=== PATIENT | male | born 1960 | race African-American/Black ===

== ENCOUNTER 2016-06-08 22:32 | Emergency (ER) | payer OTHER ==
[2016-06-08 22:59] VITALS: BP 108/80; PULSE 50; TEMP 98.1; BMI 22.3
[2016-06-08] MEDS ORDERED: morphine CARPU-JECT 4 MG/1 ML DISP.SYRIN IVPUSH ONE ×2 (23:18→23:58)
[2016-06-08] MEDS ORDERED: morphine CARPU-JECT 4 MG/1 ML DISP.SYRIN ONE (23:25)
[2016-06-09] LABS: BASOPHIL 0.6 % (0-2.0); EOSINOPHIL 2.3 % (0-4.5); MCH 29.4 pg (25.7-33.7); MCHC 33.3 g/dl (32.0-35.9); MEAN CELL VOLUME 88.1 fl (80-96); NEUTROPHILS 71.7 % (42.8-82.8); PLATELET COUNT 336 K/MM3 (134-434); RDW 13.2 % (11.9-15.9); WHITE BLOOD COUNT 9.9 K/mm3 (4.0-10.0)
--- NOTE | 2016-06-09 00:01 | PDOC ---
History of Present Illness - History of Present Illness Initial Comments: 06/09/16 00:04 Patient is a 55 year old male with significant medical hx of pacemaker, CVA x 2 , HTN, HLD, CAD s/p MA and defibrillator, and chronic lower back pain who is presenting to ED with lower back pain for several days that worsened today. The patient underwent an elective laminectomy and posterior fusion at L4-L5 on 05/29, performed by Dr. William Otoole at [facility]. The patient was discharged one week ago after surgery. Since his surgery, the patient complains of persistent lower back pain that has worsened today. Patient notes that his pain worsens with movement and palpation. His pain radiates to his left anterior thigh with some numbness. Denies fever, chills, chest pain, or shortness of breath. <Eloise Lozada - Last Filed: 06/09/16 00:37> - General History Source: Patient, Old Records Exam Limitations: No Limitations <Francisco Verdugo - Last Filed: 06/11/16 12:50> - General Chief Complaint: Back Pain Stated Complaint: CHEST PAIN Time Seen by Provider: 06/08/16 23:06 Past History <Eliose Lozada - Last Filed: 06/09/16 00:37> - Past Medical History Asthma: No Cardiac Disorders: Yes (defibrillator/ PACEMAKER, hx [place]) CVA: Yes (2013 / mild weakness left side ) Dementia: No Diabetes: No GI Disorders: No Disorders: No HTN: Yes Liver Disease: No Seizures: No Thyroid Disease: No - Surgical History Abdominal Surgery: Yes (hernia repair 1983) Cardiac Surgery: Yes (PACEMAKER/DEFIB: 2011) - Immunization History Immunization Up to Date: Yes - Psycho/Social/Smoking Cessation Hx Anxiety: No Suicidal Ideation: No Smoking Status: No Smoking History: Former smoker Have you smoked in the past 12 months: No Number of Cigarettes Smoked Daily: 0 If you are a former smoker, when did you quit?: 20 YEARS AGO Information on smoking cessation initiated: No 'Breaking Loose' booklet given: 09/17/13 Hx Alcohol Use: No Drug/Substance Use Hx: No Substance Use Type: Alcohol, Cocaine Hx Substance Use Treatment: Yes (detox, rehab, 12 steps) <Francisco Verdugo - Last Filed: 06/11/16 12:50> - Past Medical History Allergies/Adverse Reactions: Allergies Allergy/AdvReac Type Severity Reaction Status Date / Time diphenhydramine HCl Allergy Mild hives/blist Verified 06/08/16 22:59 [From [facility]] ers. Home Medications: Ambulatory Orders Carvedilol 12.5 mg PO DAILY 12/09/14 Enoxaparin Sodium 80 mg SQ DAILY 12/09/14 Nitroglycerin [Nitrostat] 0.4 mg SL BID PRN 12/09/14 Omeprazole [Prilosec (RX)] 40 mg PO DAILY 12/09/14 Simvastatin [Zocor -] 20 mg PO HS 12/09/14 Valsartan [Diovan -] 80 mg PO DAILY 12/09/14 Oxycodone HCl/Acetaminophen [Percocet 10-325 mg Tablet] 1 each PO TID PRN #90 tablet MDD 3 05/04/16 Azithromycin [Zithromax 250mg Tablets -] 250 mg PO DAILY #1 pkt 06/09/16 Oxycodone HCl/Acetaminophen [Percocet 5-325 mg Tablet] 1 tab PO Q6H PRN #6 tablet MDD 3 06/09/16 Review of Systems - Review of Systems Comments:: 06/09/16 00:10 GENERAL/CONSTITUTIONAL: No fever or chills. No weakness. HEAD, EYES, EARS, NOSE AND THROAT: No change in vision. No ear pain or discharge. No sore throat. CARDIOVASCULAR: No chest pain or shortness of breath. RESPIRATORY: No cough, wheezing, or hemoptysis. GASTROINTESTINAL: No nausea, vomiting, diarrhea or constipation. GENITOURINARY: No dysuria, frequency, or change in urination. MUSCULOSKELETAL: Lower back pain. No joint or muscle swelling or pain. No neck pain. SKIN: No rash NEUROLOGIC: No headache, vertigo, loss of consciousness, or change in strength/ sensation. <Eloise Lozada - Last Filed: 06/09/16 00:37> *Physical Exam - Vital Signs Last Vital Signs Temp Pulse Resp BP Pulse Ox 98.1 F 50 L 18 108/80 99 06/08/16 22:46 06/08/16 22:46 06/08/16 22:46 06/08/16 22:46 06/08/16 22:46 - Physical Exam Comments: 06/09/16 00:10 GENERAL: Awake, alert, and fully oriented, in no acute distress HEAD: No signs of trauma EYES: PERRLA, EOMI, sclera anicteric, conjunctiva clear ENT: Auricles normal inspection, hearing grossly normal, nares patent, oropharynx clear without exudates. Moist mucosa NECK: Normal ROM, supple, no lymphadenopathy, JVD, or masses LUNGS: Breath sounds equal, clear to auscultation bilaterally. No wheezes, and no crackles HEART: Pacemaker on left side of the chest. Regular rate and rhythm, normal S1 and S2, no murmurs, rubs or gallops ABDOMEN: Soft, nontender, normoactive bowel sounds. No guarding, no rebound. No masses EXTREMITIES: Normal range of motion, no edema. No clubbing or cyanosis. No cords, erythema, or tenderness BACK: Straight leg raise positive test LLE at 30. Lower back post operative vertical incision approximately 12 cm that is clean, dry, and intact with no erythema or drainage. Tender to palpation. NEUROLOGICAL: Cranial nerves II through XII grossly intact. Normal speech, normal gait SKIN: Warm, Dry, normal turgor, no rashes or lesions noted. ENDOCRINE: No increased thirst. No abnormal weight change. HEMATOLOGIC/LYMPHATIC: No anemia, easy bleeding, or history of blood clots. ALLERGIC/IMMUNOLOGIC: No hives or skin allergy. <Eloise Lozada - Last Filed: 06/09/16 00:37> - Vital Signs Last Vital Signs Temp Pulse Resp BP Pulse Ox 98.1 F 50 L 18 108/80 99 06/08/16 22:46 06/08/16 22:46 06/08/16 22:46 06/08/16 22:46 06/08/16 22:46 <Francisco Verdugo - Last Filed: 06/11/16 12:50> ED Treatment Course - LABORATORY CBC & Chemistry Diagram: 06/08/16 23:46 06/08/16 23:46 - Medications Given in the ED: ED Medications Discontinued Medications Generic Name Dose Route Start Last Admin Trade Name Freq PRN Reason Stop Dose Admin Morphine Sulfate 4 mg 06/08/16 23:18 06/08/16 23:53 Morphine Injection - IVPUSH 06/08/16 23:19 4 mg ONCE ONE Administration <Eloise Lozada - Last Filed: 06/09/16 00:37> - LABORATORY CBC & Chemistry Diagram: 06/08/16 23:46 06/08/16 23:46 - RADIOLOGY Radiology Studies Ordered: Category Date Time Status LUMBAR SPINE CT W/WO CONTRAST [CT] Stat CT Scan 06/08/16 23:18 Ordered CHEST X-RAY PORTABLE* [RAD] Stat Radiology 06/08/16 23:18 Taken - Medications Given in the ED: ED Medications Discontinued Medications Generic Name Dose Route Start Last Admin Trade Name Coby PRN Reason Stop Dose Admin Morphine Sulfate 4 mg 06/08/16 23:18 06/08/16 23:53 Morphine Injection - IVPUSH 06/08/16 23:19 4 mg ONCE ONE Administration <Francisco Verdugo - Last Filed: 06/11/16 12:50> Medical Decision Making - Medical Decision Making 06/09/16 00:01 A portion of this note was documented by scribe services under my direction. I have reviewed the details of the note, within reason, and agree with the documentation with the following case summary and management plan written by me. Patient treated in the ED. Nursing notes are reviewed and incorporated into the medical decision-making. Vital signs reviewed. Peripheral IV access obtained by the nurse, laboratory studies are drawn and sent, reviewed and interpreted by myself. Vital Signs Temp Pulse Resp BP Pulse Ox 98.1 F 50 L 18 108/80 99 06/08/16 22:46 06/08/16 22:46 06/08/16 22:46 06/08/16 22:46 06/08/16 22:46 55 year old male with Past medical history of hypertension, hyperlipidemia, coronary artery disease, chronic lower back pain presents to the [facility] department for acute lower back pain. On May 29, the patient had an elective laminectomy and posterior fusion at L4-L5 with bilateral transpedicular screws coupled intervening short vertical rods by Dr. William Otoole at [facility]. Patient had stayed inpatient in the hospital and was discharged one week ago to home. He has been having persistent postoperative lower back pain since his surgery. However, the last several days, patient noted acute worsening lower back pain. Noted today, without trauma, patient was experiencing severe lower back pain with flexion and movement and palpation creating shooting numbing sensations to the anterior left thigh. The patient does not have chest pain or shortness of breath. He has no thoracic complaints at this time. I suspect that this may potentially be postoperative pain. However, we'll obtain a cervical spine CT to look for postoperative competitions. Patient is also complaining about mild chest congestion and cough for 2 weeks. We'll get a chest x-ray rule out pneumonia given that the patient is postoperative. However , patient denies any fevers or chills. He is nontoxic appearing. If negative, will likely start empiric azithromycin. 06/09/16 01:46 CBC, BMP 06/08/16 23:46 06/08/16 23:46 CMP Sodium 141 mmol/L (136-145) 06/08/16 23:46 Potassium 4.1 mmol/L (3.5-5.1) 06/08/16 23:46 Chloride 105 mmol/L (98-107) 06/08/16 23:46 Carbon Dioxide 25 mmol/L (21-32) 06/08/16 23:46 Anion Gap 11 (8-16) 06/08/16 23:46 BUN 10 mg/dL (7-18) 06/08/16 23:46 Creatinine 1.1 mg/dL (0.7-1.3) 06/08/16 23:46 Creat Clearance w eGFR > 60 (>60) 06/08/16 23:46 Random Glucose 110 mg/dL (74-106) H D 06/08/16 23:46 Calcium 8.8 mg/dL (8.5-10.1) 06/08/16 23:46 Total Bilirubin 0.2 mg/dL (0.2-1.0) D 06/08/16 23:46 AST 20 U/L (15-37) D 06/08/16 23:46 ALT 28 U/L (12-78) D 06/08/16 23:46 Alkaline Phosphatase 120 U/L (45-117) H D 06/08/16 23:46 Total Protein 7.0 g/dl (6.4-8.2) 06/08/16 23:46 Albumin 3.6 g/dl (3.4-5.0) D 06/08/16 23:46 CT scan pending. Case signed out to Dr. Stovall for further management and disposition. <Francisco Verdugo - Last Filed: 06/11/16 12:50> *DC/Admit/Observation/Transfer - Attestations Scribe Attestion: 06/09/16 00:15 Documentation prepared by Eloise Lozada, acting as medical sociologist for Francisco Verdugo MD. <Eloise Lozada - Last Filed: 06/09/16 00:37> <Francisco Verdugo - Last Filed: 06/11/16 12:50> Diagnosis at time of Disposition: Back pain, Cough - Discharge Dispostion Disposition: HOME Condition at time of disposition: Good - Prescriptions Prescriptions: Oxycodone HCl/Acetaminophen [Percocet 5-325 mg Tablet] 1 tab PO Q6H PRN #6 tablet MDD 3 PRN Reason: Pain Azithromycin [Zithromax 250mg Tablets -] 250 mg PO DAILY #1 pkt - Referrals Referrals: Blanquita Vu MD [Primary Care Provider] -
[2016-06-09] MEDS ORDERED: morphine CARPU-JECT 4 MG/1 ML DISP.SYRIN ONE (00:35)
[2016-06-09 01:18] LABS: ALBUMIN 3.6 g/dl (3.4-5.0); ANION GAP 11 (8-16); BILIRUBIN,TOTAL 0.2 mg/dL (0.2-1.0); CALCIUM 8.8 mg/dL (8.5-10.1); CO2 25 mmol/L (21-32); CREATININE 1.1 mg/dL (0.7-1.3); GLUCOSE,RANDOM 110 mg/dL (74-106); SGOT/AST 20 U/L (15-37); SGPT/ALT 28 U/L (12-78)
[2016-06-09 01:20] LABS: ALK PHOS 120 U/L (45-117)
[2016-06-09] MEDS ORDERED: HYDROmorphone HCL CARPU-JECT 1 MG/1 ML DISP.SYRIN IVPB ONE (01:45)
[2016-06-09] MEDS ORDERED: HYDROmorphone HCL CARPU-JECT 1 MG/1 ML DISP.SYRIN ONE (02:39)
--- NOTE | 2016-06-09 05:20 | PDOC ---
*Physical Exam - Vital Signs Last Vital Signs Temp Pulse Resp BP Pulse Ox 98.1 F 50 L 18 108/80 99 06/08/16 22:46 06/08/16 22:46 06/08/16 22:46 06/08/16 22:46 06/08/16 22:46 ED Treatment Course - LABORATORY CBC & Chemistry Diagram: 06/08/16 23:46 06/08/16 23:46 - ADDITIONAL ORDERS Additional order review: Laboratory Results 06/08/16 23:46 Sodium 141 Potassium 4.1 Chloride 105 Carbon Dioxide 25 Anion Gap 11 BUN 10 Creatinine 1.1 Creat Clearance w eGFR > 60 Random Glucose 110 H D Calcium 8.8 Total Bilirubin 0.2 D AST 20 D ALT 28 D Alkaline Phosphatase 120 H D Total Protein 7.0 Albumin 3.6 D 06/08/16 23:46 RBC 3.87 L D MCV 88.1 MCHC 33.3 RDW 13.2 MPV 8.0 D Neutrophils % 71.7 Lymphocytes % 20.8 D Monocytes % 4.6 Eosinophils % 2.3 Basophils % 0.6 - Medications Given in the ED: ED Medications Discontinued Medications Generic Name Dose Route Start Last Admin Trade Name Freq PRN Reason Stop Dose Admin Hydromorphone HCl 1 mg 06/09/16 01:45 06/09/16 02:44 Dilaudid Injection - IVPB 06/09/16 01:46 1 mg ONCE ONE Administration Morphine Sulfate 4 mg 06/08/16 23:18 06/08/16 23:53 Morphine Injection - IVPUSH 06/08/16 23:19 4 mg ONCE ONE Administration Morphine Sulfate 4 mg 06/08/16 23:58 06/09/16 00:43 Morphine Injection - IVPUSH 06/08/16 23:59 4 mg ONCE ONE Administration Medical Decision Making - Medical Decision Making 06/09/16 05:20 Pt received on sign out, comfortable; he has negative evaluation including CT images. He has been given Azithromycin pack for antibiotic coverage and analgesia with percocet. He is encouraged to follow up with the PMD within the next 24 hours and return if there is any change otherwise in symptoms. *DC/Admit/Observation/Transfer Diagnosis at time of Disposition: Cough Back pain Qualifiers: Back pain location: low back pain Chronicity: unspecified Back pain laterality : unspecified Sciatica presence: with sciatica Sciatica laterality: bilateral sciatica Qualified Code(s): M54.42 - Lumbago with sciatica, left side; M54.41 - Lumbago with sciatica, right side - Discharge Dispostion Disposition: HOME Condition at time of disposition: Good Admit: No Decision to Admit order Date/Time: 06/09/16 05:15 - Prescriptions Prescriptions: Oxycodone HCl/Acetaminophen [Percocet 5-325 mg Tablet] 1 tab PO Q6H PRN #6 tablet MDD 3 PRN Reason: Pain Azithromycin [Zithromax 250mg Tablets -] 250 mg PO DAILY #1 pkt - Referrals Referrals: Blanquita Vu MD [Primary Care Provider] - - Patient Instructions - Post Discharge Activity
--- NOTE | 2016-06-12 17:19 | EKG ---
Test Reason : Blood Pressure : / mmHG Vent. Rate : 072 BPM Atrial Rate : 072 BPM P-R Int : 000 ms QRS Dur : 130 ms QT Int : 458 ms P-R-T Axes : 054 -46 036 degrees QTc Int : 501 ms Ventricular-paced rhythm ABNORMAL ECG WHEN COMPARED WITH ECG OF 08-JUN-2016 22:52, NO SIGNIFICANT CHANGE WAS FOUND Confirmed by NORY HURST MD ([id number]) on 06/12/2016 5:19:18 PM Referred By: Confirmed By:NORY HURST MD
--- NOTE | 2016-06-12 17:21 | EKG ---
Test Reason : Blood Pressure : / mmHG Vent. Rate : 079 BPM Atrial Rate : 079 BPM P-R Int : 126 ms QRS Dur : 136 ms QT Int : 418 ms P-R-T Axes : 072 -61 058 degrees QTc Int : 479 ms Atrial-sensed ventricular-paced rhythm ABNORMAL ECG WHEN COMPARED WITH ECG OF 20-JUN-2015 06:50, VENT. RATE HAS INCREASED BY 29 BPM Confirmed by NORY HURST MD ([id number]) on 06/12/2016 5:21:10 PM Referred By: Confirmed By:NORY HURST MD
== END 2016-06-09 05:38 | disposition home or self-care (01) ==
LOC: JER 22:32
PROC: 3E033NZ Introduction of Analgesics, Hypnotics, Sedatives into Peripheral Vein, Percutaneous Approach (ICD-10-PCS; principal; 2016-06-08)
DX: M54.42 Lumbago with sciatica, left side (principal); M54.41 Lumbago with sciatica, right side; R05 Cough; Z86.73 Personal history of transient ischemic attack (TIA), and cerebral infarction without residual deficits; I10 Essential (primary) hypertension; E78.5 Hyperlipidemia, unspecified; I25.2 Old myocardial infarction; Z95.810 Presence of automatic (implantable) cardiac defibrillator; Z98.890 Other specified postprocedural states; Z87.891 Personal history of nicotine dependence
CPT/HCPCS: 36415; 71010-TC; 72133-TC; 80053; 85025; 93005; 93010; 96374; 96375; 96376; 99282-25

== ENCOUNTER 2016-10-11 16:58 | Emergency (ER) | payer OTHER ==
[2016-10-11 17:02] VITALS: BP 114/81; PULSE 65; TEMP 98.3; BMI 22.8
--- NOTE | 2016-10-11 17:54 | PDOC ---
History of Present Illness - General Chief Complaint: Pain Stated Complaint: BACK PAIN/SWOLLEN LT ARM Time Seen by Provider: 10/11/16 17:26 History Source: Patient Exam Limitations: No Limitations - History of Present Illness Initial Comments: 10/11/16 17:49 56 yr male with history of CVA, HTN, DVT left arm, left leg, back surgery 2 months ago presents to ER with swelling and pain to the left elbow since last night. Pt also with pain to the back mid back at the surgical site. Pt believes he may have "bumped" the elbow against a door a few days ago. no urine or bowel dysfunction. 10/11/16 21:03 Upper Extremity Pain Location: left: elbow (lateraly swelling, tender to touch, no redness no warmth ) Past History - Past Medical History Allergies/Adverse Reactions: Allergies Allergy/AdvReac Type Severity Reaction Status Date / Time diphenhydramine HCl Allergy Mild hives/blist Verified 06/08/16 22:59 [From [facility]] ers. Home Medications: Ambulatory Orders Carvedilol 12.5 mg PO DAILY 12/09/14 Enoxaparin Sodium 80 mg SQ DAILY 12/09/14 Nitroglycerin [Nitrostat] 0.4 mg SL BID PRN 12/09/14 Omeprazole [Prilosec (RX)] 40 mg PO DAILY 12/09/14 Simvastatin [Zocor -] 20 mg PO HS 12/09/14 Valsartan [Diovan -] 80 mg PO DAILY 12/09/14 Gabapentin [Neurontin -] 300 mg PO Q8H 07/12/16 Oxycodone HCl/Acetaminophen [Percocet 10-325 mg Tablet] 1 each PO QID PRN #120 tablet MDD 4 07/12/16 Trazodone HCl [Desyrel -] 100 mg PO HS 07/12/16 Cyclobenzaprine HCl [Flexeril -] 10 mg PO TID 10/11/16 Oxycodone HCl/Acetaminophen [Percocet 5-325 mg Tablet] 1 - 2 tab PO Q6H PRN #12 tab MDD 6 10/11/16 Tamsulosin HCl 0.4 mg PO ASDIR 10/11/16 Asthma: No Cardiac Disorders: Yes (defibrillator/ PACEMAKER, hx [facility]) CVA: Yes (2013 / mild weakness left side ) Dementia: No Diabetes: No GI Disorders: No Disorders: No HTN: Yes Hypercholesterolemia: Yes Liver Disease: No Seizures: No Thyroid Disease: No Other medical history: enlarged prostaste - Surgical History Abdominal Surgery: Yes (hernia repair 1983) Cardiac Surgery: Yes (PACEMAKER/DEFIB: 2012) - Immunization History Immunization Up to Date: Yes - Psycho/Social/Smoking Cessation Hx Anxiety: No Suicidal Ideation: No Smoking Status: No Smoking History: Never smoked Have you smoked in the past 12 months: No Number of Cigarettes Smoked Daily: 0 If you are a former smoker, when did you quit?: 20 YEARS AGO Information on smoking cessation initiated: No 'Breaking Loose' booklet given: 09/17/13 Hx Alcohol Use: No Drug/Substance Use Hx: No Substance Use Type: None Hx Substance Use Treatment: Yes (detox, rehab, 12 steps) Review of Systems - Review of Systems Able to Perform ROS?: Yes Is the patient limited Mosotho proficient: No Constitutional: No: Symptoms Reported HEENTM: No: Symptoms Reported Respiratory: No: Symptoms reported Cardiac (ROS): No: Symptoms Reported ABD/GI: No: Symptoms Reported Musculoskeletal: Yes: Symptoms Reported *Physical Exam - Vital Signs Last Vital Signs Temp Pulse Resp BP Pulse Ox 98.3 F 65 18 114/81 98 10/11/16 17:00 10/11/16 17:00 10/11/16 17:00 10/11/16 17:00 10/11/16 17:00 - Physical Exam General Appearance: Yes: Nourished, Appropriately Dressed HEENT: positive: EOMI, SELENE Neck: positive: Supple. negative: Tender Respiratory/Chest: positive: Lungs Clear, Normal Breath Sounds Cardiovascular: positive: Regular Rhythm, Regular Rate Gastrointestinal/Abdominal: positive: Normal Bowel Sounds, Soft Musculoskeletal: positive: Normal Inspection. negative: CVA Tenderness, CVA Tenderness (R), CVA Tenderness (L) Extremity: positive: Normal Capillary Refill, Tender, Swelling (left elbow , FROM with pain with extension, nv intact, lateraly) Integumentary: positive: Normal Color, Dry, Warm Neurologic: positive: heart coordinator II-XII NML intact, Fully Oriented, Alert, Normal Mood/ Affect, Normal Response, Motor Strength 5/5 ED Treatment Course - LABORATORY CBC & Chemistry Diagram: 10/11/16 18:05 10/11/16 18:05 - RADIOLOGY Radiology Studies Ordered: Category Date Time Status ELBOW-LEFT [RAD] Stat Radiology 10/11/16 17:42 Ordered SPINE-LUMBAR ONLY [RAD] Stat Radiology 10/11/16 17:44 Ordered DUPLEX ART. UPPER COMPL US [US] Stat Ultrasound 10/11/16 17:48 Ordered Medical Decision Making - Medical Decision Making 10/11/16 17:53 cc: chronic back pain worse the past 3 days pt with left sided elbow pain denies trauma, history of DVT to left arm and left leg per pt. pt self administers lovenox. stable vital no fever or chills will get labs, xray r/o gout r/o tendonitis, DVT 10/11/16 19:24 sling to left elbow apply frequent warm compresses to the area every 3-4hrs take tylenol as needed for pain follow with the orthopedist tomorrow sling applied to the left elbow. 10/11/16 21:06 *DC/Admit/Observation/Transfer Diagnosis at time of Disposition: Back pain of thoracolumbar region Bursitis Qualifiers: Bursitis location: elbow Elbow bursitis location: unspecified Laterality: left Qualified Code(s): M70.32 - Other bursitis of elbow, left elbow - Discharge Dispostion Disposition: HOME Condition at time of disposition: Fair - Prescriptions Prescriptions: Oxycodone HCl/Acetaminophen [Percocet 5-325 mg Tablet] 1 - 2 tab PO Q6H PRN #12 tab MDD 6 PRN Reason: Severe Pain - Referrals Referrals: Blanquita Vu MD [Primary Care Provider] - - Patient Instructions Additional Instructions: follow with tomorrow for follow up or with the orthopedist call tomorrow to make appointment frequent warm moist compresses to the area of pain every 3-4hrs take the pain medication as prescribed return to ER for any fever, chills , worsening pain or any other concerns
[2016-10-11 18:35] LABS: URINE APPEARANCE CLEAR; URINE BILIRUBIN NEGATIVE (NEGATIVE); URINE BLOOD NEGATIVE (NEGATIVE); URINE COLOR YELLOW; URINE GLUCOSE (UA) NEGATIVE (NEGATIVE); URINE KETONE TRACE (NEGATIVE); URINE LEUK ESTERASE NEGATIVE (NEGATIVE); URINE NITRITE NEGATIVE (NEGATIVE); URINE UROBILINOGEN NEGATIVE mg/dL (0.2-1.0)
[2016-10-11 18:45] LABS: BASOPHIL 0.4 % (0-2.0); EOSINOPHIL 1.8 % (0-4.5); MCH 26.5 pg (25.7-33.7); MCHC 31.9 g/dl (32.0-35.9); MEAN PLT VOLUME 9.4 fl (7.5-11.1); NEUTROPHILS 61.7 % (42.8-82.8); PLATELET COUNT 184 K/MM3 (134-434); WHITE BLOOD COUNT 6.7 K/mm3 (4.0-10.0)
[2016-10-11 18:51] LABS: INR 1.13 (0.82-1.09); PROTHROMBIN TIME (PATIENT) 12.5 SEC (9.98-11.88)
[2016-10-11 19:08] LABS: URINE PROTEIN 1+ (NEGATIVE)
[2016-10-11 19:10] LABS: ALBUMIN 4.2 g/dl (3.4-5.0); ANION GAP 7 (8-16); CALCIUM 9.1 mg/dL (8.5-10.1); CO2 25 mmol/L (21-32); CREATININE 1.1 mg/dL (0.7-1.3); GLUCOSE,RANDOM 87 mg/dL (74-106); SGOT/AST 17 U/L (15-37); SGPT/ALT 16 U/L (12-78)
[2016-10-11 19:12] LABS: ALK PHOS 77 U/L (45-117); BILIRUBIN,TOTAL 1.1 mg/dL (0.2-1.0); TOT PROT 7.9 g/dl (6.4-8.2)
[2016-10-11] MEDS ORDERED: ACETAMINOPHEN 325 MG TABLET (FP) PO ONE (19:23)
[2016-10-11] MEDS ORDERED: ACETAMINOPHEN 325 MG TABLET (FP) ONE (19:57)
[2016-10-11 23:09] LABS: URINE HYALINE CAST 1 /lpf; URINE MUCUS MODERATE; URINE RBC 2 /hpf (0-3); URINE WBC 1 /hpf (3-5)
== END 2016-10-11 20:00 | disposition home or self-care (01) ==
LOC: JERFT 16:58
DX: M70.32 Other bursitis of elbow, left elbow (principal); I10 Essential (primary) hypertension; N40.0 Benign prostatic hyperplasia without lower urinary tract symptoms; Z86.718 Personal history of other venous thrombosis and embolism; Z86.711 Personal history of pulmonary embolism; Z79.01 Long term (current) use of anticoagulants; I69.854 Hemiplegia and hemiparesis following other cerebrovascular disease affecting left non-dominant side
CPT/HCPCS: 36415; 72100-TC; 73070-TC-LT; 80053; 81003; 81015; 84550; 85025; 85610; 93971; 99281-25

== ENCOUNTER 2017-06-12 08:36 | Observation (INO) | payer OTHER ==
[2017-06-12 08:46] VITALS: BMI 24.4
--- NOTE | 2017-06-12 09:04 | PDOC ---
History of Present Illness - General Chief Complaint: Chest Pain Stated Complaint: THROAT PAIN Time Seen by Provider: 06/12/17 09:03 History Source: Patient Exam Limitations: No Limitations - History of Present Illness Initial Comments: 06/12/17 09:20 HPI: This 56 yr old male presents to ER with c/o 2days chest pain, sore throat, diff swallowing, that continues and some SOB last evening now resolved. He denies any fever, cough, chills, nausea, vomiting, abd pain, wheezing, sob currently. Chief Compliant: chest pain, sore throat, diff swallowing Pain location: mid sternal cp, sore throat Duration:2 days Modifying factors:took a nitro this AM Quality:sharp intermittent Radiating:to right shoulder Severity:6-10 Time:intermittent PMH: CVA, hypertension, left upper extremity DVT, back surgery one year ago with a laminectomy, AICD/dual pacer chamber, ID, spinal stenosis FH: Pt has not recently traveled outside the country in the last 30 days. Pt has not been in contact with people who have traveled out of the country, in contact with people who have been ill with fever, n, v, d. SH: smoking use: Former use of smoking 20 years ago illicit drug use: Former use of cocaine 24 years ago alcohol use: Former use of alcohol 22 years ago employment/educational status: sexual history: PSH: PPM placement, lumbar laminectomy 2017 Home med use noted on MAY Allergies:flexeril and benadryl Immunizations: did not get flu shot this year PCP: Sy mcnamara Past History - Past Medical History Allergies/Adverse Reactions: Allergies Allergy/AdvReac Type Severity Reaction Status Date / Time diphenhydramine HCl Allergy Intermediate hives/blist Verified 06/12/17 08:41 [From Benadryl] ers. cyclobenzaprine HCl AdvReac Intermediate drowsy, Verified 06/12/17 08:41 [From Flexeril] sedation Home Medications: Ambulatory Orders Apixaban [Eliquis] 10 mg PO DAILY 06/12/17 Carvedilol 12.5 mg PO DAILY 06/12/17 Gabapentin 300 mg PO DAILY 06/12/17 Omeprazole 40 mg PO DAILY 06/12/17 Oxycodone HCl/Acetaminophen [Percocet 10-325 mg Tablet] 1 each PO PRN 06/12/17 Simvastatin 20 mg PO DAILY 06/12/17 Tamsulosin HCl [Flomax] 0.4 mg PO DAILY 06/12/17 Trazodone HCl 100 mg PO DAILY 06/12/17 Valsartan [Diovan] 80 mg PO DAILY 06/12/17 Asthma: No Cardiac Disorders: Yes (defibrillator/ PACEMAKER, hx ID) CVA: Yes (2013 / mild weakness left side ) COPD: No Dementia: No Diabetes: No GI Disorders: No Disorders: No HTN: Yes Hypercholesterolemia: Yes Liver Disease: No Seizures: No Thyroid Disease: No - Surgical History Abdominal Surgery: Yes (hernia repair 1983) Cardiac Surgery: Yes (PACEMAKER/DEFIB: 2011) Orthopedic Surgery: Yes (05/29/16 lumbar fusion) - Immunization History Immunization Up to Date: Yes - Suicide/Smoking/Psychosocial Hx Smoking Status: No Smoking History: Former smoker Have you smoked in the past 12 months: No Number of Cigarettes Smoked Daily: 0 If you are a former smoker, when did you quit?: 20 YEARS AGO Information on smoking cessation initiated: No 'Breaking Loose' booklet given: 09/17/13 Hx Alcohol Use: Yes (none x 20 years) Drug/Substance Use Hx: Yes (none x 20 years) Substance Use Type: Alcohol, Cocaine Hx Substance Use Treatment: Yes (detox, rehab, 12 steps) Review of Systems - Review of Systems Comments:: 06/12/17 12:16 General statement: Normally doing well but now complaints of chest pain as well as a sore throat Hematology: Positive history of bleeding/blood thinners on eloquent requested 10 mg twice a day Skin: Neg for lesions, rash, bruising. HEENT: Neg symptoms Respiratory: Neg SOB or difficulty in breathing Cardiac: Positive midsternal chest pain GI: Neg pain, n/v : Neg problems on voiding MS: Neg for joint pain/stiffness, no edema Neuro: Neg for LOC, weakness, Endocrine: Neg for excess thirst/hunger, cold/heat intolerance, excess sweating Allergies: Positive for allergies *Physical Exam - Vital Signs Last Vital Signs Temp Pulse Resp BP Pulse Ox 98.6 F 79 19 145/88 100 06/12/17 08:42 06/12/17 08:42 06/12/17 08:42 06/12/17 08:42 06/12/17 08:42 - Physical Exam Comments: 06/12/17 12:17 General Appearance: This well appearing 56-year-old male V/S: hemodynamically stable, afebrile Skin: WNL of pt's skin color, no signs of pallor, mottling, cyanosis Head:symmetrical Eyes: EOM's intact, PERRLA Ears: denies pain Nose: patent Throat: lips, teeth, gums, tongue, buccal mucos pink and moist Lungs: Chest symmetry equal. Cap refill <3 seconds. Lung sounds clear Cardiac: PMI at R 4MCL space, pos S1 and S2, regular rate. Abdomen: Soft, round, nontender : Not observed Muscularskeletal: Gait steady, ambulated in to ER, no edema +PMS Neuro: AAOx3, cognitively intact, speech clear and appropriate. ED Treatment Course - LABORATORY CBC & Chemistry Diagram: 06/12/17 09:18 06/12/17 09:18 Medical Decision Making - Medical Decision Making 06/12/17 12:18 This 56-year-old male was seen and examined. He is stating he has some chest pain and took some nitroglycerin at home earlier today. He does have an extensive cardiac history. He is also complaining of a severe sore throat and difficulty in swallowing. He does not recall being in close contact with anyone that was ill. He denies any fever, chills, nausea or vomiting. With patient's multiple complaints I have planned for the following -labs -cardiac labs -bag machine tender /EKG -Flu and strep cx -UA -CXR Pt with the following results. -neg UA -Flu neg - + Strep cx started on Azithromycin 500 mg today -EKG with + V demand spikes consistant on EKG -+ troponins with a 0.09 -will restart his eliquest today, give ASA *DC/Admit/Observation/Transfer Diagnosis at time of Disposition: Strep pharyngitis Chest pain Qualifiers: Chest pain type: other chest pain Qualified Code(s): R07.89 - Other chest pain - Discharge Dispostion Condition at time of disposition: Guarded Admit: Yes - Referrals Referrals: Blanquita Vu MD [Primary Care Provider] - - Patient Instructions - Post Discharge Activity
[2017-06-12] MEDS ORDERED: ACETAMINOPHEN 500 MG TABLET (FP) PO ONE (09:21)
[2017-06-12] MEDS ORDERED: ACETAMINOPHEN 325 MG TABLET (FP) ONE (10:18)
[2017-06-12 10:40] LABS: BASO % 0.4 % (0-2.0); EOS % 0.7 % (0-4.5); HEMATOCRIT 42.1 % (35.4-49); HEMOGLOBIN 13.7 GM/dL (11.7-16.9); LYMPH % 8.8 % (8-40); MCH 27.9 pg (25.7-33.7); MCHC 32.7 g/dl (32.0-35.9); MEAN CELL VOLUME 85.4 fl (80-96); MEAN PLT VOLUME 9.2 fl (7.5-11.1); MONO % 5.4 % (3.8-10.2); NEUT % 84.7 % (42.8-82.8); PLATELET COUNT 151 K/MM3 (134-434); RBC 4.93 M/mm3 (4.00-5.60); RDW 16.8 % (11.9-15.9); WHITE BLOOD COUNT 10.7 K/mm3 (4.0-10.0)
[2017-06-12 10:43] LABS: URINE APPEARANCE CLEAR; URINE BILIRUBIN NEGATIVE (NEGATIVE); URINE BLOOD NEGATIVE (NEGATIVE); URINE COLOR LTYELLOW; URINE GLUCOSE (UA) NEGATIVE (NEGATIVE); URINE KETONE NEGATIVE (NEGATIVE); URINE LEUK ESTERASE NEGATIVE (NEGATIVE); URINE NITRITE NEGATIVE (NEGATIVE); URINE PROTEIN NEGATIVE (NEGATIVE); URINE UROBILINOGEN NEGATIVE mg/dL (0.2-1.0)
[2017-06-12 11:02] LABS: ALBUMIN 4.3 g/dl (3.4-5.0); ANION GAP 10 (8-16); BILIRUBIN,TOTAL 0.7 mg/dL (0.2-1.0); BLOOD UREA NITROGEN 8 mg/dL (7-18); CALCIUM 9.3 mg/dL (8.5-10.1); CHLORIDE 103 mmol/L (98-107); CO2 26 mmol/L (21-32); GLUCOSE,RANDOM 96 mg/dL (74-106); POTASSIUM 4.5 mmol/L (3.5-5.1); SGOT/AST 19 U/L (15-37); SGPT/ALT 21 U/L (12-78); SODIUM 139 mmol/L (136-145); TOT PROT 7.9 g/dl (6.4-8.2)
[2017-06-12 11:05] LABS: ALK PHOS 78 U/L (45-117)
[2017-06-12] MEDS ORDERED: AZITHROMYCIN 250 MG TABLET PO ONE (11:53)
--- NOTE | 2017-06-12 11:56 | EKG ---
Test Reason : Blood Pressure : / mmHG Vent. Rate : 076 BPM Atrial Rate : 076 BPM P-R Int : 136 ms QRS Dur : 144 ms QT Int : 414 ms P-R-T Axes : 068 -53 061 degrees QTc Int : 465 ms Atrial-sensed ventricular-paced rhythm ABNORMAL ECG WHEN COMPARED WITH ECG OF 09-JUN-2016 02:50, VENT. RATE HAS INCREASED BY 4 BPM Confirmed by NIKKI JIMÉNEZ, KELLY ([id number]) on 06/12/2017 11:56:00 AM Referred By: Confirmed By:KELLY JORDAN MD
[2017-06-12] MEDS ORDERED: VALSARTAN 80 MG TABLET (UD) PO ONE (12:27)
[2017-06-12] MEDS ORDERED: TAMSULOSIN HCL 0.4 MG CAP.ER.24H (FP) PO ONE (12:27)
[2017-06-12] MEDS ORDERED: CARVEDILOL 12.5 MG TABLET (FP) PO ONE (12:27)
[2017-06-12] MEDS ORDERED: ASPIRIN 325 MG TABLET PO ONE (12:27)
[2017-06-12] MEDS ORDERED: ATORVASTATIN CA 40 MG TABLET (FP) PO ONE (12:27)
--- NOTE | 2017-06-12 12:56 | HP ---
CHIEF COMPLAINT: "my throat and chest hurts." Cardiology: Dr Jovan Oropeza from [facility] [phone] HISTORY OF PRESENT ILLNESS: This 56 yo M with PMH of CVA (8 yrs ago and 5 yrs ago w residual LLE, LUE weakness), CAD s/p WA (10 yrs ago, 4 yrs ago), Medtronic AICD/dual pacer chamber , history if arrythmia, LUE DVT provoked by AICD procedure, on eliqis, HTN, spinal stenosis s/p laminectomy last year, who presents with sever throat pain with malaise x 1 day and CP since this morning. patient denies rhinorrhea, f/c or cough but box have pain with swallowing and neck tenderness; he reports having visited a doctors office 3 days ago but denies other sick contacts. He reports diffuse body aches and dizziness. This morning he woke up with severe 10 /10 sharp L sided CP radiating to R shoulder and R jaw, exacerbated by arm movement, deep inspiration and pressing on chest wall. It is located over his AICD. He has had similar pain last time he has an WA. He reports mild sob due to pain with inspiration but denies palpitations or diaphoresis. hes last TTE and stress test were 2 yra ago that showed "bad" heart function and he follows with mica paster regularly. he denies abd pain, n/v/d, dysuria. In Ed foudn to have troponemia. Reports atht his mica paster told him 3 mo ago that his heart numbers were a bit elevated. ER course was notable for: (1)labs (2)cxr (3)azithromycn, tylenol Recent Travel: denies PAST MEDICAL HISTORY: as above PAST SURGICAL HISTORY: PPM placement, lumbar laminectomy 2016 Social History: lives with Smoking:quit smoking 20 years ago Alcohol:quit alcohol 22 years ago Drugs:quit cocaine 24 years ago Family History: cad Allergies diphenhydramine HCl [From Benadryl] Allergy (Intermediate, Verified 06/12/17 08: 41) hives/blisters. cyclobenzaprine HCl [From Flexeril] Adverse Reaction (Intermediate, Verified 08:41) drowsy, sedation HOME MEDICATIONS: Home Medications Medication Instructions Recorded Apixaban [Eliquis] 10 mg PO DAILY 06/12/17 Carvedilol 12.5 mg PO DAILY 06/12/17 Gabapentin 300 mg PO DAILY 06/12/17 Omeprazole 40 mg PO DAILY 06/12/17 Oxycodone HCl/Acetaminophen 1 each PO PRN 06/12/17 [Percocet 10-325 mg Tablet] Simvastatin 20 mg PO DAILY 06/12/17 Tamsulosin HCl [Flomax] 0.4 mg PO DAILY 06/12/17 Trazodone HCl 100 mg PO DAILY 06/12/17 Valsartan [Diovan] 80 mg PO DAILY 06/12/17 REVIEW OF SYSTEMS CONSTITUTIONAL: Absent: fever, chills, diaphoresis, weight change HEENT: Absent: rhinorrhea, nasal congestion CARDIOVASCULAR: Absent: syncope, palpitations, irregular heart rate, peripheral edema RESPIRATORY: Absent: cough, shortness of breath GASTROINTESTINAL: Absent: abdominal pain, abdominal distension, nausea, vomiting, diarrhea, constipation GENITOURINARY: Absent: dysuria MUSCULOSKELETAL: Absent: back pain SKIN: Absent: rash, itching, pallor HEMATOLOGIC/IMMUNOLOGIC: Absent: frequent infections ENDOCRINE: Absent: unexplained weight gain, unexplained weight loss, heat intolerance, cold intolerance NEUROLOGIC: Absent: headache, focal weakness or paresthesias PSYCHIATRIC: Absent: anxiety, depression PHYSICAL EXAMINATION Vital Signs - 24 hr 06/12/17 06/12/17 08:42 12:10 Temperature 98.6 F Pulse Rate 79 Pulse Rate [ 84 Right Radial] Respiratory 19 18 Rate Blood Pressure 145/88 Blood Pressure 112/74 [Left Arm] O2 Sat by Pulse 100 100 Oximetry (%) GENERAL: Awake, alert, and fully oriented, in no acute distress. HEAD: Normal with no signs of trauma. EYES: Pupils equal, round and reactive to light, extraocular movements intact, sclera anicteric, conjunctiva clear. No lid lag. EARS, NOSE, THROAT: Ears normal, nares patent, oropharynx erythematous with faint white exudates. Moist mucous membranes. NECK: supple, tender tonsils, mild cervical adenopathy LUNGS: Breath sounds equal, clear to auscultation bilaterally. HEART: Regular rate and rhythm, normal S1 and S2 grade 2 systolic murmur ABDOMEN: Soft, nontender, not distended, normoactive bowel sounds, no guarding, no rebound, no masses. MUSCULOSKELETAL: No CVA tenderness. UPPER EXTREMITIES: 2+ pulses, warm, well-perfused. No cyanosis. No clubbing. No peripheral edema. LOWER EXTREMITIES: 2+ pulses, warm, well-perfused. No calf tenderness. No peripheral edema. NEUROLOGICAL: Cranial nerves II-XII intact. Normal speech. LUE 4-/5 strength, LLE 4/5 strength, RUE/RLE 5/5 strength, sensation intact b/l, 1+ patellar reflexes b/l. PSYCHIATRIC: Cooperative. Good eye contact. Appropriate mood and affect. SKIN: Warm, dry Laboratory Results - last 24 hr 06/12/17 06/12/17 06/12/17 09:18 09:18 09:18 WBC 10.7 H D RBC 4.93 Hgb 13.7 Hct 42.1 MCV 85.4 MCH 27.9 MCHC 32.7 RDW 16.8 H Plt Count 151 MPV 9.2 Neutrophils % 84.7 H D Lymphocytes % 8.8 D Monocytes % 5.4 Eosinophils % 0.7 Basophils % 0.4 Sodium 139 Potassium 4.5 Chloride 103 Carbon Dioxide 26 Anion Gap 10 BUN 8 Creatinine 1.0 Creat Clearance w eGFR > 60 Random Glucose 96 D Calcium 9.3 Total Bilirubin 0.7 D AST 19 D ALT 21 D Alkaline Phosphatase 78 Creatine Kinase 200 Creatine Kinase Index 1.0 CK-MB (CK-2) 2.053 Troponin I 0.09 H D Total Protein 7.9 Albumin 4.3 Urine Color Ltyellow Urine Appearance Clear Urine pH 5.0 Ur Specific [place] 1.013 Urine Protein Negative Urine Glucose (UA) Negative Urine Ketones Negative Urine Blood Negative Urine Nitrite Negative Urine Bilirubin Negative Urine Urobilinogen Negative Ur Leukocyte Esterase Negative ASSESSMENT/PLAN: This 56 yo M with PMH of CVA (8 yrs ago and 5 yrs ago w residual LLE, LUE weakness), CAD s/p WA (10 yrs ago, 4 yrs ago), Medtronic AICD/dual pacer chamber , LUE DVT provoked by AICD procedure, on eliqis, HTN, spinal stenosis s/p laminectomy last year, who presents with sever throat pain with malaise x 1 day and CP since this morning. Strep A Orpharyngeal infection -PO amoxicillin 500 bid -oral cepacol for symptomatic relief Atypical chest pain with troponemia -trop 0.09, above baseline -may be a stress reaction to infection or a primary cardiac cause -severe anterior chest tenderness suspicions for defibrillator shock overnight -EKG new t wave inversions in v5-6 -trend trop -tele monitoring -resume home coreg, eliquis, plavix, statin -TTE -pacemaker interrogation HTN -resume diovan Chronic back pain -on percocet at home -order tylenol, patient requests ultram instread of percocet FEN No IVF monitor mag/phos/k cardiac diet eliquis Dispo: obs tele Problem List - Problem (1) Atypical chest pain Code(s): R07.89 - OTHER CHEST PAIN (2) Strep pharyngitis Code(s): J02.0 - STREPTOCOCCAL PHARYNGITIS (3) Chest pain Code(s): R07.9 - CHEST PAIN, UNSPECIFIED Qualifiers: Chest pain type: other chest pain Qualified Code(s): R07.89 - Other chest pain; R07.8 - Other chest pain (4) Back spasm Code(s): M62.830 - MUSCLE SPASM OF BACK (5) Bipolar disorder Code(s): F31.9 - BIPOLAR DISORDER, UNSPECIFIED (6) Chronic back pain Code(s): M54.9 - DORSALGIA, UNSPECIFIED; G89.29 - OTHER CHRONIC PAIN (7) Coronary arteriosclerosis Code(s): I25.10 - ATHSCL HEART DISEASE OF [place] CORONARY ARTERY W/O ANG PCTRS (8) DVT (deep venous thrombosis) Code(s): I82.409 - ACUTE EMBOLISM AND THOMBOS UNSP DEEP VN UNSP LOWER EXTREMITY (9) Depression Code(s): F32.9 - MAJOR DEPRESSIVE DISORDER, SINGLE EPISODE, UNSPECIFIED (10) H/O cardiac arrest Code(s): Z86.74 - PERSONAL HISTORY OF SUDDEN CARDIAC ARREST (11) History of CVA with residual deficit Code(s): I69.30 - UNSPECIFIED SEQUELAE OF CEREBRAL INFARCTION (12) Hyperlipemia Code(s): E78.5 - HYPERLIPIDEMIA, UNSPECIFIED (13) Hypertension Code(s): I10 - ESSENTIAL (PRIMARY) HYPERTENSION (14) Spinal stenosis at L4-L5 level Code(s): M48.06 - SPINAL STENOSIS, LUMBAR REGION * DO NOT USE * Visit type - Emergency Visit Emergency Visit: Yes ED Registration Date: 06/12/17 Care time: The patient presented to the Emergency Department on the above date and was hospitalized for further evaluation of their emergent condition. - New Patient This patient is new to me today: Yes Date on this admission: 06/12/17 - Critical Care Critical Care patient: No
--- NOTE | 2017-06-12 13:37 | HP ---
CHIEF COMPLAINT: Chest pain, sore throat PCP: Dr. Blanquita Hassan HISTORY OF PRESENT ILLNESS: 56 yo man w/ pmh of CVA x2 (most recently 5 yrs, residual L sided hemiparesis), CAD, VT x2 (10 and 4 years ago), AICD PPM (no prior interrogation, [employer]) complicated by LUE DVT, HTN and spinal stenosis, who presented to ED w/ one day of throat pain and new CP this morning. Pt with extensive cardiac hx, independent in all ADLs. Pt states he noted throat pain, pain with swallowing, chills last night; denies fevers, cough, SOB, diarrhea, dysuria, myalgias. This AM, noted 6/10 substernal chest pain and tightness with radiation to R neck and jaw, exacerbated by arm movement and deep inspiration. Took 2 nitro tabs with no resolution. States the sensation was similar to prior VT 4 years ago. No CLARKE, vision changes, dizziness, LE swelling, ab pain, LE edema. No sick contacts, travel, recent exercise, trauma to chest wall. Endorse sob and chest tightness this AM as well, in addition to pain with deep inspiration, no palpitations. Prior Echo and stress test 2 years ago, showed poor cardiac function per patient. Pt follows w/ Dr. Russ from [facility], states he was noted to have elevated trops a few months ago. 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 cyclobenzaprine HCl [From Flexeril] Adverse Reaction (Intermediate, Verified 08:41) drowsy, sedation HOME MEDICATIONS: Home Medications Medication Instructions Recorded Apixaban [Eliquis] 10 mg PO DAILY 06/12/17 Carvedilol 12.5 mg PO DAILY 06/12/17 Gabapentin 300 mg PO DAILY 06/12/17 Omeprazole 40 mg PO DAILY 06/12/17 Oxycodone HCl/Acetaminophen 1 each PO PRN 06/12/17 [Percocet 10-325 mg Tablet] Simvastatin 20 mg PO DAILY 06/12/17 Tamsulosin HCl [Flomax] 0.4 mg PO DAILY 06/12/17 Trazodone HCl 100 mg PO DAILY 06/12/17 Valsartan [Diovan] 80 mg PO DAILY 06/12/17 REVIEW OF SYSTEMS CONSTITUTIONAL: +chills, +malaise Absent: fever, diaphoresis, generalized weakness, loss of appetite, weight change HEENT: +throat pain, + throat swelling Absent: rhinorrhea, nasal congestion, difficulty swallowing, mouth swelling, ear pain, eye pain, visual changes CARDIOVASCULAR: +chest pain Absent: syncope, palpitations, irregular heart rate, lightheadedness, peripheral edema RESPIRATORY: Absent: cough, shortness of breath, dyspnea with exertion, orthopnea, wheezing, stridor, hemoptysis GASTROINTESTINAL: Absent: abdominal pain, abdominal distension, nausea, vomiting, diarrhea, constipation, melena, hematochezia GENITOURINARY: Absent: dysuria, frequency, urgency, hesitancy, hematuria, flank pain, genital pain MUSCULOSKELETAL: Absent: myalgia, arthralgia, joint swelling, back pain, neck pain SKIN: Absent: rash, itching, pallor HEMATOLOGIC/IMMUNOLOGIC: Absent: easy bleeding, easy bruising, lymphadenopathy, frequent infections ENDOCRINE: Absent: unexplained weight gain, unexplained weight loss, heat intolerance, cold intolerance NEUROLOGIC: Absent: headache, focal weakness or paresthesias, dizziness, unsteady gait, seizure, mental status changes, bladder or bowel incontinence PSYCHIATRIC: Absent: anxiety, depression, suicidal or homicidal ideation, hallucinations. PHYSICAL EXAMINATION Vital Signs - 24 hr 06/12/17 06/12/17 08:42 12:10 Temperature 98.6 F Pulse Rate 79 Pulse Rate [ 84 Right Radial] Respiratory 19 18 Rate Blood Pressure 145/88 Blood Pressure 112/74 [Left Arm] O2 Sat by Pulse 100 100 Oximetry (%) GENERAL: Awake, alert, and fully oriented, in no acute distress. HEAD: Normal with no signs of trauma. EYES: Pupils equal, round and reactive to light, extraocular movements intact, sclera anicteric, conjunctiva clear. No lid lag. EARS, NOSE, THROAT: Posterior oropharynx with erythema, trace exudates. Ears normal, nares patent, Moist mucous membranes. NECK: BL cervical lymphadenopathy. Normal range of motion, supple without lymphadenopathy, JVD, or masses. LUNGS: Breath sounds equal, clear to auscultation bilaterally. No wheezes, and no crackles. No accessory muscle use. HEART: Anterior PPM noted on L anterior chest wall. Exquistely tender to palpation. Regular rate and rhythm, normal S1 and S2, 2/6 systolic murmur ABDOMEN: Mild discomfort to palpation in epigastric region. Soft, not distended , normoactive bowel sounds, no guarding, no rebound, no masses. No hepatomegaly or splenomegaly. MUSCULOSKELETAL: Normal range of motion at all joints. No bony deformities or tenderness. No CVA tenderness. UPPER EXTREMITIES: 2+ pulses, warm, well-perfused. No cyanosis. No clubbing. No peripheral edema. 5/5 strength in RUE, 4/5 in LUE. LOWER EXTREMITIES: 2+ pulses, warm, well-perfused. No calf tenderness. No peripheral edema. 5/5 in RLE, 4/5 in LLE. 1+ patellar reflexes BL NEUROLOGICAL: Cranial nerves II-XII intact. Normal speech. Normal gait. PSYCHIATRIC: Cooperative. Good eye contact. Appropriate mood and affect. SKIN: Warm, dry, normal turgor, no rashes or lesions noted, normal capillary refill. Laboratory Results - last 24 hr CBC, BMP 06/12/17 09:18 06/12/17 09:18 06/12/17 06/12/17 06/12/17 09:18 09:18 09:18 WBC 10.7 H D RBC 4.93 Hgb 13.7 Hct 42.1 MCV 85.4 MCH 27.9 MCHC 32.7 RDW 16.8 H Plt Count 151 MPV 9.2 Neutrophils % 84.7 H D Lymphocytes % 8.8 D Monocytes % 5.4 Eosinophils % 0.7 Basophils % 0.4 Sodium 139 Potassium 4.5 Chloride 103 Carbon Dioxide 26 Anion Gap 10 BUN 8 Creatinine 1.0 Creat Clearance w eGFR > 60 Random Glucose 96 D Calcium 9.3 Total Bilirubin 0.7 D AST 19 D ALT 21 D Alkaline Phosphatase 78 Creatine Kinase 200 Creatine Kinase Index 1.0 CK-MB (CK-2) 2.053 Troponin I 0.09 H D Total Protein 7.9 Albumin 4.3 Urine Color Ltyellow Urine Appearance Clear Urine pH 5.0 Ur Specific [place] 1.013 Urine Protein Negative Urine Glucose (UA) Negative Urine Ketones Negative Urine Blood Negative Urine Nitrite Negative Urine Bilirubin Negative Urine Urobilinogen Negative Ur Leukocyte Esterase Negative Microbiology 06/12/17 09:18 Nasopharyngeal Swab Influenza Types A,B Antigen (SON) - Final 06/12/17 09:18 Nasopharyngeal Swab - Final 06/12/17 09:18 Throat Group A Strep Rapid Antigen - Final 06/12 CXR - No acute pathology 06/12 EKG - Rate 76, QTC 465, RAD, atrial-sensed, vpaced, No ST/TW ASSESSMENT/PLAN: 56 yo man w/ pmh of CVA x2 (most recently 5 yrs, residual L sided hemiparesis), CAD, VT x2 (10 and 4 years ago), AICD PPM (last interrogated 2-3 years ago, [employer]) complicated by LUE DVT, HTN and spinal stenosis, who presented to ED w/ one day of throat pain and new CP this morning. #Strep Pharyngitis - Rapid strep +; CXR negative - trend WBC, fever - Amoxicillin 500mg BID #Atypical chest pain - initial trop 0.09; possible cardiac vs. infection; likely MSK - Trend trops - EKG noted above; serial ekgs - cardiology consulted, recs appreciated - Dr. Edmonds - Will call BS in morning for PPM interrogation - Tele monitoring - f/u echo results - Restart BB, eliquis, plavix, statin - anterior CP to palpation over PPM site #HTN - c/w home diovan - monitor #Back Pain - Home percocet for pain control - Tylenol prn for pain control - Pt requests Ultram; ordered #HLD - c/w home lipitor - f/u lipid panel #FEN PO hydration Monitor lytes Cardiac diet PPX Eliquis PPI Dispo - Tele Obs Plan discussed with attending, Dr. Zelda Blackman, PGY1 Visit type - Emergency Visit Emergency Visit: Yes ED Registration Date: 06/12/17 Care time: The patient presented to the Emergency Department on the above date and was hospitalized for further evaluation of their emergent condition. - New Patient This patient is new to me today: Yes Date on this admission: 06/13/17 - Critical Care Critical Care patient: No Hospitalist Screening - Colonoscopy Questionnaire Colonoscopy Questionnaire: Colonoscopy Questionnaire - Patient: 50 - 75 years old and never had a screening colonoscopy: Unknown History of colon or rectal polyps, or CA: Unknown History of IBD, Crohn's disease or UC: Unknown History of abdominal radiation therapy as a child: Unknown - Relative: 1 with colon or rectal CA, or polyps at age 60 or younger: Unknown Colon or rectal CA diagnosed at age 45 or younger: Unknown Multiple relatives with colon or rectal CA: Unknown - Outcome: Screening Result: Negative Screen
[2017-06-12] MEDS ORDERED: ACETAMINOPHEN 325 MG TABLET (FP) PO PRN (16:00)
[2017-06-12] MEDS ORDERED: traMADol HCL 50 MG TABLET ONE (16:20)
[2017-06-12] MEDS: traMADol HCL 50 MG TABLET PO PRN ×2 (16:23→21:18)
[2017-06-12 17:03] LABS: PHOSPHOROUS 2.4 mg/dL (2.5-4.9)
--- NOTE | 2017-06-12 17:07 | PN ---
Teaching Attending Note Name of Resident: Jose Blackman ATTENDING PHYSICIAN STATEMENT I saw and evaluated the patient. I reviewed the resident's note and discussed the case with the resident. I agree with the resident's findings and plan as documented. SUBJECTIVE:56yo M with PMH extensive cardiac hx with AICD, multiple DVT on eliquis presenting with Sore throat since last night. assoc iwth subjective fever and chills. This AM woke up with severe CP, radiating throughout his chest. persisting for the past 10+hours. exacerbated by movement and leaning forward. no alleviating factors. states CP is similar in nature to when he was diagnosed with [place] 4 years ago. last stress test was 2-3years ago and reports as negative. never had his AICD interrogated since it was implanted 4 years ago. denies receiving a shock from his AICD but does sleep alone so no one else can confirm was told by PMD recently that his troponin is elevated at baseline OBJECTIVE: Last Vital Signs Temp Pulse Resp BP Pulse Ox 98.6 F 62 18 118/63 98 06/12/17 08:42 06/12/17 16:31 06/12/17 16:31 06/12/17 16:31 06/12/17 16:31 General NAD HEENT +erythematous pharynx. +exudate on L pharynx CV S1 S2 RRR. +diffuse chest wall tenderness +L sided AICD present, no swelling or erythema noted around device Lungs CTA B/L no wheezing/rales/rhonchi ASSESSMENT AND PLAN: 56 yo M with PMH of CVA (8 yrs ago and 5 yrs ago w residual LLE, LUE weakness) , CAD s/p [place] (10 yrs ago, 4 yrs ago), Medtronic AICD/dual pacer chamber, history if arrythmia, LUE DVT provoked by AICD procedure, on eliqis, HTN, spinal stenosis s/p laminectomy last year presenting with throat and chest pain 1. CP- tele observation. likely muskuloskeletal. concern may have received shock from AICD. mild troponin elevation. EKG showing T wave inversions in V4- V5. place on continuous cardiac monitoring. trend cardiac enzymes Q6H, echo. cardio consult. cont coreg/zocor/ARB 2. Group A strep- received azithro in the ER. will switch to amoxicillin 500mg BID x7 days. CXR negative for infiltrate. UA negative 3. DVT on eliquis- last DVT was 3 years ago but was informed he needed lifelong treatment. cont eliquis, 4. Back pain- confirm percocet dose. and continue 5. DVT ppx- eliquis
[2017-06-12] MEDS ORDERED: PT OWN MED DRAWER 7, Y5N ONE (18:44)
[2017-06-12] MEDS ORDERED: traZODone HCL 50 MG TABLET (FP) ONE (20:57)
[2017-06-12] MEDS: APIXABAN 5 MG TABLET PO SCH (21:18)
[2017-06-12] MEDS ORDERED: traZODone HCL 100 MG TABLET (FP) PO SCH (22:00)
[2017-06-12] MEDS: AMOXICILLIN 500 MG CAPSULE (FP) PO SCH (22:03)
--- NOTE | 2017-06-13 06:13 | PN ---
Physical Exam: SUBJECTIVE: Patient seen and examined - chest pain/tightness overnight, CLARKE; resolved in AM OBJECTIVE: Vital Signs Intake & Output 06/10/17 06/11/17 06/12/17 06/13/17 23:59 23:59 23:59 23:59 Intake Total 210 Balance 210 Weight 79.379 kg Period Temp Pulse Resp BP Sys/Rowe Pulse Ox Last 24 Hr 98.4 F-99.5 F 62-88 17-20 100-145/53-88 94-100 GENERAL: Awake, alert, and fully oriented, in no acute distress. HEAD: Normal with no signs of trauma. EYES: Pupils equal, round and reactive to light, extraocular movements intact, sclera anicteric, conjunctiva clear. No lid lag. EARS, NOSE, THROAT: Posterior oropharynx with erythema, trace exudates. Ears normal, nares patent, Moist mucous membranes. NECK: BL cervical lymphadenopathy. Normal range of motion, supple without lymphadenopathy, JVD, or masses. LUNGS: Breath sounds equal, clear to auscultation bilaterally. No wheezes, and no crackles. No accessory muscle use. HEART: Anterior PPM noted on L anterior chest wall. Exquistely tender to palpation. Regular rate and rhythm, normal S1 and S2, 2/6 systolic murmur ABDOMEN: Mild discomfort to palpation in epigastric region. Soft, not distended , normoactive bowel sounds, no guarding, no rebound, no masses. No hepatomegaly or splenomegaly. MUSCULOSKELETAL: Normal range of motion at all joints. No bony deformities or tenderness. No CVA tenderness. UPPER EXTREMITIES: 2+ pulses, warm, well-perfused. No cyanosis. No clubbing. No peripheral edema. 5/5 strength in RUE, 4/5 in LUE. LOWER EXTREMITIES: 2+ pulses, warm, well-perfused. No calf tenderness. No peripheral edema. 5/5 in RLE, 4/5 in LLE. 1+ patellar reflexes BL NEUROLOGICAL: Cranial nerves II-XII intact. Normal speech. Normal gait. PSYCHIATRIC: Cooperative. Good eye contact. Appropriate mood and affect. SKIN: Warm, dry, normal turgor, no rashes or lesions noted, normal capillary refill. Laboratory Results - last 24 hr CBC, BMP CBC, BMP 06/13/17 07:30 06/13/17 07:30 06/12/17 09:18 06/12/17 09:18 06/12/17 06/12/17 06/12/17 09:18 09:18 09:18 WBC 10.7 H D RBC 4.93 Hgb 13.7 Hct 42.1 MCV 85.4 MCH 27.9 MCHC 32.7 RDW 16.8 H Plt Count 151 MPV 9.2 Neutrophils % 84.7 H D Lymphocytes % 8.8 D Monocytes % 5.4 Eosinophils % 0.7 Basophils % 0.4 Sodium 139 Potassium 4.5 Chloride 103 Carbon Dioxide 26 Anion Gap 10 BUN 8 Creatinine 1.0 Creat Clearance w eGFR > 60 Random Glucose 96 D Calcium 9.3 Phosphorus Magnesium Total Bilirubin 0.7 D AST 19 D ALT 21 D Alkaline Phosphatase 78 Creatine Kinase 200 Creatine Kinase Index 1.0 CK-MB (CK-2) 2.053 Troponin I 0.09 H D Total Protein 7.9 Albumin 4.3 TSH Urine Color Ltyellow Urine Appearance Clear Urine pH 5.0 Ur Specific [place] 1.013 Urine Protein Negative Urine Glucose (UA) Negative Urine Ketones Negative Urine Blood Negative Urine Nitrite Negative Urine Bilirubin Negative Urine Urobilinogen Negative Ur Leukocyte Esterase Negative 06/12/17 06/12/17 06/12/17 16:12 16:30 21:45 WBC RBC Hgb Hct MCV MCH MCHC RDW Plt Count MPV Neutrophils % Lymphocytes % Monocytes % Eosinophils % Basophils % Sodium Potassium Chloride Carbon Dioxide Anion Gap BUN Creatinine Creat Clearance w eGFR Random Glucose Calcium Phosphorus 2.4 L Cancelled Magnesium 2.0 Cancelled Total Bilirubin AST ALT Alkaline Phosphatase Creatine Kinase 159 Creatine Kinase Index 0.9 CK-MB (CK-2) 1.498 Troponin I 0.08 H 0.07 H Total Protein Albumin TSH 0.93 Cancelled Urine Color Urine Appearance Urine pH Ur Specific [place] Urine Protein Urine Glucose (UA) Urine Ketones Urine Blood Urine Nitrite Urine Bilirubin Urine Urobilinogen Ur Leukocyte Esterase Active Medications Generic Name Dose Route Start Last Admin Trade Name Freq PRN Reason Stop Dose Admin Acetaminophen 650 mg 06/12/17 16:00 Tylenol - PO Q4H PRN PAIN LEVEL 1-5 Amoxicillin 500 mg 06/12/17 22:00 06/12/17 22:03 Amoxicillin - PO 500 mg BID [facility] Administration Apixaban 5 mg 06/12/17 22:00 06/12/17 21:18 Eliquis - PO 5 mg BID [facility] Administration Apixaban 10 mg 06/13/17 10:00 Eliquis - PO DAILY [facility] Atorvastatin Calcium 20 mg 06/13/17 22:00 Lipitor - PO HS [facility] Carvedilol 12.5 mg 06/13/17 10:00 Coreg - PO DAILY [facility] Gabapentin 300 mg 06/13/17 10:00 Neurontin - PO DAILY [facility] Pantoprazole Sodium 20 mg 06/13/17 10:00 Protonix - PO DAILY [facility] Tamsulosin HCl 0.4 mg 06/13/17 10:00 Flomax - PO DAILY@0830 [facility] Tramadol HCl 50 mg 06/12/17 13:41 06/12/17 21:18 Ultram - PO 50 mg Q4H PRN Administration PAIN LEVEL 6-10 Trazodone HCl 100 mg 06/12/17 22:00 06/12/17 21:18 Desyrel - PO 100 mg HS [facility] Administration Valsartan 80 mg 06/13/17 10:00 Diovan - PO DAILY [facility] Microbiology 06/12/17 09:18 Nasopharyngeal Swab Influenza Types A,B Antigen (SON) - Final 06/12/17 09:18 Nasopharyngeal Swab - Final 06/12/17 09:18 Throat Group A Strep Rapid Antigen - Final 06/12 CXR - No acute pathology 06/12 EKG - Rate 76, QTC 465, RAD, atrial-sensed, vpaced, No ST/TW ASSESSMENT/PLAN: 56 yo man w/ pmh of CVA x2 (most recently 5 yrs, residual L sided hemiparesis), CAD, ID x2 (10 and 4 years ago), AICD PPM (last interrogated 2-3 years ago, [employer]) complicated by LUE DVT, HTN and spinal stenosis, who presented to ED w/ one day of throat pain and new CP this morning. #Strep Pharyngitis - Rapid strep +; CXR negative - trend WBC, fever - Amoxicillin 500mg BID #Atypical chest pain - initial trop 0.09; possible cardiac vs. infection; likely MSK - Trend trops - EKG noted above; serial ekgs - cardiology consulted, recs appreciated - Dr. Edmonds - Will call BS in morning for PPM interrogation - Tele monitoring - f/u echo results - Restart BB, eliquis, plavix, statin - anterior CP to palpation over PPM site #HTN - c/w home diovan - monitor #Back Pain - Home percocet for pain control - Tylenol prn for pain control - Pt requests Ultram; ordered #HLD - c/w home lipitor - f/u lipid panel #FEN PO hydration Monitor lytes Cardiac diet PPX Eliquis PPI Dispo - Tele Obs Plan discussed with attending, Dr. Zelda Blackman, PGY1
[2017-06-13] MEDS: traMADol HCL 50 MG TABLET PO PRN (06:45)
--- NOTE | 2017-06-13 07:35 | MSN ---
Progress Note (SOAP) - Subjective Chief Complaint: Chest pain, sore throat and headache History of Present Illness: Mr. Ruiz is a 56 year old male with past medical history of [place] x2 (most recent incident 4 years ago and then 10 years ago), stroke x2 (most recent one 5 years ago), CAD, AICD pacemaker, LUE DVT and spinal stenosis (lumbar fusion 1 year ago ) who presents with two day history of throat pain and one day history of chest pain and headache. Patient first noticed the throat pain along with chills on the night of 06/11. On the morning of 06/12 patient noticed chest pain with tightness and radiation to right side of the neck and jar. The pain is exacerbated by movement and deep inspiration. The patient took two nitro tablets but it did not alleviate the pain. He states that the pain and tightness if similar to his past MIs. Patient also notes increased musculoskeletal pain all along his left side. Patient denies fevers, cough, nausea or vomiting. He has had no recent travel or sick contacts. Patient denies any trauma to the chest. Patient's last pacemaker interrogation was 2-3 years ago and cardiac stress test was around the same time. ED course was significant for elevated troponin at 0.09. - Current Medications Current Medications: Active Medications Acetaminophen (Tylenol -) 650 mg PO Q4H PRN PRN Reason: PAIN LEVEL 1-5 Amoxicillin (Amoxicillin -) 500 mg PO BID [facility] Last Admin: 06/12/17 22:03 Dose: 500 mg Apixaban (Eliquis -) 5 mg PO BID [facility] Last Admin: 06/12/17 21:18 Dose: 5 mg Apixaban (Eliquis -) 10 mg PO DAILY [facility] Atorvastatin Calcium (Lipitor -) 20 mg PO HS [facility] Carvedilol (Coreg -) 12.5 mg PO DAILY [facility] Gabapentin (Neurontin -) 300 mg PO DAILY [facility] Pantoprazole Sodium (Protonix -) 20 mg PO DAILY [facility] Tamsulosin HCl (Flomax -) 0.4 mg PO DAILY@0830 [facility] Tramadol HCl (Ultram -) 50 mg PO Q4H PRN PRN Reason: PAIN LEVEL 6-10 Last Admin: 06/13/17 06:45 Dose: 50 mg Trazodone HCl (Desyrel -) 100 mg PO [facility] Last Admin: 06/12/17 21:18 Dose: 100 mg Valsartan (Diovan -) 80 mg PO DAILY [facility] - Objective Vital Signs: Vital Signs Temperature 99.5 F 06/13/17 02:00 Pulse Rate 82 06/13/17 02:00 Respiratory Rate 20 06/13/17 02:00 Blood Pressure 100/53 06/13/17 02:00 O2 Sat by Pulse Oximetry (%) 94 L 06/12/17 21:00 Constitutional: Yes: No Distress, Calm HENT: Yes: Atraumatic, Normocephalic Cardiovascular: Yes: Regular Rate and Rhythm Respiratory: Yes: Regular, CTA Bilaterally Gastrointestinal: Yes: Normal Bowel Sounds, Soft Extremities: Yes: WNL Peripheral Pulses WNL: Yes Neurological: Yes: Alert, Oriented, Other (Frontal headache) Psychiatric: Yes: Alert, Oriented Labs Lab Results: CBC, BMP 06/12/17 09:18 06/12/17 09:18 Assessment/Plan 1) Chest pain/rule out ACS * Trops downtrending * Cardiology consulted - Dr. Edmonds * Interrogate AICD Pacemaker - [employer] * Follow up on echo * Restart beta nader, eliquis, plavix and statin * Discharge and follow up as outpatient if pt was not shocked and does not have a arrhythmia per cardiology recommendation 2) Strep Pharyngitis * Rapid strep was positive in ED * Started on oral amoxicillin 500mg BID 3) Hypertension * continue diovan and monitor blood pressure 4) Back Pain * Continue percocet for pain 5) Intractable tension headache * Orthostatic blood pressures * Percocet
[2017-06-13 07:50] LABS: BASO % 0.2 % (0-2.0); EOS % 0.5 % (0-4.5); HEMATOCRIT 40.1 % (35.4-49); LYMPH % 10.4 % (8-40); MCH 27.6 pg (25.7-33.7); MCHC 32.4 g/dl (32.0-35.9); MEAN PLT VOLUME 9.6 fl (7.5-11.1); MONO % 6.5 % (3.8-10.2); NEUT % 82.4 % (42.8-82.8); PLATELET COUNT 131 K/MM3 (134-434); RBC 4.71 M/mm3 (4.00-5.60); RDW 16.8 % (11.9-15.9); WHITE BLOOD COUNT 11.8 K/mm3 (4.0-10.0)
[2017-06-13 08:09] LABS: INR 1.34 (0.82-1.09); PROTHROMBIN TIME (PATIENT) 15.1 SEC (9.98-11.88)
[2017-06-13 08:13] LABS: ALBUMIN 3.8 g/dl (3.4-5.0); ANION GAP 11 (8-16); CHLORIDE 101 mmol/L (98-107); CO2 24 mmol/L (21-32); CREATININE 1.2 mg/dL (0.7-1.3); MAGNESIUM 2.2 mg/dL (1.8-2.4); POTASSIUM 3.8 mmol/L (3.5-5.1); SGOT/AST 23 U/L (15-37); SGPT/ALT 22 U/L (12-78); SODIUM 136 mmol/L (136-145)
[2017-06-13 08:20] LABS: ALK PHOS 83 U/L (45-117); BLOOD UREA NITROGEN 11 mg/dL (7-18); CALCIUM 8.7 mg/dL (8.5-10.1); CHOLESTEROL 176 mg/dL (50-200); GLUCOSE,RANDOM 111 mg/dL (74-106); PHOSPHOROUS 2.9 mg/dL (2.5-4.9); TOT PROT 7.3 g/dl (6.4-8.2); TRIGLYCERIDES 100 mg/dL (35-160)
[2017-06-13 08:50] LABS: HDL CHOLESTEROL 60 mg/dL (40-60); LDL CHOLESTEROL (ONLY SJRH) 101 mg/dL (5-100)
[2017-06-13] MEDS ORDERED: TAMSULOSIN HCL 0.4 MG CAP.ER.24H (FP) PO SCH (10:00)
[2017-06-13] MEDS ORDERED: PANTOPRAZOLE 20 MG TABLET (FP) PO SCH (10:00)
[2017-06-13] MEDS ORDERED: GABAPENTIN 300 MG CAPSULE (FP) PO SCH (10:00)
[2017-06-13] MEDS ORDERED: CARVEDILOL 12.5 MG TABLET (FP) PO SCH (10:00)
[2017-06-13] MEDS ORDERED: APIXABAN 5 MG TABLET PO SCH (10:00)
[2017-06-13] MEDS ORDERED: VALSARTAN 80 MG TABLET (UD) PO SCH (10:00)
[2017-06-13] MEDS: APIXABAN 5 MG TABLET PO SCH (10:22)
[2017-06-13] MEDS: AMOXICILLIN 500 MG CAPSULE (FP) PO SCH (10:29)
--- NOTE | 2017-06-13 13:04 | CON.CARD ---
Consult Consult Specialty:: Cardiology Referred by:: Hospitalist Reason for Consultation:: Chest pain, possible ICD shock - History of Present Illness Chief Complaint: Strep throat, chest pain History of Present Illness: Pt follows with fabrication and assembly supervisor Dr. Russ at [facility], last seen by our group when admitted here in 2013. 56 year old man with a history of HTN, HLD, bradycardia s/p PPM 1998, reported "IA" 2011 at time when PPM reached EOL and "HR dropped to 30bpm" admitted to [facility] where he was found to have severe LV systolic dysfunction and an ICD was eventually implanted after a difficult PPM lead extraction. He then was diagnosed with a DVT in the LUE up to the LIJ which was tx with fragmin injections at home for some time followed by oral AC. In addition pt had a CVA approximately 2012 with residual left sided deficits.. Admitted here 08/2013 with an episode of palpitations, severe head throbbing, followed by chest discomfort. He also states that he thinks he had a cardiac cath in 1998 at [facility] which he believes was normal. 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 Now admitted with strep throat and substernal chest pain, concern raised for possible ICD shock. Pt seen and examined today. He states his chest pain has completely resolved. He states he has been shocked by his ICD in the past and was well aware of that episode, his current symptoms due not feel the same. Denies palpitations. No lightheadedness, dizziness, SOB. No PND, orthopnea, LE edema. 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 Cardio/Vascular: Yes: CAD, CHF, HTN, IA ENT: Yes: Sinusitis - Past Surgical History Past Surgical History: Yes: AICD - Alcohol/Substance Use Hx Alcohol Use: Yes (none x 20 years) - Smoking History Smoking history: Former smoker Have you smoked in the past 12 months: No Aproximately how many cigarettes per day: 0 If you are a former smoker, when did you quit?: 20 YEARS AGO - Social History Usual Living Arrangement: With Significant Other ADL: Independent History of Recent Travel: No Home Medications - Allergies Allergies/Adverse Reactions: Allergies Allergy/AdvReac Type Severity Reaction Status Date / Time diphenhydramine HCl Allergy Intermediate hives/blist Verified 06/12/17 08:41 [From Benadryl] ers. cyclobenzaprine HCl AdvReac Intermediate drowsy, Verified 06/12/17 08:41 [From Flexeril] sedation - Home Medications Home Medications: Ambulatory Orders Apixaban [Eliquis] 10 mg PO BID 06/12/17 Carvedilol 12.5 mg PO DAILY 06/12/17 Gabapentin 300 mg PO TID 06/12/17 Omeprazole 40 mg PO DAILY 06/12/17 Oxycodone HCl/Acetaminophen [Percocet 10-325 mg Tablet] 1 each PO PRN 06/12/17 Simvastatin 20 mg PO HS 06/12/17 Tamsulosin HCl [Flomax] 0.4 mg PO DAILY 06/12/17 Trazodone HCl 100 mg PO HS 06/12/17 Valsartan [Diovan] 80 mg PO DAILY 06/12/17 Family Disease History - Family Disease History Family Disease History: Heart Disease: Grandparent (htn, ), CA: Mother ( cancer, ), Sister () Review of Systems - Review of Systems Constitutional: denies: No Symptoms, Chills, Diaphoresis, Fever, Lethargy, Loss of Appetite, Malaise, Night Sweats, Unintentional Wgt. Loss, Weakness, Other Eyes: denies: No Symptoms, Blind Spots, Blurred Vision, Double Vision, Eye Pain , Floaters, Photophobia, Recent Change in Vision, Other HENT: reports: Throat Pain. denies: No Symptoms, Difficult Swallowing, Ear Discharge, Ear Pain, Epistaxis, Gingival Bleeding, Hearing Loss, Mouth Swelling , Nasal Congestion, Ocular Prosthesis, Toothache, Ringing in Ears, Other Neck: denies: No Symptoms, Decreased ROM, Lumps, Pain on Movement, Stiffness, Swollen Glands, Tenderness, Other Cardiovascular: reports: Chest Pain. denies: No Symptoms, Edema, Palpitations, Shortness of Breath, Other Respiratory: denies: No Symptoms, Cough, Exercise Intolerance, Hemoptysis, Orthopnea, PND, Snoring, SOB, SOB on Exertion, Wheezing, Other Gastrointestinal: denies: No Symptoms, Abdominal Pain, Bloating, Constipation, Diarrhea, Dysphagia, Indigestion, Melena, Nausea, Rectal Bleeding, Vomiting, Vomiting Blood, Other Genitourinary: denies: No Symptoms, Burning, Discharge, Dysuria, Flank Pain, Frequency, Hematuria, Incontinence, Lesions, Menses, Pain, Testicular Mass, Testicular Pain, Testicular Swelling, Urgency, Vaginal Bleeding, Other Musculoskeletal: denies: No Symptoms, Back Pain, Crepitus, Decreased ROM, Extremity Pain, Joint Pain, Joint Swelling, Muscle Pain, Muscle Cramps, Muscle Weakness, Other Integumentary: denies: No Symptoms, Blister, Bruising, Change in Color, Eczema, Erythema, Incision, Lesions, Lump, Pallor, Pruritis, Rash, Wound, Other Neurological: denies: No Symptoms, Change in LOC, Change in Speech, Confusion, Dizziness, Headache, Incoordination, Numbness, Parasthesia, Pre-Existing Deficit , Seizure, Syncope, Tremors, Unsteady Gait, Weakness, Other Endocrine: denies: No Symptoms, Excessive Sweating, Flushing, Increased Hunger, Increased Thirst, Intolerance to Cold, Intolerance to Heat, Unexplained Weight Gain, Unexplained Weight Loss, Other Hematology/Lymphatic: denies: No Symptoms, Easily Bruised, Excessive Bleeding, Swollen Glands, Other Psychiatric: denies: No Symptoms, Altered Sleep Pattern, Anxiety, Depression, Hallucinations, Panic, Paranoia, Suicidal, Other - Risk Factors Known Risk Factors: Yes: Hypercholesterolemia, Hypertension, Prior IA /Emb Stroke Vital Signs: Vital Signs Temperature 98.3 F 06/13/17 06:00 Pulse Rate 70 06/13/17 06:00 Respiratory Rate 16 06/13/17 06:00 Blood Pressure 101/55 06/13/17 06:00 O2 Sat by Pulse Oximetry (%) 94 L 06/12/17 21:00 Constitutional: Yes: Well Nourished, No Distress, Calm Eyes: Yes: WNL, Conjunctiva Clear, EOM Intact, PERRL HENT: Yes: WNL, Atraumatic, Normocephalic, Pharyngeal Erythema Neck: Yes: WNL, Supple, Trachea Midline Respiratory: Yes: WNL, Regular, CTA Bilaterally. No: Rales, Rhonchi, Wheezes Gastrointestinal: Yes: WNL, Normal Bowel Sounds, Soft. No: Distention, Tenderness Renal/: Yes: WNL Cardiovascular: Yes: Regular Rate and Rhythm. No: Bradycardia, Tachycardia, Pulse Irregular, Gallop, Rub, Varicosities JVD: No Carotid Bruit: No PMI: Non-Displaced Heart Sounds: Yes: S1, S2. No: Split S2, S3, S4, Clicks, Gallop, Rub, Bruit Murmur: No: Systolic Murmur, Diastolic Murmur Musculoskeletal: Yes: Muscle Weakness Extremities: Yes: WNL Edema: No Peripheral Pulses WNL: Yes Peripheral Pulses: 2+ Left Doralis Pedis, 2+ Right Dorsalis Pedis Neurological: Yes: Alert, Oriented Psychiatric: Yes: Alert, Oriented - Other Data Labs, Other Data: CBC, BMP 06/13/17 07:30 06/13/17 07:30 INR, PTT INR 1.34 (0.82-1.09) H 06/13/17 07:30 Troponin, BNP 06/12/17 06/12/17 16:12 21:45 Troponin I 0.08 H 0.07 H Troponin, BNP 06/12/17 06/12/17 16:12 21:45 Troponin I 0.08 H 0.07 H EKG-NSR Vpaced 81bpm Echo: Report Reviewed Imaging - Results Chest X-ray: Report Reviewed, Image Reviewed EKG: Report Reviewed, Image Reviewed Other: Report Reviewed, Image Reviewed (tele-NSR, Vpaced, PVCs) Assessment/Plan Pt follows with fabrication and assembly supervisor Dr. Russ at [facility], last seen by our group when admitted here in 2013. 56 year old man with a history of HTN, HLD, bradycardia s/p PPM 1998, reported "IA" 2011 at time when PPM reached EOL and "HR dropped to 30bpm" admitted to [facility] where he was found to have severe LV systolic dysfunction and an ICD was eventually implanted after a difficult PPM lead extraction. He then was diagnosed with a DVT in the LUE up to the LIJ which was tx with fragmin injections at home for some time followed by oral AC. In addition pt had a CVA approximately 2012 with residual left sided deficits.. Admitted here 08/2013 with an episode of palpitations, severe head throbbing, followed by chest discomfort. He also states that he thinks he had a cardiac cath in 1998 at [facility] which he believes was normal. 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 Now admitted with strep throat and substernal chest pain, concern raised for possible ICD shock. Pt seen and examined today. He states his chest pain has completely resolved. He states he has been shocked by his ICD in the past and was well aware of that episode, his current symptoms due not feel the same. Denies palpitations. No lightheadedness, dizziness, SOB. No PND, orthopnea, LE edema. Chest pain-atypical, resolved -troponin minimally elevated but did not trend up and with normal CK level -pt states he has been told his troponin is always minimally elevated -last cardiac cath approx 2013, as per chart showed mild non-obs CAD, believe this was done at [facility] -Echo here showed normal LV function -Need to interrogate his ICD (Alfie Sci) to see if any shocks or significant arrhythmias -If no shocks or arrhythmias pt can likely be discharged from a cardiac standpoint with a plan for close outpatient f/up with his fabrication and assembly supervisor Dr. Russ within 1 week -if shocked or VT/VF will need an ischemic work up and can start with nuclear stress test tomorrow Cardiomyopathy-presumed NICM given prior cath showing nonobs CAD -s/p BIV ICD -euvolemic -does not require diuresis at this time -cont coreg and diovan HTN-controlled -cont home medications DVT LUE -on eliquis, confirm dosage
--- NOTE | 2017-06-13 13:20 | PN ---
Teaching Attending Note Name of Resident: Jose Blackman ATTENDING PHYSICIAN STATEMENT I saw and evaluated the patient. I reviewed the resident's note and discussed the case with the resident. I agree with the resident's findings and plan as documented. SUBJECTIVE:sates CP has resolved. but feeling dizzy this AM when he got out of bed. continues to have CLARKE. deneis CP, SOB, fever, chills, N/V/C/D, palpitations OBJECTIVE: Last Vital Signs Temp Pulse Resp BP Pulse Ox 98.3 F 70 16 101/55 94 L 06/13/17 06:00 06/13/17 06:00 06/13/17 06:00 06/13/17 06:00 06/12/17 21:00 General NAD HEENT +erythematous pharynx. tender to palpation CV S1 S2 RRR. no chest wall tenderness Lungs CTA B/L no wheezing/rales/rhonchi ASSESSMENT AND PLAN: 56 yo M with PMH of CVA (8 yrs ago and 5 yrs ago w residual LLE, LUE weakness) , CAD s/p [place] (10 yrs ago, 4 yrs ago), Medtronic AICD/dual pacer chamber, history if arrythmia, LUE DVT provoked by AICD procedure, on eliqis, HTN, spinal stenosis s/p laminectomy last year presenting with throat and chest pain 1. CP-resolved. concern pt may have had shock. no events on monitor. flat trend of troponins. awaiting ICD interrogation and echo report. need to determine if has iscehmic cardiomyopathy. if negative can f/u with own fire safety manager. spoke with cardio here. 2. Group A strep-cont amox day 2. 3. DVT on eliquis- last DVT was 3 years ago but was informed he needed lifelong treatment. cont eliquis, 4. Back pain- confirm percocet dose. and continue 5. DVT ppx- eliquis
[2017-06-13] MEDS ORDERED: oxyCODONE HCL 5 MG TABLET PO ONE (14:15)
[2017-06-13] MEDS ORDERED: ACETAMINOPHEN 325 MG TABLET (FP) PO ONE (14:15)
[2017-06-13] MEDS ORDERED: SODIUM CHLORIDE 1,000 ML IV STA (15:24)
--- NOTE | 2017-06-13 17:19 | DS ---
Physical Exam: SUBJECTIVE: Patient seen and examined by me this AM - No major overnight events; Complaining of bandlike CLARKE this AM starting in the AM; endorses lightheadness this morning when walking to bathroom around 4AM; pt CP resolved; Denies sob, ab pain, back pain, f/c/n/v/d, neuro symptoms; - PPM interrogated by nursing, no events noted; orthostatics performed, 90/45 supine, 105/68 sitting, 107/60 standing - Pt ordered for bolus of 1L NS; lightheadness improved after bolus, repeat BP 117/68; pt CLARKE improved with percocet in PM; discharged home this PM OBJECTIVE: Vital Signs Intake & Output 06/10/17 06/11/17 06/12/17 06/13/17 23:59 23:59 23:59 23:59 Intake Total 210 340 Balance 210 340 Weight 79.379 kg Period Temp Pulse Resp BP Sys/Rowe Pulse Ox Last 24 Hr 97.8 F-99.5 F 70-88 16-20 100-126/53-76 94-99 PHYSICAL EXAM ENERAL: Awake, alert, and fully oriented, A&Ox3, mild distress HEAD: Normal with no signs of trauma. EYES: Pupils equal, round and reactive to light, extraocular movements intact, sclera anicteric, conjunctiva clear. No lid lag. EARS, NOSE, THROAT: Posterior oropharynx still with erythema. Ears normal, nares patent, Moist mucous membranes. NECK: BL cervical lymphadenopathy, tender to palpation. Normal range of motion, supple without lymphadenopathy, JVD, or masses. LUNGS: Breath sounds equal, clear to auscultation bilaterally. No wheezes, and no crackles. No accessory muscle use. HEART: Anterior PPM noted on L anterior chest wall. Nontender to palpation. Regular rate and rhythm, normal S1 and S2, 2/6 systolic murmur ABDOMEN: Soft, not distended, normoactive bowel sounds, no guarding, no rebound , no masses. No hepatomegaly or splenomegaly. MUSCULOSKELETAL: Normal range of motion at all joints. No bony deformities or tenderness. No CVA tenderness. UPPER EXTREMITIES: 2+ pulses, warm, well-perfused. No cyanosis. No clubbing. No peripheral edema. 5/5 strength in RUE, 4/5 in LUE. LOWER EXTREMITIES: 2+ pulses, warm, well-perfused. No calf tenderness. No peripheral edema. 5/5 in RLE, 4/5 in LLE. 1+ patellar reflexes BL NEUROLOGICAL: Cranial nerves II-XII intact. Normal speech. Normal gait. PSYCHIATRIC: Cooperative. Good eye contact. Appropriate mood and affect. SKIN: Warm, dry, normal turgor, no rashes or lesions noted, normal capillary refill. LABS Laboratory Results - last 24 hr CBC, BMP 06/13/17 07:30 06/13/17 07:30 06/12/17 06/12/17 06/13/17 16:12 21:45 07:30 WBC 11.8 H RBC 4.71 Hgb 13.0 Hct 40.1 MCV 85.0 MCH 27.6 MCHC 32.4 RDW 16.8 H Plt Count 131 L MPV 9.6 Neutrophils % 82.4 Lymphocytes % 10.4 Monocytes % 6.5 Eosinophils % 0.5 Basophils % 0.2 PT with INR INR Sodium Potassium Chloride Carbon Dioxide Anion Gap BUN Creatinine Creat Clearance w eGFR Random Glucose Calcium Phosphorus Magnesium Total Bilirubin AST ALT Alkaline Phosphatase Creatine Kinase Index 0.9 CK-MB (CK-2) 1.498 Troponin I 0.07 H Total Protein Albumin Triglycerides Cholesterol Total LDL Cholesterol HDL Cholesterol TSH 0.93 06/13/17 06/13/17 07:30 07:30 WBC RBC Hgb Hct MCV MCH MCHC RDW Plt Count MPV Neutrophils % Lymphocytes % Monocytes % Eosinophils % Basophils % PT with INR 15.10 H INR 1.34 H Sodium 136 Potassium 3.8 Chloride 101 Carbon Dioxide 24 Anion Gap 11 BUN 11 D Creatinine 1.2 Creat Clearance w eGFR > 60 Random Glucose 111 H Calcium 8.7 Phosphorus 2.9 D Magnesium 2.2 Total Bilirubin 1.0 D AST 23 D ALT 22 Alkaline Phosphatase 83 Creatine Kinase Index CK-MB (CK-2) Troponin I Total Protein 7.3 Albumin 3.8 Triglycerides 100 Cholesterol 176 Total LDL Cholesterol 101 H HDL Cholesterol 60 TSH Microbiology 06/12/17 09:18 Nasopharyngeal Swab Influenza Types A,B Antigen (SON) - Final 06/12/17 09:18 Nasopharyngeal Swab - Final 06/12/17 09:18 Throat Group A Strep Rapid Antigen - Final 06/12 CXR - No acute pathology 06/12 EKG - Rate 76, QTC 465, RAD, atrial-sensed, vpaced, No ST/TW 06/13 ECHO - Normal RV/LV size and function; EF 54%; Mild TR; trace MR Consults: Cardiology - Seen by Dr. Edmonds HOSPITAL COURSE: Prehospital: 56 yo man w/ pmh of CVA x2 (most recently 5 yrs, residual L sided hemiparesis), CAD, WI x2 (10 and 4 years ago), AICD PPM (no prior interrogation, [employer] complicated by LUE DVT, HTN and spinal stenosis, who presented to ED w/ one day of throat pain and new CP this morning. Pt with extensive cardiac hx, independent in all ADLs. Pt states he noted throat pain, pain with swallowing, chills last night; denies fevers, cough, SOB, diarrhea, dysuria, myalgias. This AM, noted 6/10 substernal chest pain and tightness with radiation to R neck and jaw, exacerbated by arm movement and deep inspiration. Took 2 nitro tabs with no resolution. States the sensation was similar to prior WI 4 years ago. No CLARKE, vision changes, dizziness, LE swelling, ab pain, LE edema. No sick contacts, travel, recent exercise, trauma to chest wall. Endorse sob and chest tightness this AM as well, in addition to pain with deep inspiration, no palpitations. Prior Echo and stress test 2 years ago, showed poor cardiac function per patient. Pt follows w/ Dr. Russ from [facility], states he was noted to have elevated trops a few months ago. Hospital: In ED, pt received ASA and EKG was noted as above. Labs notable for no wbc elevation and trop of 0.09. Repeat trop 0.08. CXR with no pathology. UA sent and was negative. Cardiology was consulted. Rapid strep + in ed. Pt started on PO amoxicillin 500mg BID. Echo ordered, results listed above. Pt admitted for r/ o acs as obs tele. In AM, pt with resolution of chest pain, however complaining of dizziness and CLARKE. Ordered for percocet and orthostatics, which were negative. However, BP was noted to be in 90s-100s systolic overnight and in morning. Pt PPM interrogate, no events noted. Seen by Dr. edmonds, who recommended interrogation, outpt stress test, further clarification of cardiac hx and states elevated trops not likely acute WI. Final trop in AM 0.07. Pt bolused one liter, with improvement in BP and dizziness, resolution of CLARKE w/ percocet. Pt discharged home with outpt cardiology f/u w/ Dr. Russ for stress test and instructed to hold diovan for 48 hours until BP normalized and dizziness symptoms completely abated. Pt w/ no further CP on discharge. Date of Admission:06/12/17 Date of Discharge: 06/13/17 Pt medically stable and cleared for discharge, with outpt f/u with manufacturing test technician Dr. Russ and PCP Dr. Vu. Pt recommended to undergo cardiac stress test. Minutes to complete discharge: 35 Discharge Summary Reason For Visit: CHEST PAIN Current Active Problems Atypical chest pain (Acute) Chest pain (Acute) Strep pharyngitis (Acute) Condition: Guarded - Instructions Diet, Activity, Other Instructions: During your stay at [facility], you were treated for chest pain and strep throat. You were prescribed Amoxicillin for your strep throat and you were evaluated for a possible cardiac cause of your chest. All cardiac tests up until this point have been negative. Medications: The following medications were added to your regimen. Please take them as described below: Amoxicillin 500mg, one pill by mouth twice a day, tonight one tablet and continue for the next eight days (end 06/21) for your strep throat. Please stop taking your diovan for the next two days in order to let your blood pressure recover. Please continue to take all other home medications as previously directed. Follow-ups: Please follow-up with your primary care physician, Dr. Vu, in one week for further management of your medications. Please call their office to schedule an appointment. Please follow-up with your cardiology, Dr. Russ, in one week for further management of your cardiac medication. His contact number has been provided in this packet. Please call his office to make an appointment. You may require further testing. During your stay, your pacemaker was interrogated and no abnormalities were identified. Diet/exercise: Please adhere to a low fat, low salt diet. You are cleared for moderate exercise as tolerated. Please return to the hospital if you experience any of the following symptoms: - Worsening throat pain, inability to swallow - Persistent chest pain radiating to you back, arm, jaw or neck - Persistent fevers/chills - Worsening chest pain, shortness of breath - Any new or concerning symptoms Referrals: Jovan Russ [Non Staff, Medical] - 1 Week Blanquita Vu MD [Primary Care Provider] - 1 Week Disposition: HOME - Home Medications Comprehensive Discharge Medication List: Ambulatory Orders Apixaban [Eliquis] 10 mg PO BID 06/12/17 Carvedilol 12.5 mg PO DAILY 06/12/17 Gabapentin 300 mg PO TID 06/12/17 Omeprazole 40 mg PO DAILY 06/12/17 Oxycodone HCl/Acetaminophen [Percocet 10-325 mg Tablet] 1 each PO PRN 06/12/17 Simvastatin 20 mg PO HS 06/12/17 Tamsulosin HCl [Flomax -] 0.4 mg PO DAILY 06/12/17 Trazodone HCl 100 mg PO HS 06/12/17 Valsartan [Diovan] 80 mg PO DAILY 06/12/17 Amoxicillin - [Amoxicillin 500mg Capsule -] 500 mg PO BID #17 capsule 06/13/17 This patient is new to me today: No Emergency Visit: Yes ED Registration Date: 06/12/17 Care time: The patient presented to the Emergency Department on the above date and was hospitalized for further evaluation of their emergent condition. Critical Care patient: No - Discharge Referral Referred to [facility] No
[2017-06-13 18:42] VITALS: BP 117/68; PULSE 62; TEMP 97.4
[2017-06-13] MEDS ORDERED: ATORVASTATIN CA 20 MG TABLET (FP) PO SCH (22:00)
--- NOTE | 2017-06-14 09:57 | EKG ---
Test Reason : Blood Pressure : / mmHG Vent. Rate : 078 BPM Atrial Rate : 078 BPM P-R Int : 160 ms QRS Dur : 126 ms QT Int : 416 ms P-R-T Axes : 000 239 113 degrees QTc Int : 474 ms POOR DATA QUALITY, INTERPRETATION MAY BE ADVERSELY AFFECTED Atrial-sensed ventricular-paced rhythm ABNORMAL ECG WHEN COMPARED WITH ECG OF 12-JUN-2017 08:55, VENT. RATE HAS INCREASED BY 2 BPM Confirmed by THEODORE RETANA MD ([id number]) on 06/14/2017 9:57:01 AM Referred By: Confirmed By:THEODORE RETANA MD
== END 2017-06-13 19:21 | disposition home or self-care (01) ==
LOC: JER 08:36 → JERBED 13:08 → UNDOADMOB 13:08 → INTOOBSV 13:08 → J4W 17:16 → JERBED 17:30 → J4W 17:30
PROVIDERS: ADMIT Internal Medicine; ATTEND Internal Medicine
DX: J02.0 Streptococcal pharyngitis (principal); R07.89 Other chest pain; I10 Essential (primary) hypertension; I25.10 Atherosclerotic heart disease of native coronary artery without angina pectoris; I25.2 Old myocardial infarction; I50.9 Heart failure, unspecified; I42.9 Cardiomyopathy, unspecified; M48.00 Spinal stenosis, site unspecified; E78.5 Hyperlipidemia, unspecified; I69.354 Hemiplegia and hemiparesis following cerebral infarction affecting left non-dominant side; I82.409 Acute embolism and thrombosis of unspecified deep veins of unspecified lower extremity; M54.9 Dorsalgia, unspecified; Z79.01 Long term (current) use of anticoagulants; Z95.810 Presence of automatic (implantable) cardiac defibrillator; Z87.891 Personal history of nicotine dependence; Z88.8 Allergy status to other drugs, medicaments and biological substances; Z98.1 Arthrodesis status
CPT/HCPCS: 36415; 71046-TC-FY; 80053; 80061; 81003; 82550; 82553; 83721; 83735; 84100; 84443; 84484; 85025; 85610; 87070; 87430; 87804; 93005; 93010; 93306-TC; 99285-25; G0378

== ENCOUNTER 2017-11-13 12:33 | Observation (INO) | payer OTHER ==
[2017-11-13 12:46] VITALS: BMI 23.7
--- NOTE | 2017-11-13 13:18 | PDOC ---
History of Present Illness - General Chief Complaint: Chest Pain Stated Complaint: BACK PAIN CHEST PAIN/PACEMAKER Time Seen by Provider: 11/13/17 13:07 History Source: Patient - History of Present Illness Initial Comments: 11/13/17 13:22 57 year old male with a PMH of CHF, CAD (s/p NV, cardiac cath and PM placement) , CVA (s/p residual L sided weakness), spinal stenosis (s/p laminectomy), DVT ( on Eliquis) presents to the ED c/o acute onset of chest pain. Patient states he was sitting today around 10:30 a.m. speaking to his [facility] when he felt acute onset of chest pain. Pain is across his anterior chest wall, sharp, 10/10, constant and non-pleuritic. No associated associated dyspnea, lightheadedness, palpitations, nausea, diaphoresis. States similar episode of chest pain 3 months previous which resolved with SL nitro however patient has run out of his nitro pills. Has recently seen a cutting supervisor @ [employer] [place] but cannot recall the name. ROS positive for lower back pain which is chronic. Patient denies abdominal pain, diarrhea/constipation, nausea/vomiting, dysuria/ hematuria, recent travel or sick contacts. Allergy: Benadryl, Cyclobenzaprine Surgical: Cardiac Cath, PM placement Social: denies toxic habits PMD: Dr. Jovan Kramer MD Software Applications Architect: Dr. Lindsey Germain Past History - Past Medical History Allergies/Adverse Reactions: Allergies Allergy/AdvReac Type Severity Reaction Status Date / Time diphenhydramine HCl Allergy Intermediate hives/blist Verified 06/12/17 08:41 [From Benadryl] ers. cyclobenzaprine HCl AdvReac Intermediate drowsy, Verified 06/12/17 08:41 [From Flexeril] sedation Home Medications: Ambulatory Orders Apixaban [Eliquis] 10 mg PO BID 06/12/17 Carvedilol 12.5 mg PO DAILY 06/12/17 Gabapentin 300 mg PO TID 06/12/17 Omeprazole 40 mg PO DAILY 06/12/17 Simvastatin 20 mg PO HS 06/12/17 Tamsulosin HCl [Flomax -] 0.4 mg PO DAILY 06/12/17 traZODone HCL [Trazodone HCl] 100 mg PO HS 06/12/17 Ergocalciferol [Vitamin D2] 50,000 unit PO Q7D 08/08/17 Acetaminophen 325 mg PO TID PRN #90 tablet 09/06/17 Diclofenac Sodium [Voltaren] 2 gm TP TID PRN #3 tube 09/06/17 Oxycodone HCl/Acetaminophen [Percocet 10-325 mg Tablet] 1 each PO TID PRN Asthma: No Cardiac Disorders: Yes (defibrillator/ PACEMAKER, hx NV) CVA: Yes (2013 / mild weakness left side ) COPD: No Dementia: No Diabetes: No GI Disorders: No Disorders: No HTN: Yes Hypercholesterolemia: Yes Liver Disease: No Seizures: No Thyroid Disease: No - Surgical History Abdominal Surgery: Yes (hernia repair 1983) Cardiac Surgery: Yes (PACEMAKER/DEFIB: 2011) Orthopedic Surgery: Yes (05/29/16 lumbar fusion) - Immunization History Immunization Up to Date: Yes - Suicide/Smoking/Psychosocial Hx Smoking Status: No Smoking History: Never smoked Have you smoked in the past 12 months: No Number of Cigarettes Smoked Daily: 0 If you are a former smoker, when did you quit?: 20 YEARS AGO Information on smoking cessation initiated: No 'Breaking Loose' booklet given: 09/17/13 Hx Alcohol Use: No Drug/Substance Use Hx: No Substance Use Type: Alcohol, Cocaine Hx Substance Use Treatment: Yes (detox, rehab, 12 steps) Review of Systems - Review of Systems Constitutional: No: Chills, Fever HEENTM: No: Blurred Vision, Double Vision Respiratory: No: Cough, Shortness of Breath, SOB with Exertion, SOB at Rest, Hemoptysis Cardiac (ROS): Yes: Chest Pain. No: Lightheadedness, Palpitations, Syncope ABD/GI: No: Constipated, Diarrhea, Nausea, Vomiting : No: Dysuria, Hematuria Musculoskeletal: Yes: Back Pain *Physical Exam - Vital Signs Last Vital Signs Temp Pulse Resp BP Pulse Ox 98.0 F 57 L 20 129/79 99 11/13/17 12:43 11/13/17 12:43 11/13/17 12:43 11/13/17 12:43 11/13/17 12:43 - Physical Exam General Appearance: Yes: Nourished, Appropriately Dressed HEENT: positive: Normal Voice, Hearing Grossly Normal Neck: positive: Trachea midline, Supple Respiratory/Chest: positive: Lungs Clear, Normal Breath Sounds. negative: Respiratory Distress, Accessory Muscle Use, Crackles, Rales, Rhonchi, Stridor, Wheezing Cardiovascular: positive: S1, S2, Other. negative: JVD Vascular Pulses: Dorsalis-Pedis (R): 2+, Doralis-Pedis (L): 2+ Gastrointestinal/Abdominal: positive: Normal Bowel Sounds, Soft Musculoskeletal: negative: CVA Tenderness (R), CVA Tenderness (L) Extremity: positive: Normal Capillary Refill, Normal Inspection Integumentary: positive: Normal Color, Dry, Warm Neurologic: positive: Fully Oriented, Alert ED Treatment Course - LABORATORY CBC & Chemistry Diagram: 11/13/17 13:21 11/13/17 13:21 Medical Decision Making - Medical Decision Making 11/13/17 13:37 Patient 57 year old male presents with chest pain. VS: HR 57, BP 138/100, SpO2 100%; anterior chest wall tenderness on PE DDx: r/o ACS, PM dysfunction, PNA, muskoskeletal, costochondritis W/u: CBC, CMP, EKG, CXR Troponin x1, ECG shows HR 62, normal intervals, no deviations, no MARGO/STD/TWI; pacer spike before QRS complex 11/13/17 14:53 S/p Morphine and SL nitro Repeat BP 131/94 CBC unremarkable, Troponin pending 11/13/17 15:11 Troponin (-) x1 11/13/17 16:23 Pacemaker interrogation normal 11/13/17 17:19 Repeat Troponin pending Persistently bradycardic 40's-50's; patient will likely require further cardiac evaluation. Case d/w patient, amenable to admission. 11/13/17 17:53 Case d/w Dr. Nj. Accepts for OBS Tele. 11/13/17 20:42 Repeat Troponin (-); patient resting comfortably, remains bradycardic. BALANCE SCREWHEAD POLISHER @ bedside. *DC/Admit/Observation/Transfer Diagnosis at time of Disposition: Chest pain - Referrals - Patient Instructions - Post Discharge Activity
[2017-11-13] MEDS ORDERED: NITROGLYCERIN SUBLINGUAL 1/150 0.4 MG TAB SL ONE (13:19)
[2017-11-13] MEDS ORDERED: morphine CARPU-JECT 4 MG/1 ML DISP.SYRIN IVPUSH ONE ×3 (13:21→21:08)
[2017-11-13] MEDS ORDERED: morphine SULFATE 4 MG/ML VIAL ONE ×3 (13:25→21:23)
[2017-11-13] MEDS ORDERED: NITROGLYCERIN SUBLINGUAL 1/150 0.4 MG TAB ONE (13:26)
[2017-11-13 14:03] LABS: BASO % 0.5 % (0-2.0); EOS % 3.4 % (0-4.5); HEMATOCRIT 39.2 % (35.4-49); HEMOGLOBIN 13.1 GM/dL (11.7-16.9); LYMPH % 31.1 % (8-40); MCH 28.5 pg (25.7-33.7); MCHC 33.4 g/dl (32.0-35.9); MEAN CELL VOLUME 85.3 fl (80-96); MEAN PLT VOLUME 9.5 fl (7.5-11.1); MONO % 5.1 % (3.8-10.2); NEUT % 59.9 % (42.8-82.8); PLATELET COUNT 133 K/MM3 (134-434); RDW 14.2 % (11.9-15.9); WHITE BLOOD COUNT 4.8 K/mm3 (4.0-10.0)
--- NOTE | 2017-11-13 14:14 | PDOC ---
Attending Attestation - Resident Resident Name: Teresita Hatch - ED Attending Attestation I have performed the following: I have examined & evaluated the patient, The case was reviewed & discussed with the resident, I agree w/resident's findings & plan, Exceptions are as noted - HPI HPI: 11/13/17 14:13 The patient is a 57 year old male with a significant PMH of cva left sided residual weakness, cad sp cath, dvt on eliquis, spinal stenosis presenting with chest pain and back pain since 10:30AM today. The patient states he ocassionally has chest and back pain and takes percocets and nitro for it, but ran out of it. Patient reports he was lifting his granddaughter prior to the onset of his acute chest and back pain. Patient describes his chest and back pain as sharp and constant. Pt ntoes this pain is similar to episodes he has had in the past (last one was 2 days ago) that usually resolves with his medications. Patient denies any recent travel or sick contact. Pt notes he had a neg stress test 3 months ago with his tractor trailer technician The patient denies diaphoresis, palpitations, and headache. Denies fever, chills, nausea, vomit, diarrhea and constipation. Denies dysuria, frequency, urgency and hematuria. Allergy: Benadryl, Cyclobenzaprine Polystyrene Bead Molder: Dr. Field [phone] Surgical: Cardiac Cath, PM placement Social: denies toxic habits PMD: Dr. Jovan Kramer MD. GENERAL: The patient is awake, alert, and fully oriented, Nontoxic - in no acute distress. HEAD: Normocephalic, atraumatic. EYES: extraocular movements intact, sclera anicteric, conjunctiva clear. ENT: Normal voice, Moist mucous membranes. NECK: Normal range of motion, supple LUNGS: Breath sounds equal, clear to auscultation bilaterally. No wheezes, no rhonchi, no rales. HEART: Regular rate and rhythm, normal S1 and S2 without murmur, rub or gallop. ABDOMEN: Soft, nontender No guarding, no rebound. No CVA tenderness BACK: mild reproducible tenderness in the lumbar back over his surgical site EXTREMITIES: Normal range of motion, no edema. pulses symetric NEUROLOGICAL: No facial assymetry, Normal speech, PSYCH: Normal mood, normal affect. SKIN: Warm, Dry, normal turgor, ddx: chronic pain due to spinal stenosis, consider acs will ck trops, cxr will give pt pain meds will reassess - Medical Decision Making 11/13/17 16:23 trop neg x 1 will discuss with his cardioligist regarding disposition Heart Score/ECG Review - ECG Impressions Comment:: 11/13/17 15:48 Twelve-lead EKG was performed and reviewed by me. paced ekg rate of [address] changes suggestive of acute ischemia
[2017-11-13 14:44] LABS: ALBUMIN 3.8 g/dl (3.4-5.0); ANION GAP 9 MMOL/L (8-16); BLOOD UREA NITROGEN 9 mg/dL (7-18); CALCIUM 8.5 mg/dL (8.5-10.1); CHLORIDE 108 mmol/L (98-107); CO2 24 mmol/L (21-32); GLUCOSE,RANDOM 78 mg/dL (74-106); SGPT/ALT 18 U/L (12-78); SODIUM 141 mmol/L (136-145)
[2017-11-13 14:50] LABS: ALK PHOS 61 U/L (45-117); BILIRUBIN,TOTAL 0.4 mg/dL (0.2-1.0); CREATININE 1.1 mg/dL (0.7-1.3); N-TERMINAL BNP 110.55 pg/ml (5-125); TOT PROT 7.1 g/dl (6.4-8.2)
[2017-11-13 14:56] LABS: POTASSIUM 4.2 mmol/L (3.5-5.1); SGOT/AST 21 U/L (15-37)
[2017-11-13] MEDS ORDERED: ERGOCALCIFEROL (VITAMIN D2) 50,000 UNIT CAPSULE (FP) PO SCH (17:45)
[2017-11-13] MEDS ORDERED: ACETAMINOPHEN 325 MG TABLET (FP) PO PRN (17:48)
--- NOTE | 2017-11-13 20:10 | EKG ---
Test Reason : Blood Pressure : / mmHG Vent. Rate : 062 BPM Atrial Rate : 062 BPM P-R Int : 132 ms QRS Dur : 144 ms QT Int : 448 ms P-R-T Axes : 073 -62 061 degrees QTc Int : 454 ms Suspect unspecified pacemaker failure Atrial-sensed ventricular-paced rhythm ABNORMAL ECG WHEN COMPARED WITH ECG OF 12-JUN-2017 21:51, VENT. RATE HAS DECREASED BY 16 BPM Confirmed by PRANAV KRAMER MD ([id number]) on 11/13/2017 8:10:35 PM Referred By: Confirmed By:PRANAV KRAMER MD
--- NOTE | 2017-11-13 21:27 | HP ---
Admitting History and Physical - Primary Care Physician PCP: Jovan Kramer - Admission Chief Complaint: Chest Pain, Back Pain History of Present Illness: 57 y/o man with a significant medical history of CAD s/p Stent, [place], AICD x2, HTN , HLD, CHF, L- CVA with weakness, Chronic Back Pain s/p Rods. Who presents to the ED chest pain, back pain radiating to L- arm x am. Patient reports after picking up his grandchild then pain started and its constant. Patient reports having fatigue and dizziness as well. Patient denies fever, chills, SOB, AP, N/V /D, constipation, dysuria. 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 Cardiovascular: Yes: CAD, CHF, HTN, Hyperlipdemia, [place] Heme/Onc: Yes: Other (DVT) ENT: Yes: Sinusitis - Past Surgical History Past Surgical History: Yes: AICD - Smoking History Smoking history: Never smoked Have you smoked in the past 12 months: No Aproximately how many cigarettes per day: 0 If you are a former smoker, when did you quit?: 20 YEARS AGO - Alcohol/Substance Use Hx Alcohol Use: No - Social History Usual Living Arrangement: Yes: With Spouse ADL: Independent Occupation: Disabled History of Recent Travel: No Home Medications - Allergies Allergies/Adverse Reactions: Allergies Allergy/AdvReac Type Severity Reaction Status Date / Time diphenhydramine HCl Allergy Intermediate hives/blist Verified 06/12/17 08:41 [From Benadryl] ers. cyclobenzaprine HCl AdvReac Intermediate drowsy, Verified 06/12/17 08:41 [From Flexeril] sedation - Home Medications Home Medications: Ambulatory Orders Apixaban [Eliquis] 10 mg PO BID 06/12/17 Carvedilol 12.5 mg PO DAILY 06/12/17 Gabapentin 300 mg PO TID 06/12/17 Omeprazole 40 mg PO DAILY 06/12/17 Simvastatin 20 mg PO HS 06/12/17 Tamsulosin HCl [Flomax -] 0.4 mg PO DAILY 06/12/17 traZODone HCL [Trazodone HCl] 100 mg PO HS 06/12/17 Ergocalciferol [Vitamin D2] 50,000 unit PO Q7D 08/08/17 Acetaminophen 325 mg PO TID PRN #90 tablet 09/06/17 Diclofenac Sodium [Voltaren] 2 gm TP TID PRN #3 tube 09/06/17 Oxycodone HCl/Acetaminophen [Percocet 10-325 mg Tablet] 1 each PO TID PRN Family Disease History - Family Disease History Family Disease History: Heart Disease: Grandparent (htn, ), CA: Mother ( cancer, ), Sister (, 2nd sister in remission) Other Family History: Aunt- DM Review of Systems - Review of Systems Constitutional: reports: No Symptoms Eyes: reports: No Symptoms HENT: reports: No Symptoms Neck: reports: No Symptoms Cardiovascular: reports: Chest Pain Respiratory: reports: Cough Gastrointestinal: reports: No Symptoms Genitourinary: reports: No Symptoms Breasts: reports: No Symptoms Reported Musculoskeletal: reports: Back Pain Integumentary: reports: No Symptoms Neurological: reports: Numbness (L-arm) Endocrine: reports: No Symptoms Hematology/Lymphatic: reports: No Symptoms Psychiatric: reports: No Symptoms Pain Intensity: 7 Physical Examination Vital Signs: Vital Signs Temperature 97.7 F 11/13/17 17:56 Pulse Rate 50 L 11/13/17 17:56 Respiratory Rate 17 11/13/17 17:56 Blood Pressure 164/85 11/13/17 17:56 O2 Sat by Pulse Oximetry (%) 100 11/13/17 17:56 Constitutional: Yes: No Distress, Calm Eyes: Yes: WNL, Conjunctiva Clear, EOM Intact, PERRL HENT: Yes: WNL, Atraumatic, Normocephalic Neck: Yes: WNL, Supple, Trachea Midline Cardiovascular: Yes: Bradycardia, Pulse Irregular, S1 Respiratory: Yes: WNL, Regular, CTA Bilaterally, On Nasal O2 Gastrointestinal: Yes: Normal Bowel Sounds, Soft, Hyperactive Bowel Sounds ...Rectal Exam: Yes: WNL Renal/: Yes: Other (ESRD hx- make some urine) Breast(s): Yes: WNL Musculoskeletal: Yes: Back Pain Edema: LLE: Trace, RLE: Trace Peripheral Pulses WNL: Yes Neurological: Yes: WNL, Alert, Oriented, Cran Nerves II-XII Intact ...Motor Strength: WNL Psychiatric: Yes: WNL, Alert, Oriented Labs: CBC, BMP 11/13/17 13:21 11/13/17 13:21 Imaging - Results Chest X-ray: Report Reviewed (No acute pathology), Image Reviewed EKG: Report Reviewed (Atrial Sensed ventricularpace rhythm, vent rate decreased by 16bpm), Image Reviewed Problem List - Problems (1) Atypical chest pain Assessment/Plan: - r/o ACS - Heart Score 5 - Cardiac monitoring - Serial Enzymes - Chest xray- no acute pathology - EKG- reviewed - Per pt. AICD was interrogated today - Appreciate Cardiology consult - Asa given in ED will continue - Pt reports having a recent Echo Code(s): R07.89 - OTHER CHEST PAIN (2) Spinal stenosis at L4-L5 level Assessment/Plan: - s/p DJD replaced with rods - Poin medication prn Code(s): M48.06 - SPINAL STENOSIS, LUMBAR REGION * DO NOT USE * (3) Depression Assessment/Plan: - stable - Continue home meds Code(s): F32.9 - MAJOR DEPRESSIVE DISORDER, SINGLE EPISODE, UNSPECIFIED (4) H/O cardiac arrest Code(s): Z86.74 - PERSONAL HISTORY OF SUDDEN CARDIAC ARREST (5) History of CVA with residual deficit Assessment/Plan: - Continue current meds Code(s): I69.30 - UNSPECIFIED SEQUELAE OF CEREBRAL INFARCTION (6) Vitamin D deficiency Assessment/Plan: - Continue home med Code(s): E55.9 - VITAMIN D DEFICIENCY, UNSPECIFIED Assessment/Plan This is a 57 y/o man Placed in Tele Observation for Atypical Chest Pain, Acute Bradycardia, Acute on Chronic pain secondary to advance process. Plan: FEN - PO fluids as tolerated - Replete lytes prn - Na, Low Cholesterol Diet DVT ppx - OOB - SCDs - Continue Eliquis Code Status: Full Code Dispo: Tele Observation Visit type - Emergency Visit Emergency Visit: Yes ED Registration Date: 11/13/17 Care time: The patient presented to the Emergency Department on the above date and was hospitalized for further evaluation of their emergent condition. - New Patient This patient is new to me today: Yes Date on this admission: 11/13/17 - Critical Care Critical Care patient: No Hospitalist Screening - Colonoscopy Questionnaire Colonoscopy Questionnaire: Colonoscopy Questionnaire - Patient: 50 - 75 years old and never had a screening colonoscopy: No History of colon or rectal polyps, or CA: No History of IBD, Crohn's disease or UC: No History of abdominal radiation therapy as a child: No - Relative: 1 with colon or rectal CA, or polyps at age 60 or younger: No Colon or rectal CA diagnosed at age 45 or younger: No Multiple relatives with colon or rectal CA: No - Outcome: Screening Result: Negative Screen
[2017-11-13] MEDS ORDERED: APIXABAN 5 MG TABLET PO SCH (22:00)
[2017-11-13] MEDS: GABAPENTIN 300 MG CAPSULE (FP) PO SCH (22:47)
[2017-11-13] MEDS: traZODone HCL 50 MG TABLET (FP) PO SCH (22:47)
[2017-11-13] MEDS: ATORVASTATIN CA 10 MG TABLET (FP) PO SCH (22:47)
[2017-11-13] MEDS: APIXABAN 5 MG TABLET PO SCH (22:48)
[2017-11-14] MEDS: oxyCODONE HCL 5 MG TABLET PO PRN ×2 (05:28→12:13)
[2017-11-14] MEDS: GABAPENTIN 300 MG CAPSULE (FP) PO SCH ×3 (05:28→21:55)
--- NOTE | 2017-11-14 08:14 | PN ---
Progress Note, Physician - Current Medication List Current Medications: Active Medications Acetaminophen (Tylenol -) 650 mg PO Q4H PRN PRN Reason: PAIN LEVEL 1-5 Acetaminophen (Tylenol -) 325 mg PO Q8H PRN PRN Reason: PAIN LEVEL 7 - 10 Last Admin: 11/14/17 05:29 Dose: 325 mg Apixaban (Eliquis -) 5 mg PO BID [facility] Last Admin: 11/13/17 22:48 Dose: 5 mg Atorvastatin Calcium (Lipitor -) 10 mg PO HS [facility] Last Admin: 11/13/17 22:47 Dose: 10 mg Carvedilol (Coreg -) 12.5 mg PO DAILY [facility] Ergocalciferol (Drisdol -) 50,000 unit PO Fr@1000 [facility] Gabapentin (Neurontin -) 300 mg PO TID [facility] Last Admin: 11/14/17 05:28 Dose: 300 mg Oxycodone HCl (Roxicodone -) 10 mg PO Q8H PRN PRN Reason: PAIN LEVEL 7 - 10 Last Admin: 11/14/17 05:28 Dose: 10 mg Pantoprazole Sodium (Protonix -) 40 mg PO DAILY [facility] Tamsulosin HCl (Flomax -) 0.4 mg PO DAILY@0830 [facility] Trazodone HCl (Desyrel -) 100 mg PO [facility] Last Admin: 11/13/17 22:47 Dose: 100 mg - Objective Vital Signs: Vital Signs Temperature 97.7 F 11/14/17 05:00 Pulse Rate 55 L 11/14/17 05:00 Respiratory Rate 18 11/14/17 05:00 Blood Pressure 118/80 11/14/17 05:00 O2 Sat by Pulse Oximetry (%) 99 11/13/17 21:40 Labs: CBC, BMP 11/13/17 13:21 11/13/17 13:21 Problem List - Problems (1) Atypical chest pain Assessment/Plan: - r/o ACS - Heart Score 5 - Cardiac monitoring - Serial Enzymes - Chest xray- no acute pathology - EKG- reviewed - Per pt. AICD was interrogated today - Cardiology consult - Asa given in ED will continue - Pt reports having a recent Echo and stress test Code(s): R07.89 - OTHER CHEST PAIN (2) Post laminectomy syndrome Assessment/Plan: - s/p DJD replaced with rods - Poin medication prn Code(s): M96.1 - POSTLAMINECTOMY SYNDROME, NOT ELSEWHERE CLASSIFIED (3) Chronic back pain Code(s): M54.9 - DORSALGIA, UNSPECIFIED; G89.29 - OTHER CHRONIC PAIN (4) Coronary arteriosclerosis Code(s): I25.10 - ATHSCL HEART DISEASE OF [place] CORONARY ARTERY W/O ANG PCTRS (5) History of CVA with residual deficit Assessment/Plan: - Continue current meds Code(s): I69.30 - UNSPECIFIED SEQUELAE OF CEREBRAL INFARCTION (6) DVT (deep venous thrombosis) Assessment/Plan: on eliquis Code(s): I82.409 - ACUTE EMBOLISM AND THOMBOS UNSP DEEP VN UNSP LOWER EXTREMITY
[2017-11-14] MEDS: TAMSULOSIN HCL 0.4 MG CAP.ER.24H (FP) PO SCH (08:30)
[2017-11-14] MEDS: APIXABAN 5 MG TABLET PO SCH ×2 (09:42→21:55)
[2017-11-14] MEDS: PANTOPRAZOLE 40 MG TABLET (FP) PO SCH (09:43)
[2017-11-14] MEDS: CARVEDILOL 12.5 MG TABLET (FP) PO SCH (09:43)
[2017-11-14] MEDS: ACETAMINOPHEN 325 MG TABLET (FP) PO PRN (12:11)
--- NOTE | 2017-11-14 15:06 | CON.CARD ---
Consult Consult Specialty:: Cardiology f/u for Dr. Hannah Referred by:: Roxanne Mcintosh MD Reason for Consultation:: Atypical chest pain - History of Present Illness Chief Complaint: Chest pain History of Present Illness: Pt follows with clinical trial manager Dr. Lindsey Holt 57 year old man with a history of HTN, HLD, bradycardia s/p PPM 1998, reported "OK" 2012 at time when PPM reached EOL and "HR dropped to 30bpm" admitted to [facility] where he was found to have severe LV systolic dysfunction and an ICD was eventually implanted after a difficult PPM lead extraction. He then was diagnosed with a DVT in the LUE up to the LIJ which was tx with fragmin injections at home for some time followed by oral AC. In addition pt had a CVA approximately 2012 with residual left sided deficits and Chronic Back Pain s/p Rods who presents to the ED chest pain, back pain radiating to L- arm x am. Patient reports after picking up his grandchild then pain started and exacerbated with certain movements. Patient denies fever, chills, SOB, AP, N/V/D , constipation, dysuria. He states his chest pain has completely resolved. He states he has been shocked by his ICD in the past and was well aware of that episode, his current symptoms due not feel the same. He denies palpitations. No lightheadedness, dizziness, SOB. No PND, orthopnea, LE edema. He also states that he thinks he had a cardiac cath in 1998 at [facility] which he believes was normal. Currently has a card for a [employer]ER [employer]VOCATE-D device. 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 Cardio/Vascular: Yes: CAD, CHF, HTN, Hyperlipdemia, [place] ENT: Yes: Sinusitis - Past Surgical History Past Surgical History: Yes: AICD - Alcohol/Substance Use Hx Alcohol Use: No - Smoking History Smoking history: Never smoked Have you smoked in the past 12 months: No Aproximately how many cigarettes per day: 0 If you are a former smoker, when did you quit?: 20 YEARS AGO - Social History Usual Living Arrangement: With Significant Other ADL: Independent Occupation: Disabled History of Recent Travel: No Home Medications - Allergies Allergies/Adverse Reactions: Allergies Allergy/AdvReac Type Severity Reaction Status Date / Time diphenhydramine HCl Allergy Intermediate hives/blist Verified 06/12/17 08:41 [From Benadryl] ers. cyclobenzaprine HCl AdvReac Intermediate drowsy, Verified 06/12/17 08:41 [From Flexeril] sedation - Home Medications Home Medications: Ambulatory Orders Carvedilol 12.5 mg PO BID 06/12/17 Gabapentin 300 mg PO TID 06/12/17 Omeprazole 40 mg PO DAILY 06/12/17 Simvastatin 20 mg PO HS 06/12/17 Tamsulosin HCl [Flomax -] 0.4 mg PO DAILY 06/12/17 traZODone HCL [Trazodone HCl] 100 mg PO HS 06/12/17 Diclofenac Sodium [Voltaren] 2 gm TP TID PRN #3 tube 09/06/17 Oxycodone HCl/Acetaminophen [Percocet 10-325 mg Tablet] 1 each PO TID PRN Apixaban [Eliquis -] 5 mg PO BID tablet 11/15/17 Family Disease History - Family Disease History Family Disease History: Heart Disease: Grandparent (htn, ), CA: Mother ( cancer, ), Sister (, 2nd sister in remission) Other Family History: Aunt- DM Review of Systems - Review of Systems Cardiovascular: reports: Chest Pain Vital Signs: Vital Signs Temperature 97.9 F 11/14/17 13:00 Pulse Rate 47 L 11/14/17 13:00 Respiratory Rate 18 11/14/17 13:00 Blood Pressure 143/74 11/14/17 13:00 O2 Sat by Pulse Oximetry (%) 99 11/14/17 08:21 Constitutional: Yes: No Distress, Calm Neck: Yes: Supple Respiratory: Yes: Regular, CTA Bilaterally Gastrointestinal: Yes: Normal Bowel Sounds, Soft Cardiovascular: Yes: Regular Rate and Rhythm JVD: No Carotid Bruit: No Heart Sounds: Yes: S1, S2 Edema: No - Other Data Labs, Other Data: CBC, BMP 11/13/17 13:21 11/13/17 13:21 Troponin, BNP 11/13/17 11/14/17 16:16 00:00 Troponin I < 0.02 0.02 Troponin, BNP 11/13/17 11/14/17 16:16 00:00 Troponin I < 0.02 0.02 A-sensed v-paced @ 62 Imaging - Results Chest X-ray: Report Reviewed (NAD) Cat Scan: Report Reviewed (Chest CTA-No PE) Problem List - Problems (1) Atypical chest pain Code(s): R07.89 - OTHER CHEST PAIN (2) Coronary arteriosclerosis Code(s): I25.10 - ATHSCL HEART DISEASE OF [place] CORONARY ARTERY W/O ANG PCTRS (3) DVT (deep venous thrombosis) Code(s): I82.409 - ACUTE EMBOLISM AND THOMBOS UNSP DEEP VN UNSP LOWER EXTREMITY Qualifiers: DVT location: upper extremity Chronicity: chronic Laterality: left (4) History of CVA with residual deficit Code(s): I69.30 - UNSPECIFIED SEQUELAE OF CEREBRAL INFARCTION (5) Hyperlipemia Code(s): E78.5 - HYPERLIPIDEMIA, UNSPECIFIED Qualifiers: Hyperlipidemia type: pure hypercholesterolemia Qualified Code(s): E78.00 - Pure hypercholesterolemia, unspecified; E78.0 - Pure hypercholesterolemia (6) Hypertension Code(s): I10 - ESSENTIAL (PRIMARY) HYPERTENSION Qualifiers: Hypertension type: essential hypertension Qualified Code(s): I10 - Essential (primary) hypertension (7) Biventricular ICD (implantable cardioverter-defibrillator) in place Code(s): Z95.810 - PRESENCE OF AUTOMATIC (IMPLANTABLE) CARDIAC DEFIBRILLATOR Assessment/Plan 11/14/2017 Echo: Normal LV size and fxn, LVEF 55-60%, normal RV size and fxn, mild-mod TR, mild GA 1. Atypical chest pain of musculoskeletal etiology 2. Systolic dysfunction s/p C[employer]ER [employer]OCATE-D with improved contractile fxn 3. DVT LUE on NOAC 4. Non-obstructive CAD by cath at [facility] 2013 5. HTN/HCVD 6. Hyperlipidemia P:1. Ruled out for [place] 2. Decrease Eliquis 5 bid, continue cavedilol, zocor 3. May d/c home with f/u with Dr. Field in office 4. Thank you for consultative opportunity
--- NOTE | 2017-11-14 15:26 | ECHO ---
Name: DELANEY CASAS Exam:Adult Echocardiogram Study Date: 11/14/2017 12:07 PM Age: 57 yrs Reason For Study: Chest pain Height: 71 in Weight: 170 lb BSA: 2.0 m2 MMode/2D Measurements & Calculations IVSd: 1.7 cm Ao root diam: 3.1 cm LVIDd: 3.8 cm LA dimension: 3.4 cm LVIDs: 3.4 cm LVPWd: 1.5 cm EDV(Teich): 63.1 ml ESV(Teich): 46.1 ml Doppler Measurements & Calculations MV E max steven: 60.1 cm/sec TR max steven: 201.2 cm/sec MV A max steven: 55.8 cm/sec TR max P.2 mmHg MV E/A: 1.1 MV dec time: 0.51 sec PI Vmax: 188.7 cm/sec Procedure The study was technically adequate with some images being suboptimal in quality. Left Ventricle The left ventricle is normal in size. Ejection Fraction = 55-60%. No regional wall motion abnormaliti es noted. Right Ventricle There is a pacemaker lead in the right ventricle. The right ventricle is normal in size and function. Atria The left atrial size is normal. There is a catheter/pacemaker lead seen in the right atrium. Mitral Valve The mitral valve leaflets appear normal. There is no evidence of stenosis, fluttering, or prolapse. T here is mild mitral regurgitation. Tricuspid Valve The tricuspid valve is not well visualized, but is grossly normal. There is mild to moderate tricuspi d regurgitation. There was insufficient TR detected to calculate RV systolic pressure. Aortic Valve The aortic valve is trileaflet. No hemodynamically significant valvular aortic stenosis. No aortic regurgitation is present. Pulmonic Valve The pulmonic valve is not well visualized. Mild pulmonic valvular regurgitation. Great Vessels The aortic root is normal size. Pericardium/Pleura There is no pericardial effusion. Interpretation Summary The study was technically adequate with some images being suboptimal in quality. The left ventricle is normal in size. Ejection Fraction = 55-60%. No regional wall motion abnormalities noted. The right ventricle is normal in size and function. There is a pacemaker lead in the right ventricle. There is a catheter/pacemaker lead seen in the right atrium. The left atrial size is normal. There is mild to moderate tricuspid regurgitation. MD Bipin Lemos 11/14/2017 03:26 PM
[2017-11-14] MEDS: traZODone HCL 50 MG TABLET (FP) PO SCH ×2 (21:54→21:58)
[2017-11-14] MEDS: ATORVASTATIN CA 10 MG TABLET (FP) PO SCH (21:55)
[2017-11-15 05:43] VITALS: BP 144/86; PULSE 55; TEMP 98.5
[2017-11-15] MEDS: GABAPENTIN 300 MG CAPSULE (FP) PO SCH (06:02)
[2017-11-15] MEDS: TAMSULOSIN HCL 0.4 MG CAP.ER.24H (FP) PO SCH (08:30)
[2017-11-15] MEDS: CARVEDILOL 12.5 MG TABLET (FP) PO SCH (09:03)
[2017-11-15] MEDS: PANTOPRAZOLE 40 MG TABLET (FP) PO SCH (09:03)
[2017-11-15] MEDS: APIXABAN 5 MG TABLET PO SCH (09:03)
[2017-11-15] MEDS: ACETAMINOPHEN 325 MG TABLET (FP) PO PRN (09:09)
--- NOTE | 2017-11-15 09:22 | DS ---
Physical Examination Vital Signs: Vital Signs Temperature 98.5 F 11/15/17 05:42 Pulse Rate 55 L 11/15/17 05:42 Respiratory Rate 20 11/15/17 05:42 Blood Pressure 144/86 11/15/17 05:42 O2 Sat by Pulse Oximetry (%) 98 11/15/17 08:38 Labs: CBC, BMP 11/13/17 13:21 11/13/17 13:21 Discharge Summary Reason For Visit: CHEST PAIN Current Active Problems Chest pain (Acute) Hospital Course: - Problems (1) Atypical chest pain Assessment/Plan: - r/o ACS - Heart Score 5 - Cardiac monitoring - Serial Enzymes - Chest xray- no acute pathology - EKG- reviewed - Per pt. AICD was interrogated - Cardiology consult - Asa given in ED will continue - Pt reports having a recent Echo and stress test -Cta neg for pe -cleared for dc by cardio Code(s): R07.89 - OTHER CHEST PAIN (2) Post laminectomy syndrome Assessment/Plan: - s/p DJD replaced with rods - Poin medication prn Code(s): M96.1 - POSTLAMINECTOMY SYNDROME, NOT ELSEWHERE CLASSIFIED (3) Chronic back pain Code(s): M54.9 - DORSALGIA, UNSPECIFIED; G89.29 - OTHER CHRONIC PAIN (4) Coronary arteriosclerosis -same meds -cardio follow up as outpatient Code(s): I25.10 - ATHSCL HEART DISEASE OF [place] CORONARY ARTERY W/O ANG PCTRS (5) History of CVA with residual deficit Assessment/Plan: - Continue current meds Code(s): I69.30 - UNSPECIFIED SEQUELAE OF CEREBRAL INFARCTION (6) DVT (deep venous thrombosis) Assessment/Plan: on eliquis 5 bid Code(s): I82.409 - ACUTE EMBOLISM AND THOMBOS UNSP DEEP VN UNSP LOWER EXTREMITY Condition: Improved - Instructions Diet, Activity, Other Instructions: - Resume ravin daily activities - Avoid strenuous exercises - Follow-up with primary MD as scheduled - Follow-up with architect internship as scheduled Referrals: Jovan Kramer [Primary Care Provider] - 1 Week Disposition: HOME - Home Medications Comprehensive Discharge Medication List: Ambulatory Orders Carvedilol 12.5 mg PO BID 06/12/17 Gabapentin 300 mg PO TID 06/12/17 Omeprazole 40 mg PO DAILY 06/12/17 Simvastatin 20 mg PO HS 06/12/17 Tamsulosin HCl [Flomax -] 0.4 mg PO DAILY 06/12/17 traZODone HCL [Trazodone HCl] 100 mg PO HS 06/12/17 Diclofenac Sodium [Voltaren] 2 gm TP TID PRN #3 tube 09/06/17 Oxycodone HCl/Acetaminophen [Percocet 10-325 mg Tablet] 1 each PO TID PRN Apixaban [Eliquis -] 5 mg PO BID tablet 11/15/17
--- NOTE | 2017-11-15 09:25 | PN ---
Progress Note, Physician History of Present Illness: Pt follows with blackjack dealer Dr. Russ at [facility], last seen by Dr. Edmonds when admitted here earlier in 2018 57 year old man with a history of HTN, HLD, bradycardia s/p PPM 1998, reported "AK" 2011 at time when PPM reached EOL and "HR dropped to 30bpm" admitted to [facility] where he was found to have severe LV systolic dysfunction and an ICD was eventually implanted after a difficult PPM lead extraction. He then was diagnosed with a DVT in the LUE up to the LIJ which was tx with fragmin injections at home for some time followed by oral AC. In addition pt had a CVA approximately 2012 with residual left sided deficits and Chronic Back Pain s/p Rods who presents to the ED chest pain, back pain radiating to L- arm x am. Patient reports after picking up his grandchild then pain started and its constant. Patient reports having fatigue and dizziness as well. Patient denies fever, chills, SOB, AP, N/V/D, constipation, dysuria. He states his chest pain has completely resolved. He states he has been shocked by his ICD in the past and was well aware of that episode, his current symptoms due not feel the same. He denies palpitations. No lightheadedness, dizziness, SOB. No PND, orthopnea, LE edema. . He also states that he thinks he had a cardiac cath in 1998 at [facility] which he believes was normal. Currently has a card for a [employer] STORES CLERK-D device. - Current Medication List Current Medications: Active Medications Acetaminophen (Tylenol -) 650 mg PO Q4H PRN PRN Reason: PAIN LEVEL 1-5 Last Admin: 11/15/17 09:09 Dose: 650 mg Acetaminophen (Tylenol -) 325 mg PO Q8H PRN PRN Reason: PAIN LEVEL 7 - 10 Last Admin: 11/14/17 05:29 Dose: 325 mg Apixaban (Eliquis -) 5 mg PO BID [facility] Last Admin: 11/15/17 09:03 Dose: 5 mg Atorvastatin Calcium (Lipitor -) 10 mg PO HS [facility] Last Admin: 11/14/17 21:55 Dose: 10 mg Carvedilol (Coreg -) 12.5 mg PO DAILY [facility] Last Admin: 11/15/17 09:03 Dose: 12.5 mg Ergocalciferol (Drisdol -) 50,000 unit PO Fr@1000 [facility] Gabapentin (Neurontin -) 300 mg PO TID [facility] Last Admin: 11/15/17 06:02 Dose: 300 mg Oxycodone HCl (Roxicodone -) 10 mg PO Q8H PRN PRN Reason: PAIN LEVEL 7 - 10 Last Admin: 11/14/17 12:13 Dose: 10 mg Pantoprazole Sodium (Protonix -) 40 mg PO DAILY [facility] Last Admin: 11/15/17 09:03 Dose: 40 mg Tamsulosin HCl (Flomax -) 0.4 mg PO DAILY@0830 [facility] Last Admin: 11/15/17 08:30 Dose: 0.4 mg Trazodone HCl (Desyrel -) 100 mg PO HS [facility] Last Admin: 11/14/17 21:58 Dose: Not Given - Objective Vital Signs: Vital Signs Temperature 98.5 F 11/15/17 05:42 Pulse Rate 55 L 11/15/17 05:42 Respiratory Rate 20 11/15/17 05:42 Blood Pressure 144/86 11/15/17 05:42 O2 Sat by Pulse Oximetry (%) 98 11/15/17 08:38 Labs: CBC, BMP 11/13/17 13:21 11/13/17 13:21 Assessment/Plan Pt follows with blackjack dealer Dr. Russ at [facility], last seen by our group when admitted here in 2013. 56 year old man with a history of HTN, HLD, bradycardia s/p PPM 1998, reported "AK" 2011 at time when PPM reached EOL and "HR dropped to 30bpm" admitted to [facility] where he was found to have severe LV systolic dysfunction and an ICD was eventually implanted after a difficult PPM lead extraction. He then was diagnosed with a DVT in the LUE up to the LIJ which was tx with fragmin injections at home for some time followed by oral AC. In addition pt had a CVA approximately 2012 with residual left sided deficits.. Admitted here 08/2013 with an episode of palpitations, severe head throbbing, followed by chest discomfort. He also states that he thinks he had a cardiac cath in 1998 at [facility] which he believes was normal. Currently has a card for a [employer] STORES CLERK-D device. Now admitted with strep throat and substernal chest pain, concern raised for possible ICD shock. Pt seen and examined today. He states his chest pain has completely resolved. He states he has been shocked by his ICD in the past and was well aware of that episode, his current symptoms due not feel the same. Denies palpitations. No lightheadedness, dizziness, SOB. No PND, orthopnea, LE edema. Chest pain-atypical, resolved -troponin minimally elevated but did not trend up and with normal CK level -pt states he has been told his troponin is always minimally elevated -last cardiac cath approx 2013, as per chart showed mild non-obs CAD, believe this was done at [facility] -Echo here showed normal LV function -Need to interrogate his ICD ([employer]) to see if any shocks or significant arrhythmias -If no shocks or arrhythmias pt can likely be discharged from a cardiac standpoint with a plan for close outpatient f/up with his blackjack dealer Dr. Russ within 1 week -if shocked or VT/VF will need an ischemic work up and can start with nuclear stress test tomorrow Cardiomyopathy-presumed NICM given prior cath showing nonobs CAD -s/p BIV ICD -euvolemic -does not require diuresis at this time -cont coreg and diovan HTN-controlled -cont home medications DVT LUE -on eliquis, confirm dosage Apixaban [Eliquis] 10 mg PO BID 06/12/17 Carvedilol 12.5 mg PO BID 06/12/17 Gabapentin 300 mg PO TID 06/12/17 Omeprazole 40 mg PO DAILY 06/12/17 Simvastatin 20 mg PO HS 06/12/17 Tamsulosin HCl [Flomax -] 0.4 mg PO DAILY 06/12/17 traZODone HCL [Trazodone HCl] 100 mg PO HS 06/12/17 Ergocalciferol [Vitamin D2] 50,000 unit PO Q7D 08/08/17 Acetaminophen 325 mg PO TID PRN #90 tablet 09/06/17 Diclofenac Sodium [Voltaren] 2 gm TP TID PRN #3 tube 09/06/17 Oxycodone HCl/Acetaminophen [Percocet 10-325 mg Tablet] 1 each PO TID PRN
--- NOTE | 2017-11-15 09:40 | PN ---
Progress Note, Physician Chief Complaint: Cardiology f/u for Dr. Hannah History of Present Illness: Remains chest pain free without associated symptoms. - Current Medication List Current Medications: Active Medications Acetaminophen (Tylenol -) 650 mg PO Q4H PRN PRN Reason: PAIN LEVEL 1-5 Last Admin: 11/15/17 09:09 Dose: 650 mg Acetaminophen (Tylenol -) 325 mg PO Q8H PRN PRN Reason: PAIN LEVEL 7 - 10 Last Admin: 11/14/17 05:29 Dose: 325 mg Apixaban (Eliquis -) 5 mg PO BID [facility] Last Admin: 11/15/17 09:03 Dose: 5 mg Atorvastatin Calcium (Lipitor -) 10 mg PO [facility] Last Admin: 11/14/17 21:55 Dose: 10 mg Carvedilol (Coreg -) 12.5 mg PO DAILY [facility] Last Admin: 11/15/17 09:03 Dose: 12.5 mg Ergocalciferol (Drisdol -) 50,000 unit PO Fr@1000 [facility] Gabapentin (Neurontin -) 300 mg PO TID [facility] Last Admin: 11/15/17 06:02 Dose: 300 mg Oxycodone HCl (Roxicodone -) 10 mg PO Q8H PRN PRN Reason: PAIN LEVEL 7 - 10 Last Admin: 11/14/17 12:13 Dose: 10 mg Pantoprazole Sodium (Protonix -) 40 mg PO DAILY [facility] Last Admin: 11/15/17 09:03 Dose: 40 mg Tamsulosin HCl (Flomax -) 0.4 mg PO DAILY@0830 [facility] Last Admin: 11/15/17 08:30 Dose: 0.4 mg Trazodone HCl (Desyrel -) 100 mg PO [facility] Last Admin: 11/14/17 21:58 Dose: Not Given - Objective Vital Signs: Vital Signs Temperature 98.5 F 11/15/17 05:42 Pulse Rate 55 L 11/15/17 05:42 Respiratory Rate 20 11/15/17 05:42 Blood Pressure 144/86 11/15/17 05:42 O2 Sat by Pulse Oximetry (%) 98 11/15/17 08:38 Constitutional: Yes: No Distress, Calm, Thin Neck: Yes: Supple, Tenderness Respiratory: Yes: Regular, CTA Bilaterally Gastrointestinal: Yes: Normal Bowel Sounds, Soft Edema: No Labs: CBC, BMP 11/13/17 13:21 11/13/17 13:21 - ....Imaging EKG: Report Reviewed (Tele: A-sensed, v-paced 60s) Problem List - Problems (1) Atypical chest pain Code(s): R07.89 - OTHER CHEST PAIN (2) Coronary arteriosclerosis Code(s): I25.10 - ATHSCL HEART DISEASE OF [place] CORONARY ARTERY W/O ANG PCTRS (3) DVT (deep venous thrombosis) Code(s): I82.409 - ACUTE EMBOLISM AND THOMBOS UNSP DEEP VN UNSP LOWER EXTREMITY Qualifiers: DVT location: upper extremity Chronicity: chronic Laterality: left (4) History of CVA with residual deficit Code(s): I69.30 - UNSPECIFIED SEQUELAE OF CEREBRAL INFARCTION (5) Hyperlipemia Code(s): E78.5 - HYPERLIPIDEMIA, UNSPECIFIED Qualifiers: Hyperlipidemia type: pure hypercholesterolemia Qualified Code(s): E78.00 - Pure hypercholesterolemia, unspecified; E78.0 - Pure hypercholesterolemia (6) Hypertension Code(s): I10 - ESSENTIAL (PRIMARY) HYPERTENSION Qualifiers: Hypertension type: essential hypertension Qualified Code(s): I10 - Essential (primary) hypertension (7) Biventricular ICD (implantable cardioverter-defibrillator) in place Code(s): Z95.810 - PRESENCE OF AUTOMATIC (IMPLANTABLE) CARDIAC DEFIBRILLATOR Assessment/Plan 11/14/2017 Echo: Normal LV size and fxn, LVEF 55-60%, normal RV size and fxn, mild-mod TR, mild [place] 1. Atypical chest pain of musculoskeletal etiology 2. Systolic dysfunction s/p FIREFIGHTER TYPE ONE-D with improved contractile fxn 3. DVT LUE on NOAC 4. Non-obstructive CAD by cath at [facility] 2013 5. HTN/HCVD 6. Hyperlipidemia P:1. Ruled out for MS 2. Agree with decrease Eliquis 5 bid, continue cavedilol, zocor 3. May d/c home with f/u with Dr. Field in office
[2017-11-15] MEDS ORDERED: ERGOCALCIFEROL (VITAMIN D2) 50,000 UNIT CAPSULE (FP) PO SCH (10:00)
== END 2017-11-15 10:56 | disposition home or self-care (01) ==
LOC: JER 12:33 → JERBED 17:24 → J4W 21:45
PROVIDERS: ADMIT Internal Medicine; ATTEND Family Medicine
PROC: 3E033NZ Introduction of Analgesics, Hypnotics, Sedatives into Peripheral Vein, Percutaneous Approach (ICD-10-PCS; principal; 2017-11-13)
DX: R07.89 Other chest pain (principal); I11.0 Hypertensive heart disease with heart failure; I50.9 Heart failure, unspecified; I25.10 Atherosclerotic heart disease of native coronary artery without angina pectoris; I25.2 Old myocardial infarction; I69.354 Hemiplegia and hemiparesis following cerebral infarction affecting left non-dominant side; E78.5 Hyperlipidemia, unspecified; R00.1 Bradycardia, unspecified; M48.061 Spinal stenosis, lumbar region without neurogenic claudication; F32.9 Major depressive disorder, single episode, unspecified; E55.9 Vitamin D deficiency, unspecified; M96.1 Postlaminectomy syndrome, not elsewhere classified; M54.9 Dorsalgia, unspecified; G89.29 Other chronic pain; I82.409 Acute embolism and thrombosis of unspecified deep veins of unspecified lower extremity; Z98.1 Arthrodesis status; Z79.01 Long term (current) use of anticoagulants; Z98.61 Coronary angioplasty status; Z95.810 Presence of automatic (implantable) cardiac defibrillator; Z88.8 Allergy status to other drugs, medicaments and biological substances
CPT/HCPCS: 36415; 71045-TC-FY; 71275-TC; 80053; 82550; 82553; 83880; 84484; 85025; 93005; 93010; 93306-TC; 96374; 96376; 99284-25; G0378

== ENCOUNTER 2018-04-30 10:58 | Observation (INO) | payer OTHER ==
[2018-04-30 11:13] VITALS: BMI 22.6
--- NOTE | 2018-04-30 12:18 | PDOC ---
History of Present Illness - General Chief Complaint: Chest Pain Stated Complaint: CHEST PAIN Time Seen by Provider: 04/30/18 12:16 - History of Present Illness Initial Comments: 04/30/18 14:19 The patient is a 57-year-old male, with a past medical history of HTN, HLD, IL, defibrillator/pacemaker - 2011, DVT (on Eliquis), CVA (2012 with residual left- sided weakness), who presents to the ED with chest pain that began at 11:30 AM. The patient states that he was seated when the pain came on. He describes the pain as constant, sharp/throbbing in sensation, radiating to his RT arm and neck , exacerbated with exertion, with associated lightheadness, weakness, and shortness of breath. He reports taking his morning medications, percocet, and nitro with no relief of his symptoms. Patient is also complaining of 1 year of upper and lower back pain since his spine surgery in 2016. The patient denies any fever, chills, nausea, vomiting, diarrhea, or abdominal pain. Denies any lower extremity swelling. Allergies: NKA Social History: None reported. Surgical History: hernia repair (1983), pacemaker/defibrillator (2011), lumbar spine fusion - 05/29/16. Past History - Past Medical History Allergies/Adverse Reactions: Allergies Allergy/AdvReac Type Severity Reaction Status Date / Time diphenhydramine HCl Allergy Intermediate hives/blist Verified 04/30/18 11:10 [From Benadryl] ers. cyclobenzaprine HCl AdvReac Intermediate drowsy, Verified 04/30/18 11:10 [From Flexeril] sedation Home Medications: Ambulatory Orders Carvedilol 12.5 mg PO BID 06/12/17 Gabapentin 300 mg PO TID 06/12/17 Omeprazole 40 mg PO DAILY 06/12/17 Simvastatin 20 mg PO HS 06/12/17 Tamsulosin HCl [Flomax -] 0.4 mg PO DAILY 06/12/17 traZODone HCL [Trazodone HCl] 100 mg PO HS 06/12/17 Apixaban [Eliquis -] 5 mg PO BID tablet 11/15/17 Percocet 10-325 mg Tablet 10 - 325 mg PO TID 04/30/18 Asthma: No Cardiac Disorders: Yes (defibrillator/ PACEMAKER, hx IL) CVA: Yes (2013 / mild weakness left side ) COPD: No Dementia: No Diabetes: No GI Disorders: No Disorders: No HTN: Yes Hypercholesterolemia: Yes Liver Disease: No Seizures: No Thyroid Disease: No - Surgical History Abdominal Surgery: Yes (hernia repair 1983) Cardiac Surgery: Yes (PACEMAKER/DEFIB: 2012) Orthopedic Surgery: Yes (05/29/16 lumbar fusion) - Immunization History Immunization Up to Date: Yes - Suicide/Smoking/Psychosocial Hx Smoking Status: No Smoking History: Never smoked Have you smoked in the past 12 months: No Number of Cigarettes Smoked Daily: 0 If you are a former smoker, when did you quit?: 20 YEARS AGO 'Breaking Loose' booklet given: 09/17/13 Hx Alcohol Use: No Drug/Substance Use Hx: No Substance Use Type: None Hx Substance Use Treatment: No Review of Systems - Review of Systems Comments:: 04/30/18 14:21 GENERAL/CONSTITUTIONAL: (+)Weakness. No fever or chills. EYES, EARS, NOSE AND THROAT: No change in vision. No ear pain or discharge. No sore throat. GASTROINTESTINAL: No nausea, vomiting, diarrhea or constipation. GENITOURINARY: No dysuria, frequency, or change in urination. CARDIOVASCULAR: (+)chest pain and shortness of breath. RESPIRATORY: No cough, wheezing, or hemoptysis. MUSCULOSKELETAL: (+)Lower back pain. No joint swelling or pain. No neck or back pain. SKIN: No rash NEUROLOGIC: No headache, vertigo, loss of consciousness, or change in strength/ sensation. ENDOCRINE: No increased thirst. No abnormal weight change. HEMATOLOGIC/LYMPHATIC: No anemia, easy bleeding, or history of blood clots. ALLERGIC/IMMUNOLOGIC: No hives or skin allergy. *Physical Exam - Vital Signs Last Vital Signs Temp Pulse Resp BP Pulse Ox 97.4 F L 60 18 100/76 98 04/30/18 11:10 04/30/18 11:10 04/30/18 11:10 04/30/18 11:10 04/30/18 11:10 - Physical Exam Comments: 04/30/18 14:21 GENERAL: Awake, alert, and fully oriented, in no acute distress, resting comfortably EYES: PERRLA, EOMI, sclera anicteric, conjunctiva clear ENT: Oropharynx clear without exudates. Moist mucosa NECK: Normal ROM, supple, no lymphadenopathy, JVD, or masses LUNGS: Breath sounds equal, clear to auscultation bilaterally. No wheezes, and no crackles HEART: Regular rate and rhythm, normal S1 and S2, no murmurs, rubs or gallops ABDOMEN: Soft, nontender, normoactive bowel sounds. No guarding, no rebound. No masses EXTREMITIES: Normal range of motion, no edema. No clubbing or cyanosis. No cords , erythema, or tenderness BACK: No midline spinal tenderness in cervical/thoracic/lumbar region NEUROLOGICAL: Normal speech, cranial nerves intact, normal stregnth and sensation b/l SKIN: Warm, Dry, normal turgor, no rashes or lesions noted. Moderate Sedation - Procedure Monitoring Vital Signs: Procedure Monitoring Vital Signs Temperature 97.4 F L 04/30/18 11:10 Pulse Rate 60 04/30/18 11:10 Respiratory Rate 18 04/30/18 11:10 Blood Pressure 100/76 04/30/18 11:10 O2 Sat by Pulse Oximetry (%) 98 04/30/18 11:10 Heart Score/ECG Review - History History: Moderately suspicious - Electrocardiogram EKG: Non specific repolarization disturbance - Age Age: 45-65 - Risk Factors Based on the list above the patient has:: >/=3 risk factors or Hx atherosclerotic disease - Troponin Troponin: </= normal limit - Score Heart Score - Total: 5 #1 04/30/18 14:22 Twelve-lead EKG was performed and reviewed by me. Atrial sensed, ventricular paced rhythm, rate 56. ED Treatment Course - LABORATORY CBC & Chemistry Diagram: 04/30/18 12:15 04/30/18 12:15 Medical Decision Making - Medical Decision Making 04/30/18 14:00 57yo M with MMP presents to the ED with sudden onset sternal chest pressure radiating to the RUE and R neck. Vitals wnl. Exam wnl. EKG paced. Pt is at high risk for ACS give risk factors. Low likelihood PE as no risk factors and O2 sat , HR, and RR wnl. Story non consistent with dissection, pt is comfortable at this time with equal pulses. Pain does not radiate to the back. Plan for labs, CXR, admit. 04/30/18 14:33 Labs including trop wnl CXR clear, normal mediastinum Pain well controlled with morphine (pt had percocet and nitro at home with no relief) Case discussed with Dr. Kramer's POUNCER MACHINE Chris Lambert, pt accepted for admission to tele obs Case discussed in detail with admitting physician including history, physical exam and ancillary studies. Admitting physician has assumed care for the patient, will follow all pending diagnostics and will complete the evaluation and treatment. 04/30/18 15:[address] Scott as well, requests echo and consult to Dr. Juan which have been ordered. *DC/Admit/Observation/Transfer Diagnosis at time of Disposition: Chest pain - Discharge Dispostion Condition at time of disposition: Stable Decision to Admit order: Yes - Referrals - Patient Instructions - Post Discharge Activity - Attestations Physician Attestion: 04/30/18 14:38 I, Dr. Blake Zepeda MD, attest that this document has been prepared under my direction and personally reviewed by me in its entirety. I further attest, that it accurately reflects all work, treatment, procedures and medical decision -making performed by me.
[2018-04-30 12:31] LABS: BASO % 0.4 % (0-2.0); EOS % 5.7 % (0-4.5); HEMATOCRIT 38.9 % (35.4-49); HEMOGLOBIN 13.6 GM/dL (11.7-16.9); LYMPH % 32.4 % (8-40); MCH 30.3 pg (25.7-33.7); MCHC 34.9 g/dl (32.0-35.9); MEAN CELL VOLUME 86.8 fl (80-96); MEAN PLT VOLUME 9.4 fl (7.5-11.1); MONO % 4.6 % (3.8-10.2); NEUT % 56.9 % (42.8-82.8); PLATELET COUNT 126 K/MM3 (134-434); RBC 4.48 M/mm3 (4.00-5.60); RDW 13.5 % (11.9-15.9); WHITE BLOOD COUNT 5.1 K/mm3 (4.0-10.0)
[2018-04-30 12:41] LABS: INR 1.29 (0.83-1.09); PROTHROMBIN TIME (PATIENT) 15.3 SEC (9.7-13.0)
[2018-04-30 12:50] LABS: ALK PHOS 68 U/L (45-117); ANION GAP 7 MMOL/L (8-16); BILIRUBIN,TOTAL 0.5 mg/dL (0.2-1); BLOOD UREA NITROGEN 12 mg/dL (7-18); CALCIUM 8.5 mg/dL (8.5-10.1); CHLORIDE 108 mmol/L (98-107); CO2 25 mmol/L (21-32); CREATININE 1.1 mg/dL (0.55-1.3); GLUCOSE,RANDOM 94 mg/dL (74-106); MAGNESIUM 2.3 mg/dL (1.8-2.4); PHOSPHOROUS 3.3 mg/dL (2.5-4.9); POTASSIUM 4.2 mmol/L (3.5-5.1); SGOT/AST 16 U/L (15-37); SGPT/ALT 18 U/L (13-61); SODIUM 140 mmol/L (136-145); TOT PROT 7.4 g/dl (6.4-8.2)
[2018-04-30] MEDS ORDERED: morphine CARPU-JECT 4 MG/1 ML DISP.SYRIN IVPUSH ONE (13:02)
[2018-04-30] MEDS ORDERED: morphine SULFATE 4 MG/ML VIAL ONE (13:07)
--- NOTE | 2018-04-30 13:47 | EKG ---
Test Reason : Blood Pressure : / mmHG Vent. Rate : 056 BPM Atrial Rate : 056 BPM P-R Int : 128 ms QRS Dur : 132 ms QT Int : 438 ms P-R-T Axes : 000 -59 102 degrees QTc Int : 422 ms AV SEQUENTIAL OR DUAL CHAMBER ELECTRONIC PACEMAKER ABNORMAL ECG WHEN COMPARED WITH ECG OF 13-NOV-2017 12:41, VENT. RATE HAS DECREASED BY 6 BPM Confirmed by KELLY JORDAN MD ([id number]) on 04/30/2018 1:47:33 PM Referred By: Confirmed By:KELLY JORDAN MD
--- NOTE | 2018-04-30 16:07 | ECHO ---
Name: DELANEY CASAS Exam:Adult Echocardiogram Study Date: 04/30/2018 03:24 PM Age: 57 yrs Reason For Study: Chest pain Height: 71 in Weight: 162 lb BSA: 1.9 m2 MMode/2D Measurements & Calculations IVSd: 0.99 cm ACS: 2.0 cm LVIDd: 4.3 cm LVIDs: 3.0 cm LVPWd: 1.3 cm EDV(Teich): 82.8 ml LVOT diam: 2.0 cm ESV(Teich): 35.2 ml RV S Aurelio: 10.1 cm/sec Doppler Measurements & Calculations MV E max aurelio: 70.2 cm/sec MV A max aurelio: 53.5 cm/sec MV dec slope: 197.3 cm/sec2 MV E/A: 1.3 TR max aurelio: 147.5 cm/sec PI end-d aurelio: 183.2 cm/sec TR max P.4 mmHg Med Peak E' Aurelio: 6.0 cm/sec Med E/e': 11.7 Lat Peak E' Aurelio: 11.2 cm/sec Lat E/e': 6.3 Procedure A two-dimensional transthoracic echocardiogram with color flow and Doppler was performed. The study w as technically difficult with many images being suboptimal in quality. Left Ventricle The left ventricle is normal in size. Left ventricular systolic function is mildly reduced. Ejection Fraction = 45-50%. Regional wall motion abnormalities cannot be excluded due to limited visualization. Septal motion is consistent with conduction abnormality. There is mild global hypokinesis of the left ventricle. Right Ventricle The right ventricle is normal in size and function. There is a pacemaker lead in the right ventricle. Atria The left atrium is not well visualized. Right atrium not well visualized. Mitral Valve There is mild mitral valve thickening. There is no mitral valve stenosis. There is moderate to severe mitral regurgitation. Tricuspid Valve There is mild tricuspid valve thickening. There is no tricuspid stenosis. There is moderate to severe tricuspid regurgitation. Right ventricular systolic pressure is normal. Aortic Valve The aortic valve is not well visualized. No hemodynamically significant valvular aortic stenosis. No aortic regurgitation is present. Pulmonic Valve The pulmonic valve is not well visualized. There is no pulmonic valvular stenosis. Mild pulmonic valv ular regurgitation. Great Vessels The aortic root is normal size. Pericardium/Pleura There is no pericardial effusion. Interpretation Summary There is moderate to severe mitral regurgitation. Right ventricular systolic pressure is normal. There is a pacemaker lead in the right ventricle. There is moderate to severe tricuspid regurgitation. The study was technically difficult with many images being suboptimal in quality. Regional wall motion abnormalities cannot be excluded due to limited visualization. Septal motion is consistent with conduction abnormality. The left ventricle is normal in size. Left ventricular systolic function is mildly reduced. Ejection Fraction = 45-50%. There is mild global hypokinesis of the left ventricle. MD Geronimo Nam 04/30/2018 04:07 PM
[2018-04-30] MEDS ORDERED: MORPHINE SULFATE 2 MG/ML VIAL ONE (18:59)
[2018-04-30] MEDS: MORPHINE SULFATE 2 MG/ML VIAL IVPUSH PRN ×2 (19:07→23:50)
[2018-04-30] MEDS ORDERED: NITROGLYCERIN SUBLINGUAL 1/200 0.3 MG BTL SL PRN (19:41)
[2018-04-30] MEDS ORDERED: traZODone HCL 50 MG TABLET (FP) ONE (21:17)
[2018-04-30] MEDS: ATORVASTATIN CA 10 MG TABLET (FP) PO SCH (21:35)
[2018-04-30] MEDS: APIXABAN 5 MG TABLET PO SCH (21:35)
[2018-04-30] MEDS: GABAPENTIN 300 MG CAPSULE (FP) PO SCH (21:35)
[2018-04-30] MEDS: traZODone HCL 100 MG TABLET (FP) PO SCH (21:35)
[2018-04-30] MEDS ORDERED: CARVEDILOL 12.5 MG TABLET (FP) PO SCH (22:00)
[2018-05-01] MEDS: GABAPENTIN 300 MG CAPSULE (FP) PO SCH ×3 (06:50→21:01)
[2018-05-01] MEDS: MORPHINE SULFATE 2 MG/ML VIAL IVPUSH PRN ×3 (06:50→20:48)
[2018-05-01] MEDS ORDERED: PT OWN MED DRAWER 7, Y5N ONE ×2 (09:13→20:38)
[2018-05-01] MEDS: TAMSULOSIN HCL 0.4 MG CAP PO SCH (09:20)
[2018-05-01] MEDS: PANTOPRAZOLE 40 MG TABLET (FP) PO SCH (09:20)
[2018-05-01] MEDS: APIXABAN 5 MG TABLET PO SCH ×2 (09:20→21:02)
--- NOTE | 2018-05-01 13:49 | CON.CARD ---
Consult Consult Specialty:: cardiology Referred by:: Tyler Reason for Consultation:: Chest and back pains. - History of Present Illness Chief Complaint: Back pains. History of Present Illness: The patient is a 57-year-old man with a history of diabetes, hypertension, hyperlipidemia, permanent pacemaker, DVT in 2011 on Eliquis, stroke 2012 with left-sided weakness, status post recent spine surgery, now presenting with back and chest pains. X The patient reports persistent back pains since his surgery. Symptoms become severe at times. Yesterday he also reported right sided chest discomfort at rest. The patient stated that the had caught a catheterization about a year and a half ago which showed normal coronary arteries. No intervention was done. The patient is current chest pain-free. 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 Cardio/Vascular: Yes: CHF, HTN, Hyperlipdemia ENT: Yes: Sinusitis - Past Surgical History Past Surgical History: Yes: AICD - Alcohol/Substance Use Hx Alcohol Use: No - Smoking History Smoking history: Former smoker Have you smoked in the past 12 months: No Aproximately how many cigarettes per day: 0 If you are a former smoker, when did you quit?: 20 YEARS AGO - Social History Usual Living Arrangement: With Significant Other ADL: Independent Occupation: Disabled History of Recent Travel: No Home Medications - Allergies Allergies/Adverse Reactions: Allergies Allergy/AdvReac Type Severity Reaction Status Date / Time diphenhydramine HCl Allergy Intermediate hives/blist Verified 04/30/18 11:10 [From Benadryl] ers. cyclobenzaprine HCl AdvReac Intermediate drowsy, Verified 04/30/18 11:10 [From Flexeril] sedation - Home Medications Home Medications: Ambulatory Orders Carvedilol 12.5 mg PO BID 06/12/17 Gabapentin 300 mg PO TID 06/12/17 Omeprazole 40 mg PO DAILY 06/12/17 Simvastatin 20 mg PO HS 06/12/17 Tamsulosin HCl [Flomax -] 0.4 mg PO DAILY 06/12/17 traZODone HCL [Trazodone HCl] 100 mg PO HS 06/12/17 Apixaban [Eliquis -] 5 mg PO BID tablet 11/15/17 Percocet 10-325 mg Tablet 10 - 325 mg PO TID 04/30/18 Family Disease History - Family Disease History Family Disease History: Heart Disease: Grandparent (htn, ), [place]: Mother ( cancer, ), Sister (, 2nd sister in remission) Review of Systems - Review of Systems Constitutional: reports: No Symptoms Eyes: reports: No Symptoms HENT: reports: No Symptoms Neck: reports: Stiffness, Tenderness Cardiovascular: reports: No Symptoms Respiratory: reports: No Symptoms Gastrointestinal: reports: No Symptoms Genitourinary: reports: No Symptoms Breasts: reports: No Symptoms Reported Musculoskeletal: reports: Back Pain Integumentary: reports: No Symptoms Neurological: reports: No Symptoms Endocrine: reports: No Symptoms Hematology/Lymphatic: reports: No Symptoms Vital Signs: Vital Signs Temperature 98.3 F 05/01/18 06:15 Pulse Rate 56 L 05/01/18 06:15 Respiratory Rate 18 05/01/18 06:15 Blood Pressure 108/45 L 05/01/18 06:15 O2 Sat by Pulse Oximetry (%) 100 05/01/18 03:38 Constitutional: Yes: Well Nourished, No Distress, Calm Eyes: Yes: WNL, Conjunctiva Clear, EOM Intact HENT: Yes: WNL, Atraumatic, Normocephalic Neck: Yes: WNL, Supple, Trachea Midline, Tenderness Respiratory: Yes: WNL, Regular, CTA Bilaterally Gastrointestinal: Yes: WNL, Normal Bowel Sounds, Soft Renal/: Yes: WNL Cardiovascular: Yes: WNL, Regular Rate and Rhythm JVD: No Carotid Bruit: No PMI: Non-Displaced Heart Sounds: Yes: S1, S2 Murmur: Yes: Systolic Murmur, Grade 2 Musculoskeletal: Yes: Back Pain Extremities: Yes: WNL Edema: No Peripheral Pulses WNL: Yes Integumentary: Yes: WNL Neurological: Yes: WNL - Other Data Labs, Other Data: CBC, BMP 04/30/18 12:15 04/30/18 12:15 INR, PTT INR 1.29 (0.83-1.09) H 04/30/18 12:15 Troponin, BNP 04/30/18 05/01/18 19:30 00:00 Troponin I 0.03 0.02 Troponin, BNP 04/30/18 05/01/18 19:30 00:00 Troponin I 0.03 0.02 Assessment/Plan The patient is a 57-year-old man with a history of diabetes, hypertension, hyperlipidemia, permanent pacemaker, DVT in 2011 on Eliquis, stroke 2013 with left-sided weakness, status post recent spine surgery, now presenting with back and chest pains. X The patient reports persistent back pains since his surgery. Symptoms become severe at times. Yesterday he also reported right sided chest discomfort at rest. The patient stated that the had caught a catheterization about a year and a half ago which showed normal coronary arteries. No intervention was done. The patient is current chest pain-free. There is no evidence of ischemia nor acute coronary syndrome. The echocardiogram showed mild left ventricular systolic dysfunction. No segmental wall motion abnormalities. Global dysfunction. There was moderate to severe mitral and tricuspid valve regurgitation. The patient is in sinus rhythm, pacing the ventricle. No clinically important findings on noted on telemetry. There is no need for further inpatient cardiac workup in this setting. I believe that the patient's chest pains are of noncardiac origin. May stop telemetry. Please arrange for a follow-up visit with the patient's own cafeteria table attendant to address the echocardiographic findings. These findings are not urgent. Please do not hesitate to call us PRN.
--- NOTE | 2018-05-01 14:59 | HP ---
Admitting History and Physical - Primary Care Physician PCP: Kirstin Scott - Admission Chief Complaint: chest pain and headache History of Present Illness: The patient is a 57-year-old male, with a past medical history of HTN, HLD, [place], defibrillator/pacemaker - 2011, DVT (on Eliquis), CVA (2012 with residual left- sided weakness), who presents to the ED with chest pain that began at 11:30 AM. The patient states that he was seated when the pain came on. He describes the pain as constant, sharp/throbbing in sensation, radiating to his RT arm and neck , exacerbated with exertion, with associated lightheadness, weakness, and shortness of breath. He reports taking his morning medications, percocet, and nitro with no relief of his symptoms. Patient is also complaining of 1 year of upper and lower back pain since his spine surgery in 2016. The patient denies any fever, chills, nausea, vomiting, diarrhea, or abdominal pain. Denies any lower extremity swelling. Allergies: NKA Social History: None reported. Surgical History: hernia repair (1983), pacemaker/defibrillator (2011), lumbar spine fusion - 05/29/16. 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 Cardiovascular: Yes: CHF, HTN, Hyperlipdemia Heme/Onc: Yes: Other (DVT) ENT: Yes: Sinusitis - Past Surgical History Past Surgical History: Yes: AICD - Smoking History Smoking history: Former smoker Have you smoked in the past 12 months: No Aproximately how many cigarettes per day: 0 If you are a former smoker, when did you quit?: 20 YEARS AGO - Alcohol/Substance Use Hx Alcohol Use: No - Social History ADL: Independent Occupation: Disabled History of Recent Travel: No Home Medications - Allergies Allergies/Adverse Reactions: Allergies Allergy/AdvReac Type Severity Reaction Status Date / Time diphenhydramine HCl Allergy Intermediate hives/blist Verified 04/30/18 11:10 [From Benadryl] ers. cyclobenzaprine HCl AdvReac Intermediate drowsy, Verified 04/30/18 11:10 [From Flexeril] sedation - Home Medications Home Medications: Ambulatory Orders Carvedilol 12.5 mg PO BID 06/12/17 Gabapentin 300 mg PO TID 06/12/17 Omeprazole 40 mg PO DAILY 06/12/17 Simvastatin 20 mg PO HS 06/12/17 Tamsulosin HCl [Flomax -] 0.4 mg PO DAILY 06/12/17 traZODone HCL [Trazodone HCl] 100 mg PO HS 06/12/17 Apixaban [Eliquis -] 5 mg PO BID tablet 11/15/17 Percocet 10-325 mg Tablet 10 - 325 mg PO TID 04/30/18 Family Disease History - Family Disease History Family Disease History: Heart Disease: Grandparent (htn, ), [place]: Mother ( cancer, ), Sister (, 2nd sister in remission) Review of Systems - Review of Systems HENT: reports: Other (headache) Musculoskeletal: reports: Muscle Pain Physical Examination Vital Signs: Vital Signs Temperature 98.3 F 05/01/18 06:15 Pulse Rate 56 L 05/01/18 06:15 Respiratory Rate 18 05/01/18 06:15 Blood Pressure 108/45 L 05/01/18 06:15 O2 Sat by Pulse Oximetry (%) 100 05/01/18 03:38 Constitutional: Yes: Calm Cardiovascular: Yes: Regular Rate and Rhythm, S1, S2 Respiratory: Yes: CTA Bilaterally Gastrointestinal: Yes: Normal Bowel Sounds, Soft Musculoskeletal: Yes: Other (left sided point tenderness under the breast) Edema: No Labs: CBC, BMP 04/30/18 12:15 04/30/18 12:15 Problem List - Problems (1) Atypical chest pain Assessment/Plan: appreicate cardiology consult echo done troponin 3 set negative looks like it is muscular skeletal pain pain control voltaren gel Code(s): R07.89 - OTHER CHEST PAIN (2) New onset of headaches Assessment/Plan: dr ahmadi consult maybe migraine given he has photophobia Code(s): R51 - HEADACHE (3) DVT (deep venous thrombosis) Assessment/Plan: on eliquis Code(s): I82.409 - ACUTE EMBOLISM AND THOMBOS UNSP DEEP VN UNSP LOWER EXTREMITY
--- NOTE | 2018-05-01 15:36 | ECHO ---
Name: DELANEY CASAS Exam:Adult Echocardiogram Study Date: 05/01/2018 10:35 AM Age: 57 yrs Reason For Study: Chest pain Height: 71 in Weight: 162 lb BSA: 1.9 m2 MMode/2D Measurements & Calculations IVSd: 1.1 cm Ao root diam: 3.3 cm LVIDd: 5.0 cm LA dimension: 3.3 cm LVIDs: 3.3 cm LVPWd: 1.1 cm LVPWs: 2.0 cm EDV(Teich): 120.3 ml ESV(Teich): 43.0 ml LVOT diam: 1.8 cm Doppler Measurements & Calculations MV E max aurelio: 49.9 cm/sec Ao V2 max: 135.3 cm/sec MV A max aurelio: 32.1 cm/sec Ao max P.3 mmHg MV E/A: 1.6 MV dec time: 0.24 sec JESI(V,D): 1.8 cm2 LV V1 max P.6 mmHg MR max aurelio: 525.8 cm/sec LV V1 max: 94.8 cm/sec MR max P.6 mmHg TR max aurelio: 199.5 cm/sec PA V2 max: 82.1 cm/sec TR max P.0 mmHg PA max P.7 mmHg PA acc slope: 149.8 cm/sec2 PA acc time: 0.69 sec Med Peak E' Aurelio: 5.3 cm/sec PA pr(Accel): -230.0 mmHg Med E/e': 9.5 Lat Peak E' Aurelio: 8.2 cm/sec Lat E/e': 6.1 Procedure A complete two-dimensional transthoracic echocardiogram was performed (2D, M-mode, Doppler and color flow Doppler). Left Ventricle The left ventricular size, thickness and function are normal. The left ventricular ejection fraction is normal. Ejection Fraction = 55-60%. The left ventricular wall motion is normal. Right Ventricle The right ventricle is normal in size and function. Atria Normal left and right atrial size and function. There is a catheter/pacemaker lead seen in the right atrium. Mitral Valve There is trace mitral regurgitation. Tricuspid Valve There is moderate tricuspid regurgitation. Right ventricular systolic pressure is normal. Aortic Valve The aortic valve is trileaflet. No hemodynamically significant valvular aortic stenosis. No aortic regurgitation is present. Pulmonic Valve Trace pulmonic valvular regurgitation. Great Vessels The aortic root is normal size. Pericardium/Pleura There is no pericardial effusion. Interpretation Summary The left ventricular size, thickness and function are normal The right ventricle is normal in size and function. There is a pacemaker lead seen in the right atrium and ventricle. There is moderate tricuspid regurgitation. Trace pulmonic valvular regurgitation. There is trace mitral regurgitation. MD Ford Childers 05/01/2018 03:35 PM
[2018-05-01] MEDS ORDERED: traZODone HCL 50 MG TABLET (FP) ONE (20:37)
[2018-05-01] MEDS: ATORVASTATIN CA 10 MG TABLET (FP) PO SCH (21:01)
[2018-05-01] MEDS: traZODone HCL 100 MG TABLET (FP) PO SCH (21:02)
[2018-05-01] MEDS: METHYL SALICYLATE/MENTHOL OINT 30 GM TUBE TP SCH (22:00)
[2018-05-02] MEDS: GABAPENTIN 300 MG CAPSULE (FP) PO SCH ×2 (06:57→13:47)
[2018-05-02] MEDS: TAMSULOSIN HCL 0.4 MG CAP PO SCH (09:15)
[2018-05-02] MEDS: PANTOPRAZOLE 40 MG TABLET (FP) PO SCH (09:15)
[2018-05-02] MEDS: APIXABAN 5 MG TABLET PO SCH (09:15)
[2018-05-02] MEDS: MORPHINE SULFATE 2 MG/ML VIAL IVPUSH PRN (09:16)
[2018-05-02] MEDS: METHYL SALICYLATE/MENTHOL OINT 30 GM TUBE TP SCH (10:52)
--- NOTE | 2018-05-02 11:50 | CONSULT ---
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 Ambulating with cane prior to LS fusion in 2016. He reports in June 2016 he developed acute low back pain attributed to a work- related injury and was immediately sent for lumbar fusion at [facility]. He reports ongoing "burning" in his low back with associated "numbness and tingling" constantly down the left leg, which he attributes to his prior stroke in 2012. More recently, it has involved the right leg and arm. He reports being followed by pain management, with minimal relief with use of percocet. He reports the back pain disrupts his sleep and can awaken him. More recently, he was trialed on nortriptyline, which "worsened the pain" in his back and legs, which was discontinued. He began taking motrin and tylenol in exceeding doses and has since had daily headaches from the R occiptal region to the roman catholic with associated photophobia, phonophobia and kinesiophobia. He denies prior history of headaches. PMHX: HTN, HLD, [place], defibrillator/pacemaker - 2011, DVT (on Eliquis), CVA (2012 with residual left-sided weakness), depression Medications: Carvedilol 12.5 mg PO BID, Gabapentin 300 mg PO TID, omeprazole, simvastatin, taumsulosin, trazodone, eliquis 5 mg bid, percocet 10-325 tid Allergies: diphenhydramine, cyclobenzaprine BP 100s/50, P 50s CT of LS spine 12/09 post-operative report reviewed: posterior fusion L4/L5, DJD without nerve compression Cardiology consult and report reviewed. KIMBER: PPM in L chest (-) bruits Neuro exam: Mentation/speech: Normal. CN II-XII: Normal. Motor: no drift. Strength normal. Sensory: Diminished vibratory sense up to L knee. Normal on R. Coordination: No FTN dystaxia Gait: slightly wide-based. Impression: 1. Chronic daily headache syndrome 2. Lumbosacral radiculopathy vs. peripheral neuropathy 3. ? Restless limb syndrome Plan: 1. Advise discontinuation of NSAIDS and tylenol 2. Update MRI of LS spine (C+/C-) 3. Consider discontinuation of opioids (as may lower blood pressure) and trial pramipexole 0.125 -> 0.25 mg po qhs 4. Should chronic daily headaches persist, consider titrating carvedilol and provide triptan for breakthrough headache 5. Obtain B12, TSH, Fe++, TIBC, Iron, Ferritin Thank you very much.
[2018-05-02 12:06] VITALS: BP 111/77; PULSE 68; TEMP 97.7
--- NOTE | 2018-05-02 12:13 | DS ---
Physical Examination Vital Signs: Vital Signs Temperature 97.7 F 05/02/18 09:00 Pulse Rate 68 05/02/18 09:00 Respiratory Rate 20 05/02/18 11:00 Blood Pressure 111/77 05/02/18 09:00 O2 Sat by Pulse Oximetry (%) 99 05/02/18 11:00 Findings/Remarks: - Primary Care Physician PCP: Kirstin Scott - Admission Chief Complaint: chest pain and headache History of Present Illness: The patient is a 57-year-old male, with a past medical history of HTN, HLD, [place], defibrillator/pacemaker - 2011, DVT (on Eliquis), CVA (2012 with residual left- sided weakness), who presents to the ED with chest pain that began at 11:30 AM. The patient states that he was seated when the pain came on. He describes the pain as constant, sharp/throbbing in sensation, radiating to his RT arm and neck , exacerbated with exertion, with associated lightheadness, weakness, and shortness of breath. He reports taking his morning medications, percocet, and nitro with no relief of his symptoms. Patient is also complaining of 1 year of upper and lower back pain since his spine surgery in 2016. The patient denies any fever, chills, nausea, vomiting, diarrhea, or abdominal pain. Denies any lower extremity swelling. Allergies: NKA Social History: None reported. Surgical History: hernia repair (1983), pacemaker/defibrillator (2011), lumbar spine fusion - 05/29/16. patient seen by cardiology on tele floor chest pain is musculoskeltal seen by neurology as well for headaches Constitutional: Yes: Calm Cardiovascular: Yes: Regular Rate and Rhythm, S1, S2 Respiratory: Yes: CTA Bilaterally Gastrointestinal: Yes: Normal Bowel Sounds, Soft Edema: No Neurological: Yes: Alert, Oriented Labs: CBC, BMP 04/30/18 12:15 04/30/18 12:15 Discharge Summary Reason For Visit: CHEST PAIN Current Active Problems Chest pain (Acute) Other Procedures: echo normal ejection fraction no wall motion abnormality Condition: Stable - Instructions - Home Medications Comprehensive Discharge Medication List: Ambulatory Orders Carvedilol 12.5 mg PO BID 06/12/17 Gabapentin 300 mg PO TID 06/12/17 Omeprazole 40 mg PO DAILY 06/12/17 Simvastatin 20 mg PO HS 06/12/17 Tamsulosin HCl [Flomax -] 0.4 mg PO DAILY 06/12/17 traZODone HCL [Trazodone HCl] 100 mg PO HS 06/12/17 Apixaban [Eliquis -] 5 mg PO BID tablet 11/15/17 Percocet 10-325 mg Tablet 10 - 325 mg PO TID 04/30/18
[2018-05-02] MEDS ORDERED: PRAMIPEXOLE DIHYDROCHLORIDE 0.125 MG TABLET PO SCH (22:00)
== END 2018-05-02 14:19 | disposition home or self-care (01) ==
LOC: JER 10:58 → JERBED 14:38 → J4W 20:13
PROVIDERS: ADMIT Family Medicine; ATTEND Family Medicine
PROC: 3E033NZ Introduction of Analgesics, Hypnotics, Sedatives into Peripheral Vein, Percutaneous Approach (ICD-10-PCS; principal; 2018-04-30)
DX: R07.89 Other chest pain (principal); I82.409 Acute embolism and thrombosis of unspecified deep veins of unspecified lower extremity; M54.5 Low back pain; G44.52 New daily persistent headache (NDPH); G25.81 Restless legs syndrome; I11.0 Hypertensive heart disease with heart failure; E78.5 Hyperlipidemia, unspecified; I25.2 Old myocardial infarction; E11.9 Type 2 diabetes mellitus without complications; I50.9 Heart failure, unspecified; I69.354 Hemiplegia and hemiparesis following cerebral infarction affecting left non-dominant side; Z87.891 Personal history of nicotine dependence; Z79.84 Long term (current) use of oral hypoglycemic drugs; Z86.718 Personal history of other venous thrombosis and embolism; Z95.810 Presence of automatic (implantable) cardiac defibrillator; Z79.01 Long term (current) use of anticoagulants; Z88.8 Allergy status to other drugs, medicaments and biological substances
CPT/HCPCS: 36415; 71045-TC-FY; 80053; 82550; 83735; 83880; 84100; 84484; 85025; 85610; 93005; 93010; 93306-TC; 96374; 96376; 99285-25; G0378

== ENCOUNTER 2018-07-15 14:18 | Emergency (ER) | payer OTHER ==
--- NOTE | 2018-07-15 14:35 | PDOC ---
Rapid Medical Evaluation Chief Complaint: Pain Time Seen by Provider: 07/15/18 14:32 Medical Evaluation: Allergies Allergy/AdvReac Type Severity Reaction Status Date / Time diphenhydramine HCl Allergy Intermediate hives/blist Verified 04/30/18 11:10 [From Benadryl] ers. cyclobenzaprine HCl AdvReac Intermediate drowsy, Verified 04/30/18 11:10 [From Flexeril] sedation 07/15/18 14:32 I did a brief in person evaluation on this patient. CC: "Pain around the pacemaker." HPI: Pt states he received a new pacemaker 2 weeks ago and his evidence specialist sent him to the ED for further evaluation as he states he has pain around the site and his left arm is hurting. PE: Skin: Clear Lungs: Clear Heart:RRR Abd: soft, non tender MS: Moves all extremities without difficulty Neuro: alert Psych: appropriate affect. I have ordered: CV protocol Pt will proceed to main ED for further evaluation. Discharge Disposition - Diagnosis Chest pain Qualifiers: Chest pain type: unspecified Qualified Code(s): R07.9 - Chest pain, unspecified - Referrals - Patient Instructions - Post Discharge Activity
[2018-07-15 14:36] VITALS: BMI 22.7
--- NOTE | 2018-07-15 14:47 | PDOC ---
History of Present Illness - General Chief Complaint: Pain Stated Complaint: PALPATATIONS Time Seen by Provider: 07/15/18 14:32 - History of Present Illness Initial Comments: 57 yo M w a pmh of CAD (s/p MT, cardiac cath and PM placement), AICD x3, HTN, HLD, CHF, L- CVA with weakness, sinusitis, spinal stenosis (s/p laminectomy), DVT (on Eliquis) walked into the ER via private auto with the CC of "pain around his AICD." The patient states he received a new AICD 2 weeks ago and his upholstery handler sent him to the ED for further evaluation as he states he has pain around the site and his left arm is hurting. He was supposed to have the battery of his AICD replaced but they decided to replace it altogether. His chest pain, left arm pain, and lightheadedness all began today acutely at 12 pm. PCP: Jovan Kramer Custom Home Installer: Dr. Lindsey Germain PSH: AICD Social Hx: Denies current smoking, drinking, or other substance usage. Smoked 20 years ago. Allergies: diphenhydramine, cyclobenzaprine Past History - Past Medical History Allergies/Adverse Reactions: Allergies Allergy/AdvReac Type Severity Reaction Status Date / Time diphenhydramine HCl Allergy Intermediate hives/blist Verified 04/30/18 11:10 [From Benadryl] ers. cyclobenzaprine HCl AdvReac Intermediate drowsy, Verified 04/30/18 11:10 [From Flexeril] sedation Home Medications: Ambulatory Orders Carvedilol 12.5 mg PO BID 06/12/17 Gabapentin 300 mg PO TID 06/12/17 Omeprazole 40 mg PO DAILY 06/12/17 Simvastatin 20 mg PO HS 06/12/17 Tamsulosin HCl [Flomax -] 0.4 mg PO DAILY 06/12/17 traZODone HCL [Trazodone HCl] 100 mg PO HS 06/12/17 Apixaban [Eliquis -] 5 mg PO BID tablet 11/15/17 Percocet 10-325 mg Tablet 10 - 325 mg PO BID #10 tab MDD 3 05/02/18 Asthma: No Cardiac Disorders: Yes (defibrillator/ PACEMAKER, hx [place]) CVA: Yes (2013 / mild weakness left side ) COPD: No Dementia: No Diabetes: No GI Disorders: No Disorders: No HTN: Yes Hypercholesterolemia: Yes Liver Disease: No Seizures: No Thyroid Disease: No - Surgical History Abdominal Surgery: Yes (hernia repair 1983) Cardiac Surgery: Yes (PACEMAKER/DEFIB: 2011) Orthopedic Surgery: Yes (05/29/16 lumbar fusion) - Immunization History Immunization Up to Date: Yes - Suicide/Smoking/Psychosocial Hx Smoking Status: No Smoking History: Never smoked Have you smoked in the past 12 months: No Number of Cigarettes Smoked Daily: 0 If you are a former smoker, when did you quit?: 20 YEARS AGO Information on smoking cessation initiated: No 'Breaking Loose' booklet given: 09/17/13 Hx Alcohol Use: No Drug/Substance Use Hx: No Substance Use Type: None Hx Substance Use Treatment: No Review of Systems - Review of Systems Able to Perform ROS?: Yes Comments:: CONSTITUTIONAL: Absent: fever, no chills, no fatigue EYES: Absent: visual changes ENT: Absent: ear pain, no sore throat CARDIOVASCULAR: Present: chest pain, palpitations, lightheadedness RESPIRATORY: Absent: cough, no SOB GI: Absent: abdominal pain, no nausea, no vomiting, no constipation, no diarrhea GENITOURINARY: Absent: dysuria, no frequency, no hematuria MUSKULOSKELETAL: Absent: back pain, no arthralgia, no myalgia SKIN: Absent: rash NEURO: Absent: headache *Physical Exam - Vital Signs Last Vital Signs Temp Pulse Resp BP Pulse Ox 98.4 F 71 18 105/70 97 07/15/18 14:33 07/15/18 14:33 07/15/18 14:33 07/15/18 14:33 07/15/18 14:33 - Physical Exam Comments: GENERAL: The patient is experiencing chest pain and is in moderate distress. HEENT: Normocephalic, atraumatic. PERRL, EOM intact. CARDIOVASCULAR: S1, S2, S3. Regular rate and rhythm. PULMONARY: No evidence of respiratory distress. Lungs clear to auscultation bilaterally. No wheezing, rales or rhonchi. ABDOMEN: Soft, non-distended, non-tender. EXTREMITIES: Normal ROM in all four extremities. No gross deformities. SKIN: Warm, dry. No rash NEUROLOGICAL: No focal neurological deficits other than left arm residual weakness from CVA ED Treatment Course - LABORATORY CBC & Chemistry Diagram: 07/15/18 15:14 07/15/18 15:14 - RADIOLOGY Radiograph Interpretation: Chest CT: Chest CT with contrast Clinical information: evaluate for AICD infection/fluid collection Multiplanar imaging was performed following the intravenous administration of nonionic contrast. In comparison to a prior CT exam of 11/14/2017 there is possible interval development of mild subcutaneous soft tissue stranding adjacent to the lateral border of a transvenous cardiac pulse generator. Possible minimal subcutaneous soft tissue stranding was seen in the same region on the prior CT study. Precise comparison is difficult due to metallic artifact arising from the pulse generator. Allowing for partially obscuring metallic artifact no obvious chest wall fluid collection is seen in that region. Right apical subpleural bullae are again noted. No evidence of pneumothorax, infiltrate or pleural effusion. There is no definite cardiac enlargement. No pericardial effusion is noted. No aortic aneurysm is seen. There is no discrete lymphadenopathy. The visualized osseous structures demonstrate no obvious acute pathology. Impression: Allowing for partially obscuring metallic artifact there appears to be minimal to mild subcutaneous edema adjacent to the left lateral border of a subcutaneous transvenous cardiac pulse generator along the left upper anterior chest No obvious fluid collection is noted allowing for partially obscuring artifact. Left Arm US: Left arm Doppler venous ultrasound Clinical information given: evaluate for DVT The exam was performed utilizing grayscale as well as Doppler sonography. The left internal jugular, subclavian, axillary, brachial, radial and ulnar veins appear patent. The superficial cephalic and basilic veins also demonstrate no evidence of thrombosis. Impression: There is no sonographic evidence of left arm DVT. Medical Decision Making - Medical Decision Making 57 yo M w a pmh of CAD (s/p MT, cardiac cath and PM placement), AICD x3, HTN, HLD, CHF, L- CVA with weakness, sinusitis, spinal stenosis (s/p laminectomy), DVT (on Eliquis) walked into the ER via private auto with the CC of "pain around his AICD." The patient states he received a new AICD 2 weeks ago and his upholstery handler sent him to the ED for further evaluation as he states he has pain around the site and his left arm is hurting. He was supposed to have the battery of his AICD replaced but they decided to replace it altogether. His chest pain, left arm pain, and lightheadedness all began today acutely at 12 pm. VS: WNL DDx IBNLT: ACS/MT, Arrhythmia, AICD malfunction vs infection, electrolyte/ metabolic derangement. Plan: Labs, CXR, EKG, Analgesia, Re-assess. Labs Unremarkable. Trop x2 negative. CXR shows no acute process. Left arm duplex shows no DVT Chest CT:No obvious difference from prior CT. limited study secondary to artifact. I spoke with the patient's Custom Home Installer who agrees this is likely not a cardiac issue or a AICD related problem. The upholstery handler informed me that the patient has been experiencing this pain for nearly 2 months now - which is 1 month and a half before the patient had the AICD surgery. the Custom Home Installer also informed me that the patient was seen at [facility] for a week last week regarding this same pain issue. This stay at [facility] was after the patient had the new AICD. I suspect there is an aspect of Drug seeking involved in this patient's case. He also failed to mention at first that he has a pain management doctor. When I originally asked him if he has ever taken anything for pain control he said nothing. Upon further review the patient has been taking percocets for quite some time at home which he got from his pain management doctor. All tests are negative. We will DC the patient with an orthopedic follow up to get an MRI to assess whether he has a radiculopathy or a spinal nerve issue. *DC/Admit/Observation/Transfer Diagnosis at time of Disposition: Left upper arm pain Chest pain Qualifiers: Chest pain type: unspecified Qualified Code(s): R07.9 - Chest pain, unspecified - Discharge Dispostion Disposition: HOME Condition at time of disposition: Stable Decision to Admit order: No - Referrals Referrals: Jovan Kramer [Primary Care Provider] - Durga Chu DO [Staff Physician] - Ford Heredia DO [Staff Physician] - - Patient Instructions Printed Discharge Instructions: DI for Atypical Chest Pain, DI for Chest Pain, DI for Arm Pain Additional Instructions: You came into the ER with left arm pain. We did a cat scan, an ultrasound of your arm, and bloodwork which all showed no abnormalities. It is very important for you to schedule a follow up appointment with your upholstery handler and the orthopedic surgeon we are referring you to. It is very possible this pain is coming from your spinal cord. Come back to the ER immediately if your pain worsens, you pass out, become nauseous or start vomiting, or have any other new or worsening concerns. Thank you for coming to the [facility] ER. We hope you feel better soon! Print Language: SOUTH KOREAN - Post Discharge Activity
[2018-07-15] MEDS ORDERED: ACETAMINOPHEN 1000 MG/100 ML VIAL (NON FORMULARY) IVPB ONE (15:27)
[2018-07-15 15:28] LABS: BASO % 0.4 % (0-2.0); EOS % 1.3 % (0-4.5); HEMOGLOBIN 13.4 GM/dL (11.7-16.9); LYMPH % 13.4 % (8-40); MCHC 33.5 g/dl (32.0-35.9); MEAN CELL VOLUME 86.7 fl (80-96); MEAN PLT VOLUME 9.4 fl (7.5-11.1); MONO % 4.6 % (3.8-10.2); NEUT % 80.3 % (42.8-82.8); PLATELET COUNT 169 K/MM3 (134-434); RBC 4.62 M/mm3 (4.00-5.60); RDW 14.3 % (11.9-15.9); WHITE BLOOD COUNT 10.6 K/mm3 (4.0-10.0)
[2018-07-15] MEDS ORDERED: ASPIRIN 325 MG TABLET PO ONE (15:28)
[2018-07-15] MEDS ORDERED: ACETAMINOPHEN INJECTION 100 ML IVPB ONE (15:31)
[2018-07-15] MEDS ORDERED: ASPIRIN 81 MG CHEWABLE TABLETS ONE (15:31)
[2018-07-15 15:37] LABS: INR 1.28 (0.83-1.09); PROTHROMBIN TIME (PATIENT) 15.2 SEC (9.7-13.0)
[2018-07-15 16:05] LABS: ALBUMIN 3.9 g/dl (3.4-5.0); ALK PHOS 76 U/L (45-117); ANION GAP 6 MMOL/L (8-16); BILIRUBIN,TOTAL 0.5 mg/dL (0.2-1); BLOOD UREA NITROGEN 11 mg/dL (7-18); CHLORIDE 106 mmol/L (98-107); CO2 26 mmol/L (21-32); CREATININE 1.1 mg/dL (0.55-1.3); GLUCOSE,RANDOM 84 mg/dL (74-106); MAGNESIUM 2.1 mg/dL (1.8-2.4); POTASSIUM 4.3 mmol/L (3.5-5.1); SGOT/AST 23 U/L (15-37); SGPT/ALT 38 U/L (13-61); SODIUM 139 mmol/L (136-145); TOT PROT 7.4 g/dl (6.4-8.2)
[2018-07-15] MEDS ORDERED: morphine CARPU-JECT 4 MG/1 ML DISP.SYRIN IVPUSH ONE ×2 (16:19→20:38)
--- NOTE | 2018-07-15 16:40 | PDOC ---
Documentation entered by Daniela Cai SCRIBE, acting as scribe for Ric Lewis MD. Ric Lewis MD: This documentation has been prepared by the Ayala knapp Renju, SCRIBE, under my direction and personally reviewed by me in its entirety. I confirm that the documentation accurately reflects all work, treatment, procedures, and medical decision making performed by me. Attending Attestation - Resident Resident Name: Raghu Stephens - ED Attending Attestation I have performed the following: I have examined & evaluated the patient, The case was reviewed & discussed with the resident, I agree w/resident's findings & plan - HPI HPI: 07/15/18 16:10 The patient is a 57 year old male with a past medical history of CAD (s/p OR, cardiac cath and Pacemaker placement), AICD x3, L- CVA with weakness, DVT (on Eliquis), hypertension, hyperlipidemia, congestive heart failure, sinusitis, spinal stenosis (s/p laminectomy) who presents to the emergency department for evaluation of "pain around his AICD." The patient reports sudden sharp pain around pacemaker radiating to his left arm which occurred at 12pm. He endorses associated symptoms of lightheadedness, nausea, and left hand paresthesia which also occurred since noon. Patient states he was prompted to visit the ED for further evaluation as his experimental machining lab manager sent him due to the aforementioned pain. Patient received AICD replacement two weeks ago at [facility] and notes he had the whole unit replaced as opposed to just the battery. Patient notes he stopped his eliquis for 3 days prior to the AICD replacement. The patient denies diaphoresis, headache, vomiting, fevers, chills, shortness of breath, abdominal pain, diarrhea, and constipation. Allergies: diphenhydramine, cyclobenzaprine PSH: AICD PCP: Jovan Kramer Curbing Stonecutter: Dr. Lindsey Germain - Physicial Exam PE: 07/15/18 16:15 GENERAL: The patient is awake, alert, and fully oriented, in no acute distress. HEAD: Normal with no signs of trauma. EYES: Pupils equal, round and reactive to light, extraocular movements intact, sclera anicteric, conjunctiva clear with no pallor. ENT: Ears normal, nares patent, oropharynx clear without exudates. Moist mucous membranes. NECK: Normal range of motion, supple without lymphadenopathy, JVD, or masses. CHEST: (+)healed incisional scar on left pectoral. Soft tissue swelling without erythema or warmth to AICD site. (+)tenderness to palpation to left pectoral, left shoulder, and left arm. LUNGS: Breath sounds equal, clear to auscultation bilaterally. No wheeze/ crackles. HEART: Regular rate and rhythm, normal S1 and S2 without murmur or rub. ABDOMEN: Soft/nontender/nondistended. BS wnl. No guarding or rebound. No palpable masses. No hepatosplenomegaly. EXTREMITIES: Left arm strength intact, ROM limited by pain otherwise, Normal range of motion, no edema. No clubbing or cyanosis. No cords, erythema, or tenderness. NEUROLOGICAL: Cranial nerves II through XII grossly intact. Normal speech, normal gait. PSYCH: Normal mood, normal affect. SKIN: Warm, Dry, normal turgor, no rashes or lesions noted. - Medical Decision Making 07/15/18 16:31 57y/o M p/w L chest/shoulder/arm pain two weeks s/p pacemaker/defibrillator change. no f/c but tender to palpation with sts. ? infection/hematoma, ? radiculopathy/arthropathy. nvi labs ct chest/L shoulder region doppler LUE given h/o DVT and need to halt eliquis periop pain control Heart Score/ECG Review #1 ECG reviewed & interpreted by me at: 14:37 07/15/18 16:39 av paced at 75. no secondary signs of acute ischemic change
[2018-07-15] MEDS ORDERED: morphine SULFATE 4 MG/ML VIAL ONE ×2 (17:49→22:04)
[2018-07-15 22:39] VITALS: BP 120/70; PULSE 67; TEMP 98.1
--- NOTE | 2018-07-16 10:27 | EKG ---
Test Reason : Blood Pressure : / mmHG Vent. Rate : 075 BPM Atrial Rate : 075 BPM P-R Int : 122 ms QRS Dur : 118 ms QT Int : 422 ms P-R-T Axes : 062 215 053 degrees QTc Int : 471 ms Atrial-sensed ventricular-paced rhythm ABNORMAL ECG WHEN COMPARED WITH ECG OF 30-APR-2018 11:05, VENT. RATE HAS INCREASED BY 19 BPM Confirmed by NIKKI JIMÉNEZ, KELLY ([id number]) on 07/16/2018 10:27:18 AM Referred By: Confirmed By:KELLY JORDAN MD
== END 2018-07-15 22:10 | disposition home or self-care (01) ==
LOC: JER 14:18
PROC: 3E033NZ Introduction of Analgesics, Hypnotics, Sedatives into Peripheral Vein, Percutaneous Approach (ICD-10-PCS; principal; 2018-07-15)
PROC: 3E0337Z Introduction of Electrolytic and Water Balance Substance into Peripheral Vein, Percutaneous Approach (ICD-10-PCS; 2018-07-15)
DX: R07.9 Chest pain, unspecified (principal); I25.10 Atherosclerotic heart disease of native coronary artery without angina pectoris; I10 Essential (primary) hypertension; E78.00 Pure hypercholesterolemia, unspecified; Z95.0 Presence of cardiac pacemaker
CPT/HCPCS: 36415; 71046-TC-FY; 71260-TC; 80053; 82550; 83735; 84484; 85025; 85610; 93005; 93010; 93971; 96374; 96375; 96376; 99283-25; J0131

== ENCOUNTER 2018-09-10 07:04 | Emergency (ER) | payer OTHER ==
[2018-09-10 07:30] VITALS: BMI 23.7
[2018-09-10] MEDS ORDERED: ACETAMINOPHEN 325 MG TABLET (FP) PO ONE (07:35)
[2018-09-10] MEDS ORDERED: ACETAMINOPHEN 325 MG TABLET (FP) ONE (07:40)
--- NOTE | 2018-09-10 09:03 | PDOC ---
History of Present Illness - General Chief Complaint: Sore Throat Stated Complaint: SORE THROAT Time Seen by Provider: 09/10/18 07:27 History Source: Patient - History of Present Illness Timing/Duration: reports: yesterday Past History - Past Medical History Allergies/Adverse Reactions: Allergies Allergy/AdvReac Type Severity Reaction Status Date / Time diphenhydramine HCl Allergy Intermediate hives/blist Verified 09/10/18 08:27 [From Benadryl] ers. cyclobenzaprine HCl AdvReac Intermediate drowsy, Verified 09/10/18 08:27 [From Flexeril] sedation Home Medications: Ambulatory Orders Carvedilol 12.5 mg PO BID 06/12/17 Gabapentin 300 mg PO TID 06/12/17 Omeprazole 40 mg PO DAILY 06/12/17 Simvastatin 20 mg PO HS 06/12/17 traZODone HCL [Trazodone HCl] 100 mg PO HS 06/12/17 Apixaban [Eliquis -] 5 mg PO BID tablet 11/15/17 Losartan Potassium [Cozaar -] 50 mg PO DAILY 09/10/18 oxyCODONE SR [Oxycontin] 10 mg PO BID 09/10/18 Asthma: No Cardiac Disorders: Yes (defibrillator/ PACEMAKER, hx [place]) CVA: Yes (2013 / mild weakness left side ) COPD: No Dementia: No Diabetes: No GI Disorders: No Disorders: No HTN: Yes Hypercholesterolemia: Yes Liver Disease: No Seizures: No Thyroid Disease: No - Surgical History Abdominal Surgery: Yes (hernia repair 1983) Cardiac Surgery: Yes (PACEMAKER/DEFIB: 2011) Orthopedic Surgery: Yes (05/29/16 lumbar fusion) - Immunization History Immunization Up to Date: Yes - Suicide/Smoking/Psychosocial Hx Smoking Status: No Smoking History: Never smoked Have you smoked in the past 12 months: No Number of Cigarettes Smoked Daily: 0 If you are a former smoker, when did you quit?: 20 YEARS AGO Information on smoking cessation initiated: No 'Breaking Loose' booklet given: 09/17/13 Hx Alcohol Use: No Drug/Substance Use Hx: No Substance Use Type: None Hx Substance Use Treatment: No Review of Systems - Review of Systems Constitutional: No: Chills, Fever HEENTM: Yes: Throat Pain. No: Ear Pain Respiratory: No: Cough *Physical Exam - Vital Signs Last Vital Signs Temp Pulse Resp BP Pulse Ox 98.2 F 74 18 103/69 98 09/10/18 07:21 09/10/18 07:21 09/10/18 07:21 09/10/18 07:21 09/10/18 07:21 - Physical Exam General Appearance: Yes: Appropriately Dressed. No: Apparent Distress HEENT: positive: Normal ENT Inspection, Normal Voice, TMs Normal, Pharynx Normal. negative: Scleral Icterus (R), Scleral Icterus (L) Neck: positive: Supple. negative: Lymphadenopathy (R), Lymphadenopathy (L) Respiratory/Chest: negative: Respiratory Distress Integumentary: positive: Dry, Warm Neurologic: positive: Fully Oriented, Alert, Normal Mood/Affect ED Treatment Course - Medications Given in the ED: ED Medications Discontinued Medications Generic Name Dose Route Start Last Admin Trade Name Coby PRN Reason Stop Dose Admin Acetaminophen 650 mg 09/10/18 07:35 09/10/18 07:47 Tylenol - PO 09/10/18 07:36 650 mg ONCE ONE Administration Medical Decision Making - Medical Decision Making 09/10/18 08:51 57 yo male, h/o CAD, PPM, COPD (no tob hx), here w/ L sided throat pain since last night, hurts to swallow. No cough,ear pain, f/c. No sick contacts. Has not taken anything for pain see exam Pharyngitis Possibly viral Exam unremarkable Rapid strep neg -dc w/ OTC pain meds -to return as needed *DC/Admit/Observation/Transfer Diagnosis at time of Disposition: Pharyngitis - Discharge Dispostion Disposition: HOME Condition at time of disposition: Improved - Referrals Referrals: Jovan Kramer [Primary Care Provider] - - Patient Instructions Printed Discharge Instructions: Sore Throat Additional Instructions: The most common cause of a sore throat is a virus Your strep test was negative Take tylenol for pain as needed - Post Discharge Activity
[2018-09-10 09:12] VITALS: BP 105/68; PULSE 70; TEMP 98
== END 2018-09-10 09:12 | disposition home or self-care (01) ==
LOC: JER 07:04
DX: J02.9 Acute pharyngitis, unspecified (principal); I25.10 Atherosclerotic heart disease of native coronary artery without angina pectoris; Z95.0 Presence of cardiac pacemaker; J44.9 Chronic obstructive pulmonary disease, unspecified
CPT/HCPCS: 87070; 87880; 99281-25

== ENCOUNTER 2018-10-29 14:22 | Emergency (ER) | payer OTHER ==
[2018-10-29] MEDS ORDERED: DIPHTH,PERTUSS(ACELL),TET 0.5 ML DISP.SYRIN IM ONE ×2 (14:35→14:57)
--- NOTE | 2018-10-29 14:35 | PDOC ---
Rapid Medical Evaluation Time Seen by Provider: 10/29/18 14:31 Medical Evaluation: Allergies Allergy/AdvReac Type Severity Reaction Status Date / Time diphenhydramine HCl Allergy Intermediate hives/blist Verified 09/10/18 08:27 [From Benadryl] ers. cyclobenzaprine HCl AdvReac Intermediate drowsy, Verified 09/10/18 08:27 [From Flexeril] sedation 10/29/18 14:31 I have performed a brief in-person evaluation of this patient. The patient presents with a chief complaint of: laceration to medial left knee- on Xarelto Pertinent physical exam findings: ~3cm superficial laceration to left medial knee I have ordered the following: Td. The patient will proceed to the ED for further evaluation. Discharge Disposition - Diagnosis Laceration - Referrals - Patient Instructions - Post Discharge Activity
[2018-10-29 14:36] VITALS: BP 128/82; PULSE 72; TEMP 97.3; BMI 24.0
--- NOTE | 2018-10-29 16:17 | PDOC ---
History of Present Illness - General Chief Complaint: Laceration Stated Complaint: LT.LEG LAC Time Seen by Provider: 10/29/18 14:31 History Source: Patient Exam Limitations: No Limitations - History of Present Illness Initial Comments: 10/29/18 16:26 58 -year-old male presents to ED with laceration sustained from a piece of glass to the back of his left knee while helping a friend do some outside work. Patient states is currently on Xarelto and was concerned since the bleeding continued despite the small opening noted to leg. Patient states is not up-to- date on his tetanus and has no other complaints at this time. Timing/Duration: 1-3 hours Severity: mild Associated Symptoms: reports: other Past History - Travel Traveled outside of the country in the last 30 days: No Close contact w/someone who was outside of country & ill: No - Past Medical History Allergies/Adverse Reactions: Allergies Allergy/AdvReac Type Severity Reaction Status Date / Time diphenhydramine HCl Allergy Intermediate hives/blist Verified 10/29/18 14:35 [From Benadryl] ers. cyclobenzaprine HCl AdvReac Intermediate drowsy, Verified 10/29/18 14:35 [From Flexeril] sedation Home Medications: Ambulatory Orders Carvedilol 12.5 mg PO BID 06/12/17 Gabapentin 300 mg PO TID 06/12/17 Omeprazole 40 mg PO DAILY 06/12/17 Simvastatin 20 mg PO HS 06/12/17 traZODone HCL [Trazodone HCl] 100 mg PO HS 06/12/17 Losartan Potassium [Cozaar -] 50 mg PO DAILY 09/10/18 oxyCODONE SR [Oxycontin] 10 mg PO BID 09/10/18 Acetaminophen [8Hr Arthritis Pain] 650 mg PO TID PRN #21 tablet.er 10/29/18 Rivaroxaban [Xarelto -] 20 mg PO DAILY 10/29/18 Asthma: No Cardiac Disorders: Yes (defibrillator/ PACEMAKER, hx [place]) CVA: Yes (2013 / mild weakness left side ) COPD: No Dementia: No Diabetes: No GI Disorders: No Disorders: No HTN: Yes Hypercholesterolemia: Yes Liver Disease: No Seizures: No Thyroid Disease: No - Surgical History Abdominal Surgery: Yes (hernia repair 1983) Cardiac Surgery: Yes (PACEMAKER/DEFIB: 2011) Orthopedic Surgery: Yes (05/29/16 lumbar fusion) - Immunization History Immunization Up to Date: Yes - Suicide/Smoking/Psychosocial Hx Smoking Status: No Smoking History: Never smoked Have you smoked in the past 12 months: No Number of Cigarettes Smoked Daily: 0 If you are a former smoker, when did you quit?: 20 YEARS AGO 'Breaking Loose' booklet given: 09/17/13 Hx Alcohol Use: No Drug/Substance Use Hx: No Substance Use Type: None Hx Substance Use Treatment: No Patient Lives Alone: No Lives with/in: spouse/SO Review of Systems - Review of Systems Able to Perform ROS?: Yes Constitutional: No: Symptoms Reported Integumentary: Yes: Other (laceration) Neurological: No: Symptoms reported Endocrine: No: Symptoms Reported Hematologic/Lymphatic: No: Symptoms Reported *Physical Exam - Vital Signs Last Vital Signs Temp Pulse Resp BP Pulse Ox 97.3 F L 72 16 128/82 98 10/29/18 14:32 10/29/18 14:32 10/29/18 14:32 10/29/18 14:32 10/29/18 14:32 - Physical Exam General Appearance: Yes: Nourished, Appropriately Dressed. No: Apparent Distress Vascular Pulses: Doralis-Pedis (L): 1+ Integumentary: positive: Other (Noted less than 3 cm superficial laceration losing a small amount of blood from the proximal asked back of abrasion which is located the posterior/medial aspect of left knee) Neurologic: positive: Motor Strength 5/5 (ambulatory) ED Treatment Course - Medications Given in the ED: ED Medications Discontinued Medications Generic Name Dose Route Start Last Admin Trade Name Corbinq PRN Reason Stop Dose Admin Diphtheria/Tetanus/Acell Pertussis 0.5 ml 10/29/18 14:35 10/29/18 15:37 Boostrix - IM 10/29/18 14:36 Not Given .ONCE ONE Medical Decision Making - Medical Decision Making 10/29/18 16:27 Patient sustained laceration to left posterior patella by a piece of glass outside while helping a friend do outside work patient is not date of the tetanus but is refusing. Surgicel applied secondary to noted bleeding and secured with Kishan wrap. Patient given instructions on what to do at home *DC/Admit/Observation/Transfer Diagnosis at time of Disposition: Laceration - Discharge Dispostion Disposition: HOME Condition at time of disposition: Improved - Referrals Referrals: Shandra Lambert [Primary Care Provider] - - Patient Instructions Printed Discharge Instructions: DI for Minor Laceration Additional Instructions: Please keep area clean and dry allowing area to not get wet for at least 48-72 hours to promote healing and clotting. Do not change bandage until saturday night. - Post Discharge Activity
== END 2018-10-29 16:24 | disposition home or self-care (01) ==
LOC: JERFT 14:22
PROC: 0HQLXZZ Repair Left Lower Leg Skin, External Approach (ICD-10-PCS; principal; 2018-10-29)
DX: S81.812A Laceration without foreign body, left lower leg, initial encounter (principal); W25.XXXA Contact with sharp glass, initial encounter; Y93.H9 Activity, other involving exterior property and land maintenance, building and construction; Y92.017 Garden or yard in single-family (private) house as the place of occurrence of the external cause; Y99.8 Other external cause status; I25.10 Atherosclerotic heart disease of native coronary artery without angina pectoris; I10 Essential (primary) hypertension; I25.2 Old myocardial infarction; Z79.01 Long term (current) use of anticoagulants; E78.00 Pure hypercholesterolemia, unspecified; I69.854 Hemiplegia and hemiparesis following other cerebrovascular disease affecting left non-dominant side; Z95.810 Presence of automatic (implantable) cardiac defibrillator
CPT/HCPCS: 99282-25